=== PATIENT | female | born 1985 | race Caucasian/White ===

== ENCOUNTER → 2016-11-16 | Outpatient (REF) | payer OTHER ==
[2016-11-16 13:44] LABS: BASO % 0.3 % (0.0-1.0); EOS # 0.1 K/mm3 (0.0-0.50); EOS % 1.3 % (0.0-3.0); LARGE UNSTAINED CELL % 0.7 % (0.0-4.0); LYMPH # 1.1 K/mm3 (1.5-4.5); LYMPH % 18.6 % (24.0-44.0); MEAN CORPUSCULAR HEMOGLOBIN 29.6 pg (27.0-33.0); MEAN CORPUSCULAR HGB CONC 33.8 g/dl (32.0-36.5); MEAN CORPUSCULAR VOLUME 87.6 fl (80.0-96.0); MONO # 0.3 K/mm3 (0.0-0.8); NEUTROPHILS # 4.2 K/mm3 (1.8-7.7); NEUTROPHILS % 74.1 % (36.0-66.0); PLATELET COUNT, AUTOMATED 263 k/mm3 (150-450); WHITE BLOOD COUNT 5.6 K/mm3 (4.0-10.0)
[2016-11-16 14:08] LABS: ERYTHROCYTE SEDIMENTATION RATE 35 mm/hr (0-20)
[2016-11-16 14:21] LABS: ALBUMIN 3.5 GM/DL (3.2-5.2); ALBUMIN/GLOBULIN RATIO 1.17 (1.00-1.93); ALKALINE PHOSPHATASE 31 U/L (45-117); ALT/SGPT 22 U/L (12-78); ANION GAP 10 MEQ/L (8-16); AST/SGOT 8 U/L (15-37); BILIRUBIN,TOTAL 0.3 MG/DL (0.2-1.0); BLOOD UREA NITROGEN 6 MG/DL (7-18); CALCIUM LEVEL 9.4 MG/DL (8.5-10.1); CARBON DIOXIDE LEVEL 22 MEQ/L (21-32); CHLORIDE LEVEL 102 MEQ/L (98-107); CREATININE FOR GFR 0.41 MG/DL (0.55-1.02); GLOMERULAR FILTRATION RATE > 60.0 (>60); GLUCOSE, FASTING 75 MG/DL (70-105); POTASSIUM SERUM 3.8 MEQ/L (3.5-5.1); SODIUM LEVEL 134 MEQ/L (136-145); TOTAL PROTEIN 6.5 GM/DL (6.4-8.2)
[2016-11-16 14:27] LABS: FOLATE > 24.0 NG/ML; VITAMIN B12 LEVEL 263 PG/ML
[2016-11-20 10:40] LABS: ALBUMIN 3.87 GM/DL (3.29-5.55); ALBUMIN % 59.6 % (55.8-66.1); GAMMA GLOBULIN % 7.6 % (11.1-18.8)
[2016-11-21 08:07] LABS: Lyme Disease IgG/IgM Antibodie <0.91 ISR (0.00-0.90); Lyme Disease IgM Ab Quantitati <0.80 index (0.00-0.79); VITAMIN E LEVEL 15.8 mg/L (5.3-16.8)
== END ==
LOC: M LABNEURO 13:22
PROVIDERS: ATTEND Psychiatry & Neurology Neurology
DX: G62.9 Polyneuropathy, unspecified (principal)

== ENCOUNTER 2017-03-22 05:11 | Emergency (ER) | payer OTHER ==
[~2017-03-22] VITALS: Ht 157.5 cm; Wt 100.0 kg
[2017-03-22 05:20] VITALS: BP 148/72
[2017-03-22] MEDS ORDERED: PRENTAB55 PO (05:29)
[2017-03-22] MEDS ORDERED: VITA500046 PO (05:29)
[2017-03-22] MEDS ORDERED: BENA25CA4 PO (05:29)
[2017-03-22] MEDS ORDERED: IRON50TA PO (05:29)
[2017-03-22] MEDS ORDERED: UNIS25TA2 PO (05:29)
[2017-03-22] MEDS ORDERED: MAGN400T5 PO (05:29)
[2017-03-22] MEDS ORDERED: LOVE1INJ SC (05:29)
[2017-03-22] MEDS ORDERED: diphenhydrAMINE INJ 50MG/ML VIAL (J1200) IV STA (05:46)
[2017-03-22] MEDS ORDERED: methylPREDNISolone INJ 125 MG/2 ML VIAL (J2930) IV ONE (06:00)
[2017-03-22] MEDS ORDERED: FAMOTIDINE INJ 20MG/2ML VIAL (S0028) IVP ONE (06:00)
== END 2017-03-22 07:07 | disposition home or self-care (01) ==
LOC: M ED 05:11
DX: O9A.213 Injury, poisoning and certain other consequences of external causes complicating pregnancy, third trimester (principal); R22.0 Localized swelling, mass and lump, head; T37.8X5A Adverse effect of other specified systemic anti-infectives and antiparasitics, initial encounter; X58.XXXA Exposure to other specified factors, initial encounter; Y92.89 Other specified places as the place of occurrence of the external cause; Y93.89 Activity, other specified; Y99.8 Other external cause status; Z3A.36 36 weeks gestation of pregnancy
CPT/HCPCS: 96374; 96375; 99284; J1200; J2930

== ENCOUNTER 2017-04-08 20:02 | Outpatient (CLI) | payer OTHER ==
[~2017-04-08] VITALS: Ht 157.5 cm; Wt 102.0 kg
[~2017-04-08 20:02] MED LIST: BENA25CA4 PO; IRON50TA PO; LOVE1INJ SC; MAGN400T5 PO; PRENTAB55 PO; UNIS25TA2 PO; VITA500046 PO
[2017-04-08 20:24] VITALS: BP 131/80
[2017-04-08] MEDS ORDERED: HEPA10004 IJ (21:01)
[2017-04-08 21:35] VITALS: BP 140/91
== END 2017-04-08 21:58 | disposition home or self-care (01) ==
LOC: M LDO 20:02
PROVIDERS: ATTEND Obstetrics & Gynecology
DX: O36.8130 Decreased fetal movements, third trimester, not applicable or unspecified (principal); Z3A.39 39 weeks gestation of pregnancy; D68.51 Activated protein C resistance; Z88.8 Allergy status to other drugs, medicaments and biological substances; O99.113 Other diseases of the blood and blood-forming organs and certain disorders involving the immune mechanism complicating pregnancy, third trimester; O99.843 Bariatric surgery status complicating pregnancy, third trimester

== ENCOUNTER 2017-04-09 06:11 | Inpatient (IN) | payer OTHER ==
[~2017-04-09] VITALS: Ht 157.5 cm; Wt 102.0 kg
[2017-04-09] VITALS (50 sets, daily range): BP systolic 89–143; BP diastolic 47–78
[~2017-04-09 06:11] MED LIST changes: +HEPA10004 IJ
[2017-04-09] MEDS ORDERED: LACTATED RINGER'S 1000 ML IV STA (07:57)
[2017-04-09] MEDS ORDERED: miSOPROStol 25 MCG 1/4 TAB (S0191) PV ONE (08:00)
[2017-04-09 08:54] LABS: MEAN CORPUSCULAR HEMOGLOBIN 30.8 pg (27.0-33.0); MEAN CORPUSCULAR HGB CONC 34.3 g/dl (32.0-36.5); MEAN CORPUSCULAR VOLUME 89.9 fl (80.0-96.0); PLATELET COUNT, AUTOMATED 257 10^3/uL (150-450); RED CELL DISTRIBUTION WIDTH 14.4 % (11.5-14.5); WHITE BLOOD COUNT 8.2 10^3/uL (4.0-10.0)
[2017-04-09] MEDS: LR 1,000 ML IV SCH ×3 (10:01→23:57)
[2017-04-09] MEDS: BUTORPHANOL 2 MG/ML INJ (J0595) IV PRN ×3 (11:03→18:38)
[2017-04-09] MEDS ORDERED: OXYTOCIN 30 UNITS IN 0.9% NaCl 500ML IV BAG (J2590) As Ordered ONE (13:55)
[2017-04-09] MEDS ORDERED: OXYTOCIN DRIP 30 UNITS in APPROPRIATE DILUENT 1 EA IV SCH (14:00)
--- NOTE | 2017-04-09 18:55 | HPEPDOC ---
Obstetrical History & Physical General Date of Admission Apr 09, 2017 at 06:11 History of Present Illness Chay is a 32yo with SIUP at 39w2d who presented this morning for scheduled IOL in heparin window, being treated for Factor V Leiden heterozygosity. She feels well, good movement, only rare ctx, no LOF/VB. Problem List: 1) Factor V Leiden heterozygous -NO hx of blood clot -On Lovenox through until changed to Heparin BID at 36wk 2) Hx of gastric sleeve and continued obesity (pre- BMI 38) -normal nutrition labs -Growth scan Feb at 34 wk = 67%ile -22lb weight gain in -Normal fingersticks at 28wk 3) A negative MBT -received Rhogam on 25 January at 28wk 4) Upper extremity nerve pain -Was on gabapentin until 5 months -Following with neurology, declined physical therapy 5) NIPT showed a 2% risk for Klinefelter Syndrome -Will obtain cord blood in green heparin vacutainer tube for chromosome analysis 6) Migraines -Rx Mg Oxide 7) Seasonal allergies -Rx zyrtec -frequent sinus infections, took augmentin a few times in 8) Insomnia 9) PCOS Chief Complaint: Induction of labor Information Provided By: Patient Care Care: Good Care Dating Final EDC: Apr 14, 2017 Final EDC by: 1st trimester (US) Antepartum Course Diagnos(e)s See HPI for extensive problem list 2% risk for infant having Klinefelter Syndrome by elevated risk on NIPT Height (inches): 62 Pre- weight (lbs.): 203 Admission Weight (lbs.): 225 Change in Weight (lbs.): 22 Past Medical History Past Obstetrical History : Past Obstetrical History: Primgravida (One early sab in 2012) DRAWER IN DOBBY LOOM History: Other (PCOS) Past Medical History Medical History See HPI for extensive problem list Surgical History: Abdominoplasty, Gallbladder, Tonsilectomy, Other (gastric sleeve 2014, sinus surgery x2, carpal tunnel x2) Family History Significant Family History: Noncontributory Social History Marital Status: Family situation: Spouse/partner home Psychosocial History: Anxiety * Smoker: non-smoker Alcohol: Denies Drugs: denies Imunizations Tdap status: current Influenza Status: current Allergies Coded Allergies: Fluconazole (Verified Allergy, Mild, LIP SWELLING, 03/22/17) Levofloxacin (Verified Allergy, Mild, HIVES, 03/22/17) Medications Scheduled (Unisom) 25 Mg Tab, 50 MG PO QHS Cholecalciferol (Vitamin D) 5,000 Unit Tab, 5,000 UNIT PO DAILY Diphenhydramine HCl (Benadryl Allergy) 25 Mg Cap, 25 MG PO QHS Ferrous Sulfate (Iron (Ferrous Sulfate)) 50 Mg Tab, 325 MG PO BID Magnesium Oxide (Magnesium Oxide 400) 400 Mg Tab, 400 MG PO BID Multivitamins/ ( ) 1 Tab Tab, 1 TAB PO DAILY Miscellaneous Medications Heparin Sodium (Porcine) (Heparin Sodium) 5,000 Unit/0.5 Ml Inj, 5,000 UNIT IJ Physical Examination Physical Examination GENERAL: Alert and oriented times three. BREAST: . ABDOMEN: Gravid and non-tender to touch. Abdominoplasty scars noted. FETUS: Is vertex (VTX) by TAUS EXTREMITIES: trace edema of BLE Vital Signs/I&O Vital Signs Date Time Temp Pulse Resp B/P (MAP) Pulse Ox O2 Delivery O2 Flow Rate FiO2 04/09/17 16:28 63 18 99/52 (68) 04/09/17 13:13 97.8 I&O- Last 24 Hours up to 6 AM 04/10/17 06:00 Intake Total 1000 ml Output Total 2100 ml Balance -1100 ml Laboratory Data 24H LABS Laboratory Tests 2 04/09/17 07:10: Serology Scanned Report Hepatitis B Testing 04/09/17 08:48: Nucleated Red Blood Cells % (auto) 0.0, Urine Amphetamines Screen NEGATIVE, Urine Benzodiazepines Screen NEGATIVE, Urine Opiates Screen NEGATIVE, Urine Methadone Screen NEGATIVE, Urine Barbiturates Screen NEGATIVE, Urine Phencyclidine Screen NEGATIVE, Urine Cocaine Metabolite Screen NEGATIVE, Urine Cannabinoids Screen NEGATIVE, Syphilis Serology NONREACTIVE CBC/BMP Laboratory Tests 04/09/17 08:48 Red Blood Count 3.86 L, Mean Corpuscular Volume 89.9, Mean Corpuscular Hemoglobin 30.8, Mean Corpuscular Hemoglobin Concent 34.3, Red Cell Distribution Width 14.4 Urine Culture: No Growth Pertinent Laboratoy Data Blood Type: A- RBC Antibody Screen: Negative HIV: Negative Hepatitis B: Negative Hepatitis C: Unknown Rapid Plasma Reagin: Nonreactive Rubella: Immune Varicella: Immune Chlamydia/Gonorrhea: Negative Group B Streptococcus: Negative Quad Screen Test: Negative Cystic Fibrosis: Negative Anatomy Ultrasound Ultrasound Date: Nov 28, 2016 Placenta Location: Anterior Normal Anatomy: Yes Placenta Previa: No Other Ultrasounds 05 Mar 2017, 34wk GS, 67%ile Steroid Therapy Steroid Therapy: No Vaginal Examination Dilation: 1cm Effacement: 50% Station: -3 Cervical Consistency: Medium Cervical Position: Middle Presentation: Cephalic presentation Assessment Heart Rate (FHR): 130 Variability: Moderate Accelerations: Positive Decelerations: None Tocometer Contractions: No Assessment/Plan Assessment Chay is a 32yo with SIUP at 39w2d who is admitted for IOL in heparin window, being treated for Factor V Leiden heterozygosity. Cephalic presentation , GBS negative. SCE /-3. FHRT Cat I. Problem List: 1) Factor V Leiden heterozygous -NO hx of blood clot -On Lovenox through until changed to Heparin BID at 36wk 2) Hx of gastric sleeve and continued obesity (pre- BMI 38) -normal nutrition labs -Growth scan Feb at 34 wk = 67%ile -22lb weight gain in -Normal fingersticks at 28wk 3) A negative MBT -received Rhogam on 25 January at 28wk 4) Upper extremity nerve pain -Was on gabapentin until 5 months -Following with neurology, declined physical therapy 5) NIPT showed a 2% risk for Klinefelter Syndrome -Will obtain cord blood in green heparin vacutainer tube for chromosome analysis 6) Migraines -Rx Mg Oxide 7) Seasonal allergies -Rx zyrtec -frequent sinus infections, took augmentin a few times in 8) Insomnia 9) PCOS Plan Admit and orient. Counseled and consented for IOL Diet: regular for breakfast then clear liquids Group B Streptococcus (GBS) negative Labs and intravenous (IV) per unit protocol. Counseled on cytotec, meneses bulb, Pitocin and induction of labor (IOL). Meneses bulb placed without incident, 40ml in uterine port of cook catheter 25mcg cytotec placed vaginally Stadol 2mg IV q4hr prn pain, patient aware she is a candidate for epidural and order placed for when patient is in active labor Lactated Ringers (LR): Bolus 1000 mL, then at 125 mL/hr. Anticipate normal spontaneous delivery () C-S as appropriate. Plan to obtain cord blood for chromosomal analysis, nursing team aware and green topped tubes obtained Plan to restart Lovenox [address] Divina Iverson MD [place] Divina Bryant MD Apr 09, 2017 18:55
--- NOTE | 2017-04-09 18:59 | IPNPDOC ---
Text Note Date of Service The patient was seen on 04/09/17. NOTE Intrapartum Note Chay is doing well. Does not yet desire epidural, had one dose of IV stadol with excellent pain control. Wells bulb fell out approx 2 hours ago. Pitocin was started earlier and has been titrated up to 6mu. Vitals wnl Cat I FHRT Ctx are difficult to pick up and delivery driver on toco, but by observing pt, occurring approx q2- 4min SCE now /-3 Plan to continue to titrate pitocin per protocol Ok to repeat IV stadol 2mg x1 Will recheck SCE when patient more uncomfortable safe to proceed Dr. Divina Iverson MD [place] [facility] VS,Theodora, I+O VS, Theodora, I+O Laboratory Tests 04/09/17 08:48 Red Blood Count 3.86 L, Mean Corpuscular Volume 89.9, Mean Corpuscular Hemoglobin 30.8, Mean Corpuscular Hemoglobin Concent 34.3, Red Cell Distribution Width 14.4 Vital Signs Date Time Temp Pulse Resp B/P (MAP) Pulse Ox O2 Delivery O2 Flow Rate FiO2 04/09/17 16:28 63 18 99/52 (68) 04/09/17 13:13 97.8 I&O- Last 24 Hours up to 6 AM 04/10/17 06:00 Intake Total 1000 ml Output Total 2100 ml Balance -1100 ml Divina Iverson MD Apr 09, 2017 18:59
[2017-04-09] MEDS ORDERED: FENTANYL 2MCG/ML ROPIVACAINE 0.2% IN 0.9% NACL 200ML IVBAG As Ordered ONE (20:39)
[2017-04-09] MEDS ORDERED: ePHEDrine SULFATE 25 MG/5 ML(5MG/ML) SYRINGE As Ordered ONE (22:12)
[2017-04-09] MEDS: ePHEDrine SULFATE 25 MG/5 ML(5MG/ML) SYRINGE IV PRN ×2 (22:16→22:24)
[2017-04-09] MEDS ORDERED: FENTANYL/ROPIVACAINE/NACL BAG 200 ML EPIDURAL SCH (22:30)
[2017-04-09] MEDS ORDERED: EPIDURAL/PCA KEYS XX PRN (22:30)
[2017-04-09] MEDS ORDERED: diphenhydrAMINE INJ 50MG/ML VIAL (J1200) IV PRN (22:30)
[2017-04-09] MEDS ORDERED: REFRIGERATOR IV KEYS XX PRN (22:30)
[2017-04-09] MEDS ORDERED: NALOXONE INJ 0.4 MG/1 ML VIAL (J2310) IV PRN (22:30)
[2017-04-09] MEDS ORDERED: LACTATED RINGER'S 1000 ML IV PRN (22:30)
[2017-04-09] MEDS ORDERED: ONDANSETRON 4MG/2ML VIAL (J2405) IV PRN (22:30)
[2017-04-09] MEDS ORDERED: EPIDURAL COMMENT XX SCH (22:30)
[2017-04-09] MEDS ORDERED: ACETAMINOPHEN TAB 650MG DOSE (2X325MG) PO ONE (22:45)
[2017-04-09] MEDS ORDERED: PHENYLEPHRINE INJ 10MG/ML VIAL (J2370) IV PRN (22:45)
[2017-04-10] VITALS (33 sets, daily range): BP systolic 77–129; BP diastolic 38–72
--- NOTE | 2017-04-10 01:05 | IPNPDOC ---
Text Note Date of Service The patient was seen on 04/10/17. NOTE Intrapartum Note Called to room by RN for SROM with meconium, minimal variability in FHRT Patient had run of shallow late decelerations after epidural earlier around 2230. Mom was symptomatic with nausea/headache with only slightly lower bp's, so mom was given ephedrine, placed on her side, given O2 and pitocin was turned off. FHR decelerations resolved for a time with noted moderate variability, but then FHR pattern became slightly "sinusoidal" appearing for approx 12 minutes and resolved to a period of moderate variability followed by a 7 minute stretch of minimal variability. Sometime during that period SROM also occurred with thick meconium noted. SCE was performed by RN and reported 4/ 50/-3 with head being ballotable. Patient comfortable with epidural, only feeling slight cramping sensation. BP's 90's/50's SCE 5/75/-3, amniotic fluid slowly allowed to flow out so that head came to eventually rest on the cervix and no longer ballotable. IUPC and FSE placed. FHR tolerated well. With the head stim, FHRT showed moderate variability and accelerations. Will plan to perform 250ml NS amnioinfusion x1 If continued Cat I FHRT for 30 min, will plan to restart pitocin at 2mu and titrate up per protocol to tolerance and adequate MVUs by IUPC if possible Currently 20min of Cat I FHRT observed since placement of FSE/IUPC Safe to proceed Dr. Divina Iverson MD [place] MICHELLE GUZMAN,Theodora I+O VSTheodora I+O Laboratory Tests 04/09/17 08:48 Red Blood Count 3.86 L, Mean Corpuscular Volume 89.9, Mean Corpuscular Hemoglobin 30.8, Mean Corpuscular Hemoglobin Concent 34.3, Red Cell Distribution Width 14.4 Vital Signs Date Time Temp Pulse Resp B/P (MAP) Pulse Ox O2 Delivery O2 Flow Rate FiO2 04/09/17 19:10 16 04/09/17 18:57 72 94/51 (65) 04/09/17 18:30 97.4 Divina Iverson MD Apr 10, 2017 01:05
[2017-04-10] MEDS: ePHEDrine SULFATE 25 MG/5 ML(5MG/ML) SYRINGE IV PRN (02:31)
--- NOTE | 2017-04-10 05:29 | IPNPDOC ---
Text Note Date of Service The patient was seen on 04/10/17. NOTE Intrapartum Note I was called to room by RN for patient feeling pressure and recent stop of pitocin for FHRT with periods of minimal variability and recent late decel. Patient feeling pain with contractions, has not yet been using button for epidural boluses. Vitals wnl SCE 5/75/-2 Return of mod maxwell with SCE but also a coinciding FHRT decel from 150's to 120's that resolved over 3 min, Cat I-II FHRT. Ctx q2-4min IUPC and FSE still functioning Plan to continue to titrate pitocin up to adequate MVUs as FHRT will allow Meconium present prior to last check- NICU physician will be notified of this for delivery Will recheck in 2-4hr or earlier as indicated Dr. Divina Iverson MD [place] MARTINEZ VS,Theodora, I+O VS, Theodora, I+O Laboratory Tests 04/09/17 08:48 Red Blood Count 3.86 L, Mean Corpuscular Volume 89.9, Mean Corpuscular Hemoglobin 30.8, Mean Corpuscular Hemoglobin Concent 34.3, Red Cell Distribution Width 14.4 Vital Signs Date Time Temp Pulse Resp B/P (MAP) Pulse Ox O2 Delivery O2 Flow Rate FiO2 04/10/17 04:49 75 102/51 (68) 04/10/17 04:02 98.9 22 Divina Iverson MD Apr 10, 2017 05:29
[2017-04-10] MEDS ORDERED: ACETAMINOPHEN TAB 650MG DOSE (2X325MG) PO PRN (06:00)
[2017-04-10] MEDS ORDERED: TERBUTALINE SULFATE 1 MG/ML VIAL (J3105) As Ordered ONE (07:52)
[2017-04-10] MEDS ORDERED: TERBUTALINE SULFATE 1 MG/ML VIAL (J3105) SC ONE (08:00)
[2017-04-10] MEDS ORDERED: ceFAZolin 2 GM/D5W 50 ML IV BAG (J0690 PER 500MG) As Ordered ONE (08:14)
[2017-04-10] MEDS ORDERED: BICITRA 30ML SOLN UDC As Ordered ONE (08:15)
[2017-04-10] MEDS ORDERED: AZITHROMYCIN INJ 500MG VIAL (J0456) As Ordered ONE (08:15)
[2017-04-10] MEDS ORDERED: AZITHROMYCIN INJ 500 MG, VIAL MATE ADAPTER 1 EACH in D5W 250 ML IV ONE (08:30)
[2017-04-10] MEDS ORDERED: BICITRA 30ML SOLN UDC PO ONE (08:30)
[2017-04-10] MEDS ORDERED: BUPIVACAINE HCL 0.25% 10 ML VIAL SC ONE (08:30)
[2017-04-10] MEDS ORDERED: METOCLOPRAMIDE INJ 10MG/2ML VIAL (J2765) As Ordered ONE (09:18)
[2017-04-10] MEDS ORDERED: ONDANSETRON 4MG/2ML VIAL (J2405) As Ordered ONE (09:18)
[2017-04-10] MEDS ORDERED: LIDOCAINE 2% W/EPIN INJ 20ML **PRES FREE As Ordered ONE (09:18)
[2017-04-10] MEDS ORDERED: OXYTOCIN INJ 10 UNITS/ML VIAL (J2590) As Ordered ONE (09:18)
[2017-04-10] MEDS ORDERED: MORPHINE PRES-FREE INJ 10 MG/10 ML VIAL (J2274) As Ordered ONE (09:19)
[2017-04-10] MEDS ORDERED: ONDANSETRON 4MG/2ML VIAL (J2405) IV PRN ×2 (09:25→10:30)
[2017-04-10] MEDS ORDERED: KETOROLAC 60 MG/2 ML VIAL (J1885) As Ordered ONE (09:25)
[2017-04-10] MEDS ORDERED: NALOXONE INJ 0.4 MG/1 ML VIAL (J2310) IV PRN ×2 (09:25)
[2017-04-10 09:40] LABS: CORD GAS ABE A -3.9; CORD GAS HCO3 A 24.1 MEQ/L; CORD GAS O2 SAT A 20.3 %; CORD GAS PCO2 A 56.7 mmHg; CORD GAS PH A 7.247 UNITS; CORD GAS PO2 A 15.4 mmHg; CORD GAS SBC A 19.6 MEQ/L; CORD GAS TCO2 A 25.9 MEQ/L
[2017-04-10 09:42] LABS: CORD GAS ABE V -7.3; CORD GAS HCO3 V 18.3 MEQ/L; CORD GAS O2 SAT V 40.4 %; CORD GAS PCO2 V 37.1 mmHg; CORD GAS PH V 7.31 UNITS; CORD GAS PO2 V 20.5 mmHg; CORD GAS SBC V 17.5 MEQ/L; CORD GAS TCO2 V 19.4 MEQ/L
[2017-04-10] MEDS ORDERED: fentaNYL 100 MCG/2 ML INJECTION (J3010) IV PRN (10:30)
[2017-04-10] MEDS ORDERED: METOCLOPRAMIDE INJ 10MG/2ML VIAL (J2765) IV PRN (10:30)
[2017-04-10] MEDS ORDERED: MEPERIDINE INJ 25 MG/ML VIAL (J2175) IV PRN (10:30)
[2017-04-10] MEDS ORDERED: LR 1,000 ML IV SCH (10:30)
[2017-04-10] MEDS ORDERED: NALBUPHINE HCL 10 MG/ML AMP (J2300) IV PRN (10:30)
[2017-04-10] MEDS ORDERED: PERCOCET 5MG/325MG TAB PO PRN (10:30)
[2017-04-10] MEDS ORDERED: RHOGAM 300 MCG (1500 IU) INJ (J2790) IM SCH (11:00)
[2017-04-10] MEDS ORDERED: MEASLES,MUMPS,RUBELLA VACCINE INJ (MMR-II) (90707) SC SCH (11:00)
[2017-04-10] MEDS ORDERED: ANUSOL HC CREAM 30GM TOP PRN (11:00)
[2017-04-10] MEDS ORDERED: METHYLERGONOVINE MALEATE 0.2 MG TAB PO PRN (11:00)
[2017-04-10] MEDS ORDERED: MEPERIDINE INJ 25 MG/ML VIAL (J2175) As Ordered ONE (11:27)
[2017-04-10] MEDS: LR 1,000 ML IV SCH ×3 (12:00→21:14)
[2017-04-10] MEDS: PRENATAL VITAMINS CHEWABLE TABLET PO SCH (12:31)
[2017-04-10] MEDS: METOCLOPRAMIDE INJ 10MG/2ML VIAL (J2765) IV PRN ×2 (15:22→21:39)
[2017-04-10] MEDS: NALBUPHINE HCL 10 MG/ML AMP (J2300) IV PRN ×3 (16:27→21:39)
[2017-04-10] MEDS: SLF 3 ML SYR IV SCH (21:08)
[2017-04-10] MEDS: DOCUSATE SODIUM 100 MG CAP PO PRN (21:08)
[2017-04-10] MEDS: PERCOCET 5MG/325MG TAB PO PRN (21:10)
[2017-04-11] MEDS: SLF 3 ML SYR IV PRN ×2 (00:54→03:31)
[2017-04-11] MEDS: PERCOCET 5MG/325MG TAB PO PRN ×4 (01:26→20:13)
[2017-04-11 02:00] VITALS: BP 106/59
[2017-04-11] MEDS: NALBUPHINE HCL 10 MG/ML AMP (J2300) IV PRN (03:30)
[2017-04-11] MEDS: SLF 3 ML SYR IV SCH ×3 (06:00→22:14)
[2017-04-11 06:02] VITALS: BP 116/68
[2017-04-11 07:00] LABS: MEAN CORPUSCULAR HEMOGLOBIN 30.6 pg (27.0-33.0); MEAN CORPUSCULAR HGB CONC 34.4 g/dl (32.0-36.5); MEAN CORPUSCULAR VOLUME 88.8 fl (80.0-96.0); PLATELET COUNT, AUTOMATED 191 10^3/uL (150-450); RED CELL DISTRIBUTION WIDTH 14.4 % (11.5-14.5); WHITE BLOOD COUNT 11.1 10^3/uL (4.0-10.0)
[2017-04-11] MEDS: PRENATAL VITAMINS CHEWABLE TABLET PO SCH (08:04)
[2017-04-11] MEDS: ENOXAPARIN 40 MG/0.4 ML SYRINGE (J1650) SC SCH (08:05)
[2017-04-11 10:00] VITALS: BP 105/58
[2017-04-11] MEDS: LR 1,000 ML IV SCH ×2 (10:44→15:57)
[2017-04-11 14:00] VITALS: BP 107/58
[2017-04-11] MEDS: MOM 30ML SUSPENSION UDC PO PRN (14:42)
--- NOTE | 2017-04-11 17:20 | IPN ---
DATE: 04/10/2017 This patient's requested circumcision of their male infant. After discussing risks and benefits of circumcision, the medical and nonmedical indications of penile block and aftercare, expressed understanding of penile block, aftercare, and complications. Signed a witnessed consent form. We await the clearance by the rotary helper.
[2017-04-11 18:00] VITALS: BP 105/58
[2017-04-11] MEDS: DOCUSATE SODIUM 100 MG CAP PO PRN (20:13)
[2017-04-11 22:22] VITALS: BP 109/55
[2017-04-11] MEDS ORDERED: diphenhydrAMINE INJ 50MG/ML VIAL (J1200) IV ONE (22:30)
[2017-04-12] MEDS: PERCOCET 5MG/325MG TAB PO PRN ×5 (00:53→23:12)
[2017-04-12 05:47] VITALS: BP 104/62
[2017-04-12] MEDS: SLF 3 ML SYR IV SCH ×3 (06:00→22:00)
[2017-04-12] MEDS: LR 1,000 ML IV SCH ×2 (07:11→16:21)
[2017-04-12] MEDS: ENOXAPARIN 40 MG/0.4 ML SYRINGE (J1650) SC SCH (07:49)
[2017-04-12] MEDS: PRENATAL VITAMINS CHEWABLE TABLET PO SCH (07:50)
[2017-04-12] MEDS ORDERED: SIMETHICONE 80 MG CHEW TAB PO PRN (12:00)
--- NOTE | 2017-04-12 15:29 | IPN ---
DATE: 04/11/2017 This lady had a section for multiple reasons basically, nonreassuring heart tones, she is known to be Leiden Factor V, PCOS, BMI of greater than 38, previous surgical intervention with a gastric sleeve and liposuction. On her first day, her vital signs are blood pressure was 116/68, respirations are 20, pulse is 98, temperature 98.1. Her hemoglobin 9.3, hematocrit 27.0, platelets were 191. We discussed phlebitis, cystitis, mastitis, endometritis and cellulitis, diet, exercise pain management, perineal, breast and wound care. She is planning on showering today, mobilizing. We will start Lovenox at 0900 hours and she will may be maintained on that for the next 6 weeks. She does only have heparin at home. However, we will encourage her not to use that, but would use the Lovenox as prescribed and a prescription will be sent to [facility]. The patient is , doing well, is over the nausea and extreme pain. Incision is clean and dry and patient is looking forward to discharge tomorrow morning. The rest of the examination is unremarkable. No evidence of DVT, PE or superficial phlebitis. Chest is clear bilaterally to bases. No wheezes or rhonchi. No CVA tenderness. Four quadrant bowel sounds are noted. She has some pedal edema secondary to weight and varicosities, otherwise essentially negative.
[2017-04-12] MEDS: MOM 30ML SUSPENSION UDC PO PRN (17:16)
--- NOTE | 2017-04-12 17:34 | RO ---
DATE OF PROCEDURE: 04/10/2017 HISTORY: This lady is a 32-year-old 2, para 0 who was admitted for induction of labor. She had previously been seen the day before for decreased movement. Finding that it was safe to proceed, she was booked for induction of labor. She had a Wells bulb inserted and one dose of Cytotec. She very slowly dilated up to about 4 cm after which Pitocin was started and a ARM was done draining meconium stained liquor. She had intermittent category II, category I strips. She had the occasional late deceleration. An amnio infusion was performed. The patient was given Stadol and Phenergan then followed up by an epidural. She eventually got to 5 cm dilatation with the presenting part was not in the pelvis and she had some persistent late decelerations. At that time because of nonreassuring heart tones and failure to progress, failure to dilate, meconium stained liquor it was elected to go ahead and do an emergency section. After discussing the risks and benefits of the section including hemorrhage, infection, perforation, , reoperation, high-risk of infection because this lady has had a previous liposuction and gastric sleeve bypass; she also suffers from migraines, insomnia, polycystic ovary syndrome (PCOS), body mass index (BMI) greater than 38, Rh negative and nerve pain on gabapentin and she is Leiden factor V heterozygous she had her expressed understanding of the risks and benefits, signed and witnessed the consent form and we are preparing for section under prophylactic antibiotics. PREOPERATIVE DIAGNOSES: Decreased movement, nonreassuring heart tones, meconium stained liquor, failure to progress, failure to descend. POSTOPERATIVE DIAGNOSES: Decreased movement, nonreassuring heart tones, meconium stained liquor, failure to progress, failure to descend. OPERATIVE PROCEDURE: SURGEON: Austyn Owusu MD MEDICAL MANAGER: Dr. Iverson. ANESTHESIA: Spinal. ESTIMATED BLOOD LOSS: 450 mL DESCRIPTION OF PROCEDURE: After adequate time-out and Wells catheter, bladder draining clear urine, sequential on board, antibiotics prophylactically preop Ancef, plus azithromycin, a Pfannenstiel incision was made through the low transverse incision, through very poor vascular and circulatory skin from previous surgery, passing through abdominal layers securing hemostasis as we went. Opening into the peritoneal cavity we reflected the bladder well down anteriorly. Low transverse incision was made into the uterus, meconium stained liquid persistent, occiput posterior, delivered a live male infant weighing 7 pounds 11 ounces, 3411 grams, of 8 and 9 at one and five minutes respectively. Arterial and venous pH were performed. We also took separate blood samples for genetic and karyotyping as this lady had a 2% risk of Klinefelter syndrome. With that done, the placenta was manually removed. Three-vessel in the cord, membranes and tissues intact. It was sent off to pathology under separate cover. The uterus contracted well down on Pitocin. The lower segment was oversewn in usual fashion in two layers embrocating the second layer. Reperitonealized was performed. Instrument pad count correct. Both ovaries and tubes appeared to be normal. The abdomen was then closed, running stitch for the peritoneum, same for the fascia, interrupted for subcu. Marcaine 0.25% 10 mL to the skin, spray and Telfa and the patient was sent back to recovery in good condition. She will be restarted on her Lovenox at 24 hours after surgery as we had a window of heparin opportunity.
[2017-04-12 18:01] VITALS: BP 131/64
[2017-04-12] MEDS: DOCUSATE SODIUM 100 MG CAP PO PRN (21:12)
[2017-04-12] MEDS: diphenhydrAMINE 25 MG CAP PO SCH (23:10)
[2017-04-13] MEDS: diphenhydrAMINE 25 MG CAP PO SCH (05:24)
[2017-04-13] MEDS: PERCOCET 5MG/325MG TAB PO PRN (05:26)
--- NOTE | 2017-04-13 06:39 | IPNPDOC ---
Progress Note Date of Service Apr 13, 2017 Progress Note POD 3 Chay is a 32yo [id number] s/p uncomplicated PLTCS at 39+wk for inability to augment with NRFHT. She has had a benign post-op course, doing well on POD 3. Tolerating regular diet, ambulating and voiding spontaneously without issue. Breast and bottle feeding. Denies f/c/n/v/CP/SOB. Pain well controlled. Lochia minimal. She stayed an extra day for baby needing bili light 2/2 jaundice. Problem List: 1) Factor V Leiden heterozygous -NO hx of blood clot -On Lovenox through until changed to Heparin BID at 36wk 2) Hx of gastric sleeve and continued obesity (pre- BMI 38) -normal nutrition labs -Growth scan Feb at 34 wk = 67%ile -22lb weight gain in -Normal fingersticks at 28wk 3) A negative MBT -received Rhogam on 25 January at 28wk 4) Upper extremity nerve pain -Was on gabapentin until 5 months -Following with neurology, declined physical therapy 5) NIPT showed a 2% risk for Klinefelter Syndrome - cord blood obtained from placenta at delivery for chromosome analysis 6) Migraines -Rx Mg Oxide 7) Seasonal allergies -Rx zyrtec -frequent sinus infections, took augmentin a few times in 8) Insomnia 9) PCOS Vitals wnl, afebrile General: WDWN, resting comfortably in bed Abdomen: soft, ND, appropriately tender to palpation, fundus firm at u-2cm, pfannensteil incision is intact with no erythema/drainage/induration Extremities: trace edema of BLE, no tenderness with palpation of calves Labs: pre-op CBC 8.2/11.9/34.7/257 post-op CBC 11.1/9.3/27/191 Assessment: Chay is a 32yo [id number] s/p uncomplicated PLTCS at 39+wk for inability to augment with NRFHT. She has had a benign post-op course, doing well on POD 3. Vitals wnl, appropriate drop in H/H post-op. Hemodynamically stable with no evidence of infection. Desires discharge today. Plan: -plan for discharge home today -has home meds: percocet, tylenol (for after finishes percocet), colace, lanolin , dibucaine -paper script for lovenox 40mg SQ QD ([facility] closed today for weather) -breast and bottle feeding, has breast pump at home -discussed return precautions: fevers/chills, increasing abdominal pain, foul smelling discharge, signs of wound infection such as redness/drainage, breast pain/redness -discussed wound care- keep incision clean and dry -vaginal rest for 6 weeks, no heavy lifting greater than weight of baby -unsure of contraception, will discuss at PP visits -will be seen in clinic in [address] Divina Iverson MD [place] [facility] VS, I&O, 24H, Fishbone Vital Signs/I&O Vital Signs Date Time Temp Pulse Resp B/P (MAP) Pulse Ox O2 Delivery O2 Flow Rate FiO2 04/13/17 05:26 18 04/12/17 18:31 105 04/12/17 18:01 98.9 131/64 (86) 98 04/11/17 06:02 Room Air Divina Iverson MD Apr 13, 2017 06:39
--- NOTE | 2017-04-13 06:44 | DS.PDOC ---
Discharge Summary General Date of Admission Apr 09, 2017 at 06:11 Date of Discharge Apr 13, 2017 Attending Physician: Austyn Owusu MD Discharge Summary PROCEDURES PERFORMED DURING STAY: Primary low transverse section ADMITTING DIAGNOSES: 1) Factor V Leiden heterozygous -NO hx of blood clot -On Lovenox through until changed to Heparin BID at 36wk 2) Hx of gastric sleeve and continued obesity (pre- BMI 38) -normal nutrition labs -Growth scan 13 Feb at 34 wk = 67%ile -22lb weight gain in -Normal fingersticks at 28wk 3) A negative MBT -received Rhogam on 25 January at 28wk 4) Upper extremity nerve pain -Was on gabapentin until 5 months -Following with neurology, declined physical therapy 5) NIPT showed a 2% risk for Klinefelter Syndrome - cord blood obtained from placenta at delivery for chromosome analysis 6) Migraines -Rx Mg Oxide 7) Seasonal allergies -Rx zyrtec -frequent sinus infections, took augmentin a few times in 8) Insomnia 9) PCOS DISCHARGE DIAGNOSES: 1) Factor V Leiden heterozygous -NO hx of blood clot -On Lovenox through until changed to Heparin BID at 36wk 2) Hx of gastric sleeve and continued obesity (pre- BMI 38) -normal nutrition labs -Growth scan 13 Feb at 34 wk = 67%ile -22lb weight gain in -Normal fingersticks at 28wk 3) A negative MBT -received Rhogam on 25 January at 28wk 4) Upper extremity nerve pain -Was on gabapentin until 5 months -Following with neurology, declined physical therapy 5) NIPT showed a 2% risk for Klinefelter Syndrome - cord blood obtained from placenta at delivery for chromosome analysis 6) Migraines -Rx Mg Oxide 7) Seasonal allergies -Rx zyrtec -frequent sinus infections, took augmentin a few times in 8) Insomnia 9) PCOS 10) Status post primary low transverse section at 39+wk for inability to augment with NRFHT after beginning induction of labor in heparin window COMPLICATIONS/CHIEF COMPLAINT: Induction of labor in heparin window HISTORY OF PRESENT ILLNESS/HOSPITAL COURSE: Chay is a 32yo [id number] s/p uncomplicated PLTCS at 39+wk for inability to augment with NRFHT. She has had a benign post-op course. On POD 3 at time of discharge she had vitals wnl, appropriate drop in H/H post-op. She was hemodynamically stable with no evidence of infection and desired discharge. DISCHARGE MEDICATIONS: Please see below. ALLERGIES: Please see below. PHYSICAL EXAMINATION ON DISCHARGE: Vitals wnl, afebrile General: WDWN, resting comfortably in bed Abdomen: soft, ND, appropriately tender to palpation, fundus firm at u-2cm, pfannensteil incision is intact with no erythema/drainage/induration Extremities: trace edema of BLE, no tenderness with palpation of calves LABORATORY DATA: pre-op CBC 8.2/11.9/34.7/257 post-op CBC 11.1/9.3/27/191 ACTIVITY: vaginal rest for 6 weeks, no heavy lifting greater than weight of baby DIET: regular DISCHARGE PLAN/Instructions: -plan for discharge home today -has home meds: percocet, tylenol (for after finishes percocet), colace, lanolin , dibucaine -paper script for lovenox 40mg SQ QD ([facility] closed today for weather) -breast and bottle feeding, has breast pump at home -discussed return precautions: fevers/chills, increasing abdominal pain, foul smelling discharge, signs of wound infection such as redness/drainage, breast pain/redness -discussed wound care- keep incision clean and dry -vaginal rest for 6 weeks, no heavy lifting greater than weight of baby -unsure of contraception, will discuss at PP visits -will be seen in clinic in 2 weeks for incision check DISPOSITION: Home DISCHARGE CONDITION: Stable TIME SPENT ON DISCHARGE: Greater than 30 minutes. MD Cb Gill Vital Signs/I&Os Vital Signs Date Time Temp Pulse Resp B/P (MAP) Pulse Ox O2 Delivery O2 Flow Rate FiO2 04/13/17 05:26 18 04/12/17 18:31 105 04/12/17 18:01 98.9 131/64 (86) 98 04/11/17 06:02 Room Air Discharge Medications Scheduled (Unisom) 25 Mg Tab, 50 MG PO QHS, (Reported) Cholecalciferol (Vitamin D) 5,000 Unit Tab, 5,000 UNIT PO DAILY, (Reported) Diphenhydramine HCl (Benadryl Allergy) 25 Mg Cap, 25 MG PO QHS, (Reported) Ferrous Sulfate (Iron (Ferrous Sulfate)) 50 Mg Tab, 325 MG PO BID, (Reported) Magnesium Oxide (Magnesium Oxide 400) 400 Mg Tab, 400 MG PO BID, (Reported) Multivitamins/ ( 19) 1 Tab Tab, 1 TAB PO DAILY, (Reported) Miscellaneous Medications Heparin Sodium (Porcine) (Heparin Sodium) 5,000 Unit/0.5 Ml Inj, 5,000 UNIT IJ, (Reported) Allergies Coded Allergies: Fluconazole (Verified Allergy, Mild, LIP SWELLING, 03/22/17) Levofloxacin (Verified Allergy, Mild, HIVES, 03/22/17) Divina Iverson MD Apr 13, 2017 06:44
[2017-04-13 07:30] LABS: MEAN CORPUSCULAR HEMOGLOBIN 30.2 pg (27.0-33.0); MEAN CORPUSCULAR HGB CONC 33.7 g/dl (32.0-36.5); MEAN CORPUSCULAR VOLUME 89.7 fl (80.0-96.0); PLATELET COUNT, AUTOMATED 234 10^3/uL (150-450); RED CELL DISTRIBUTION WIDTH 13.8 % (11.5-14.5); WHITE BLOOD COUNT 7.8 10^3/uL (4.0-10.0)
[2017-04-13] MEDS ORDERED: TYLE325T5 PO (07:30)
[2017-04-13] MEDS ORDERED: PERC5TAB12 PO (07:30)
[2017-04-13] MEDS ORDERED: LOVE1INJ SC (07:30)
[2017-04-13] MEDS ORDERED: COLA100C5 PO (07:30)
[2017-04-13] MEDS: PRENATAL VITAMINS CHEWABLE TABLET PO SCH (09:07)
[2017-04-13] MEDS: ENOXAPARIN 40 MG/0.4 ML SYRINGE (J1650) SC SCH (09:08)
--- NOTE | 2017-04-14 07:40 | IPN ---
DATE: 04/12/2107 day 1. This lady had a section for nonreassuring heart tones, Factor V Leiden, BMI 38, heparin window, Rh negative, nerve pain, migraines and failure to descend or dilate. She was supposed to go home today, however, the baby is under the lights. She is also having some pain issues regarding her lower incisional site. Her admitting hemoglobin 11.9, hematocrit 34.7, platelets 257. day #1 hemoglobin 9.3, hematocrit 27.0, platelets 191. She was started on Lovenox as prophylaxis because of Leiden V heterozygous. Her vital signs today her blood pressure is 104/62, respirations 16, pulse is 95 and temperature is 97.6. We discussed phlebitis, cystitis, mastitis, endometritis and cellulitis, diet, exercise pain management, perineal, breast and wound care. We also have her Lovenox ordered out at [facility] for her to pickup and continue for 6 weeks . She is to have a two week incision check and six week check. We will discuss control at that time in the form of an IUCD. The patient is anxious for discharge, awaiting the baby to be taken off to light. She herself is now under control with pain medications. She has been given her medications to take home and plan discharge tomorrow morning.
[2017-04-15] MEDS ORDERED: PERC5TAB12 PO (13:32)
[2017-04-15] MEDS ORDERED: KEFL500C17 PO (13:45)
[2017-04-18] MEDS ORDERED: BENA25CA4 PO (07:19)
[2017-04-18] MEDS ORDERED: ZYRT10CA PO (07:19)
[2017-04-18] MEDS ORDERED: ZANT1TAB PO (07:19)
[2017-04-18] MEDS ORDERED: CLIN150C14 PO (15:17)
== END 2017-04-13 11:15 | disposition home or self-care (01) | DRG 765 ==
LOC: M LDI 06:11 → M OBS 04-10 11:53
PROVIDERS: ADMIT Obstetrics & Gynecology; ATTEND Obstetrics & Gynecology
PROC: 3E0P7GC Introduction of Other Therapeutic Substance into Female Reproductive, Via Natural or Artificial Opening (ICD-10-PCS; 2017-04-09)
PROC: 10D00Z1 Extraction of Products of Conception, Low, Open Approach (ICD-10-PCS; principal; 2017-04-10 12:40)
DX: O99.12 Other diseases of the blood and blood-forming organs and certain disorders involving the immune mechanism complicating childbirth (principal); D68.2 Hereditary deficiency of other clotting factors; O99.214 Obesity complicating childbirth; E66.9 Obesity, unspecified; Z68.38 Body mass index [BMI] 38.0-38.9, adult; Z3A.39 39 weeks gestation of pregnancy; O99.844 Bariatric surgery status complicating childbirth; J30.2 Other seasonal allergic rhinitis; O99.52 Diseases of the respiratory system complicating childbirth; O76 Abnormality in fetal heart rate and rhythm complicating labor and delivery; O77.0 Labor and delivery complicated by meconium in amniotic fluid; O62.0 Primary inadequate contractions; Z37.0 Single live birth

== ENCOUNTER 2017-04-15 10:43 | Emergency (ER) | payer OTHER ==
[2017-04-15] MEDS: diphenhydrAMINE INJ 50MG/ML VIAL (J1200) IV (12:37)
[2017-04-15] MEDS: NS 1,000 ML IV (12:37)
[2017-04-15] MEDS: METOCLOPRAMIDE INJ 10MG/2ML VIAL (J2765) IV (12:37)
[2017-04-15] MEDS: MORPHINE 2 MG/ML 1ML SYRINGE IV (12:38)
[2017-04-15 12:42] LABS: BASO % 0.2 % (0.0-1.0); EOS # 0.2 10^3/uL (0.0-0.50); EOS % 2.6 % (0.0-3.0); IMMATURE GRANULOCYTE # 0.1 10^3/uL (0-0); IMMATURE GRANULOCYTE % 0.8 % (0-0); LYMPH % 14.9 % (24.0-44.0); MEAN CORPUSCULAR HEMOGLOBIN 30.5 pg (27.0-33.0); MEAN CORPUSCULAR HGB CONC 33.6 g/dl (32.0-36.5); MONO # 0.5 10^3/uL (0.0-0.8); MONO % 8.3 % (0.0-5.0); NEUTROPHILS # 4.8 10^3/uL (1.8-7.7); NEUTROPHILS % 73.2 % (36.0-66.0); PLATELET COUNT, AUTOMATED 375 10^3/uL (150-450); RED CELL DISTRIBUTION WIDTH 13.8 % (11.5-14.5); WHITE BLOOD COUNT 6.5 10^3/uL (4.0-10.0)
[2017-04-15 13:01] LABS: ANION GAP 9 MEQ/L (8-16); BLOOD UREA NITROGEN 9 MG/DL (7-18); CALCIUM LEVEL 8.4 MG/DL (8.5-10.1); CARBON DIOXIDE LEVEL 26 MEQ/L (21-32); CHLORIDE LEVEL 107 MEQ/L (98-107); CREATININE FOR GFR 0.52 MG/DL (0.55-1.02); GLOMERULAR FILTRATION RATE > 60.0 (>60); GLUCOSE, FASTING 74 MG/DL (70-105); POTASSIUM SERUM 3.7 MEQ/L (3.5-5.1); SODIUM LEVEL 142 MEQ/L (136-145)
== END 2017-04-15 14:03 | disposition home or self-care (01) ==
LOC: M ED 10:43
DX: G89.18 Other acute postprocedural pain (principal); N39.0 Urinary tract infection, site not specified; Z98.84 Bariatric surgery status
CPT/HCPCS: J1200

== ENCOUNTER 2017-04-18 07:07 | Emergency (ER) | payer OTHER ==
[2017-04-18 08:27] LABS: BASO % 0.2 % (0.0-1.0); EOS # 0.1 10^3/uL (0.0-0.50); EOS % 1.1 % (0.0-3.0); IMMATURE GRANULOCYTE # 0.1 10^3/uL (0-0); IMMATURE GRANULOCYTE % 0.8 % (0-0); LYMPH # 1.4 10^3/uL (1.5-4.5); LYMPH % 11.6 % (24.0-44.0); MEAN CORPUSCULAR HEMOGLOBIN 30.1 pg (27.0-33.0); MEAN CORPUSCULAR HGB CONC 33.3 g/dl (32.0-36.5); MEAN CORPUSCULAR VOLUME 90.4 fl (80.0-96.0); MONO # 0.8 10^3/uL (0.0-0.8); MONO % 6.1 % (0.0-5.0); NEUTROPHILS # 9.8 10^3/uL (1.8-7.7); NEUTROPHILS % 80.2 % (36.0-66.0); PLATELET COUNT, AUTOMATED 563 10^3/uL (150-450); RED CELL DISTRIBUTION WIDTH 13.7 % (11.5-14.5); WHITE BLOOD COUNT 12.3 10^3/uL (4.0-10.0)
[2017-04-18] MEDS: diphenhydrAMINE 25 MG CAP PO (09:53)
[2017-04-18] MEDS: PERCOCET 5MG/325MG TAB PO (09:54)
[2017-04-18 10:27] LABS: ANION GAP 8 MEQ/L (8-16); BLOOD UREA NITROGEN 9 MG/DL (7-18); CALCIUM LEVEL 8.4 MG/DL (8.5-10.1); CARBON DIOXIDE LEVEL 25 MEQ/L (21-32); CHLORIDE LEVEL 107 MEQ/L (98-107); CREATININE FOR GFR 0.55 MG/DL (0.55-1.02); GLOMERULAR FILTRATION RATE > 60.0 (>60); GLUCOSE, FASTING 80 MG/DL (70-105); POTASSIUM SERUM 4.4 MEQ/L (3.5-5.1); SODIUM LEVEL 140 MEQ/L (136-145)
[2017-04-18] MEDS: GASTROGRAFIN SOLUTION 30ML PO (11:31)
[2017-04-18] MEDS: GASTROGRAFIN SOLUTION 30ML (Q9963) PO (11:31)
[2017-04-18] MEDS ORDERED: ISOVUE-370 76% 100ML VIAL (Q9967) As Ordered (12:38)
== END 2017-04-18 15:35 | disposition home or self-care (01) ==
LOC: M ED 07:07
DX: O90.0 Disruption of cesarean delivery wound (principal); O99.53 Diseases of the respiratory system complicating the puerperium; J45.909 Unspecified asthma, uncomplicated; O99.13 Other diseases of the blood and blood-forming organs and certain disorders involving the immune mechanism complicating the puerperium; D68.59 Other primary thrombophilia; Z79.899 Other long term (current) drug therapy; Z88.1 Allergy status to other antibiotic agents; Z88.8 Allergy status to other drugs, medicaments and biological substances
CPT/HCPCS: Q9963

== ENCOUNTER 2017-04-19 15:41 | Observation (INO) | payer OTHER ==
[2017-04-19] MEDS ORDERED: LANOLIN HYDROUS OINT 30GM TUBE TOP (15:45)
[2017-04-19] MEDS ORDERED: PERCOCET 5MG/325MG TAB PO ×2 (15:45)
[2017-04-19] MEDS ORDERED: NORCO, ANEXSIA 5/325MG TABLET (HYDROcodone/ACETAMINOPHEN) PO (18:30)
[2017-04-19] MEDS: AMPICILLIN SOD 2 GM in APPROPRIATE DILUENT 20 ML IV ×2 (19:02→22:37)
[2017-04-19] MEDS: GENTAMICIN 80 MG in APPROPRIATE DILUENT 1 EA IV (19:38)
[2017-04-19] MEDS: NORCO, ANEXSIA 5/325MG TABLET (HYDROcodone/ACETAMINOPHEN) PO (19:38)
[2017-04-19] MEDS: CLINDAMYCIN 900 MG in APPROPRIATE DILUENT 1 EA IV (21:25)
[2017-04-19] MEDS: DOCUSATE SODIUM 100 MG CAP PO (21:25)
[2017-04-20] MEDS: GENTAMICIN 80 MG in APPROPRIATE DILUENT 1 EA IV ×3 (01:34→17:01)
[2017-04-20] MEDS: NORCO, ANEXSIA 5/325MG TABLET (HYDROcodone/ACETAMINOPHEN) PO ×4 (01:36→20:39)
[2017-04-20] MEDS: AMPICILLIN SOD 2 GM in APPROPRIATE DILUENT 20 ML IV ×4 (05:01→23:06)
[2017-04-20] MEDS: diphenhydrAMINE 25 MG CAP PO ×2 (05:06→20:39)
[2017-04-20] MEDS: CLINDAMYCIN 900 MG in APPROPRIATE DILUENT 1 EA IV ×3 (05:43→21:36)
[2017-04-20] MEDS: PRENATAL VITAMINS CHEWABLE TABLET PO (08:44)
[2017-04-20] MEDS: DOCUSATE SODIUM 100 MG CAP PO ×2 (08:44→20:39)
[2017-04-20] MEDS: ENOXAPARIN 40 MG/0.4 ML SYRINGE (J1650) SC (08:45)
[2017-04-20 09:40] LABS: BASO % 0.3 % (0.0-1.0); EOS # 0.1 10^3/uL (0.0-0.50); EOS % 2.2 % (0.0-3.0); IMMATURE GRANULOCYTE % 0.5 % (0-0); LYMPH # 1.7 10^3/uL (1.5-4.5); LYMPH % 25.4 % (24.0-44.0); MEAN CORPUSCULAR HEMOGLOBIN 29.5 pg (27.0-33.0); MEAN CORPUSCULAR VOLUME 92.2 fl (80.0-96.0); MONO # 0.4 10^3/uL (0.0-0.8); MONO % 5.5 % (0.0-5.0); NEUTROPHILS # 4.3 10^3/uL (1.8-7.7); NEUTROPHILS % 66.1 % (36.0-66.0); PLATELET COUNT, AUTOMATED 652 10^3/uL (150-450); RED CELL DISTRIBUTION WIDTH 13.7 % (11.5-14.5); WHITE BLOOD COUNT 6.5 10^3/uL (4.0-10.0)
[2017-04-21] MEDS: GENTAMICIN 80 MG in APPROPRIATE DILUENT 1 EA IV ×2 (01:15→09:44)
[2017-04-21] MEDS: AMPICILLIN SOD 2 GM in APPROPRIATE DILUENT 20 ML IV (04:37)
[2017-04-21] MEDS: CLINDAMYCIN 900 MG in APPROPRIATE DILUENT 1 EA IV (05:22)
[2017-04-21] MEDS: NORCO, ANEXSIA 5/325MG TABLET (HYDROcodone/ACETAMINOPHEN) PO ×2 (05:22→09:52)
[2017-04-21] MEDS: DOCUSATE SODIUM 100 MG CAP PO (09:48)
[2017-04-21] MEDS: PRENATAL VITAMINS CHEWABLE TABLET PO (09:48)
[2017-04-21] MEDS: ENOXAPARIN 40 MG/0.4 ML SYRINGE (J1650) SC (09:48)
== END 2017-04-21 11:20 | disposition home or self-care (01) ==
LOC: M PED 15:41
DX: O86.0 Infection of obstetric surgical wound (principal); O90.2 Hematoma of obstetric wound; O99.13 Other diseases of the blood and blood-forming organs and certain disorders involving the immune mechanism complicating the puerperium; D68.51 Activated protein C resistance; O99.215 Obesity complicating the puerperium; O99.845 Bariatric surgery status complicating the puerperium; Z79.899 Other long term (current) drug therapy
CPT/HCPCS: 96365

== ENCOUNTER → 2017-05-14 | Outpatient (REF) | payer OTHER ==
[2017-05-14 15:20] LABS: MISCELLANEOUS TEST LAB See Separate Report
== END ==
LOC: M LABNEURO 12:31
DX: D61.818 Other pancytopenia (principal)

== ENCOUNTER → 2017-11-01 | Outpatient (CLI) | payer OTHER | LOC: M RAD 16:28 | DX: J32.9 Chronic sinusitis, unspecified (principal) | CPT/HCPCS: 70486 ==

== ENCOUNTER → 2018-01-09 | Outpatient (CLI) | payer OTHER | LOC: M RAD 08:07 | DX: R10.11 Right upper quadrant pain (principal); Z90.49 Acquired absence of other specified parts of digestive tract | CPT/HCPCS: 76705 ==

== ENCOUNTER 2018-01-18 21:59 | Emergency (ER) | payer OTHER ==
[2018-01-19] MEDS: NS 1,000 ML IV (00:48)
[2018-01-19] MEDS: ONDANSETRON 4MG/2ML VIAL (J2405) IV (00:49)
[2018-01-19 01:15] LABS: BASO % 0.4 % (0.0-1.0); EOS # 0.1 10^3/uL (0.0-0.50); EOS % 0.9 % (0.0-3.0); HEMATOCRIT 39.5 % (36.0-47.0); HEMOGLOBIN 13.2 g/dl (12.0-15.5); IMMATURE GRANULOCYTE % 0.1 % (0-3.0); LYMPH # 2.8 10^3/uL (1.5-4.5); LYMPH % 36.6 % (24.0-44.0); MEAN CORPUSCULAR HEMOGLOBIN 29.3 pg (27.0-33.0); MEAN CORPUSCULAR HGB CONC 33.4 g/dl (32.0-36.5); MEAN CORPUSCULAR VOLUME 87.8 fl (80.0-96.0); MONO # 0.5 10^3/uL (0.0-0.8); MONO % 5.8 % (0.0-5.0); NEUTROPHILS # 4.3 10^3/uL (1.8-7.7); NEUTROPHILS % 56.2 % (36.0-66.0); PLATELET COUNT, AUTOMATED 325 10^3/uL (150-450); RED CELL DISTRIBUTION WIDTH 13.5 % (11.5-14.5); WHITE BLOOD COUNT 7.7 10^3/uL (4.0-10.0)
[2018-01-19 01:24] LABS: KETONE, URINE AUTO RFX 1+ mg/dL (NEGATIVE); LEUKOCYTE ESTERASE UR AUTO RFX NEGATIVE (NEGATIVE); MUCUS, URINE RFX SMALL (NEGATIVE); NITRITE, URINE AUTO RFX NEGATIVE (NEGATIVE); RBC, URINE AUTO RFX 12 /HPF (0-3); SPECIFIC GRAVITY UR AUTO RFX 1.024 (1.002-1.035); SQUAM EPITHELIAL CELL UR AURFX 1 /HPF (0-6); WBC, URINE AUTO RFX 0 /HPF (0-3)
[2018-01-19 01:49] LABS: ALBUMIN 4.2 GM/DL (3.2-5.2); ALBUMIN/GLOBULIN RATIO 1.31 (1.00-1.93); ALKALINE PHOSPHATASE 39 U/L (45-117); ALT/SGPT 43 U/L (12-78); ANION GAP 11 MEQ/L (8-16); AST/SGOT 15 U/L (7-37); BILIRUBIN,DIRECT 0.1 MG/DL (0.0-0.2); BILIRUBIN,TOTAL 0.4 MG/DL (0.2-1.0); BLOOD UREA NITROGEN 9 MG/DL (7-18); CALCIUM LEVEL 8.8 MG/DL (8.5-10.1); CARBON DIOXIDE LEVEL 23 MEQ/L (21-32); CHLORIDE LEVEL 108 MEQ/L (98-107); CREATININE FOR GFR 0.76 MG/DL (0.55-1.30); GLOMERULAR FILTRATION RATE > 60.0 (>60); GLUCOSE, FASTING 83 MG/DL (70-100); HCG, SERUM QUANTITATIVE 2320 MIU/ML; LIPASE 197 U/L (73-393); POTASSIUM SERUM 3.9 MEQ/L (3.5-5.1); SODIUM LEVEL 142 MEQ/L (136-145); TOTAL PROTEIN 7.4 GM/DL (6.4-8.2)
== END 2018-01-19 02:20 | disposition home or self-care (01) ==
LOC: M ED 01-19 02:20
DX: O21.9 Vomiting of pregnancy, unspecified (principal); O99.281 Endocrine, nutritional and metabolic diseases complicating pregnancy, first trimester; E86.0 Dehydration; Z3A.01 Less than 8 weeks gestation of pregnancy; O34.81 Maternal care for other abnormalities of pelvic organs, first trimester; N83.201 Unspecified ovarian cyst, right side; N83.02 Follicular cyst of left ovary; O99.511 Diseases of the respiratory system complicating pregnancy, first trimester; J45.909 Unspecified asthma, uncomplicated; O99.111 Other diseases of the blood and blood-forming organs and certain disorders involving the immune mechanism complicating pregnancy, first trimester; D68.51 Activated protein C resistance; O99.841 Bariatric surgery status complicating pregnancy, first trimester; Z98.890 Other specified postprocedural states; Z88.8 Allergy status to other drugs, medicaments and biological substances; Z88.1 Allergy status to other antibiotic agents
CPT/HCPCS: J2405

== ENCOUNTER 2018-07-08 16:26 | Outpatient (CLI) | payer OTHER ==
[~2018-07-08] VITALS: Ht 157.5 cm; Wt 103.4 kg
[~2018-07-08 16:26] MED LIST changes: +CLIN150C14 PO; +COLA100C5 PO; +KEFL500C17 PO; +LANO30GM TOP; +PERC5TAB12 PO; +TYLE325T5 PO; -UNIS25TA2 PO; +UNIS25TA3 PO; +ZANT150T15 PO; +ZYRT10CA PO
[2018-07-08 16:47] VITALS: BP 139/78
[2018-07-08] MEDS ORDERED: MAG-400T7 PO (17:00)
[2018-07-08] MEDS ORDERED: ALIG4CAP PO (17:00)
[2018-07-08] MEDS ORDERED: LOVE1INJ SC (17:02)
--- NOTE | 2018-07-08 17:48 | IPNPDOC ---
Text Note Date of Service The patient was seen on 07/08/18. NOTE 33 y/o at 30+2 for a fall down half her stairs. Hurt the side of her left foot only. Does not feel like she broke anything. Did not hit her head or her abdomen. No VB or ctx's. No LOF or abnl d/c. Pos FM. Preg c/b: Obesity Prior CD with wound infection FVL Heterozygous and father with VTE, on lovenox daily Rh Neg-no rhogam yet AMA VSSAF NAD A&O WNWD NST reassuring for EGA thus far, no ctx's Foot with no pt tenderness, nl range of motion-no need for XR a/p: Fall, very low suspicion for significant injury. Needs Rhogam, not received yet in this preg. Will get a CBC, PT, PTT, Fibr, T&S, and eventual rhogam before leaving tonight. Cont monitoring until 2100 minimum, 6 hrs from fall. Also formal US from [facility]. KRUEGER to Dr Iverson at [address] [facility]. Sessions SESSIONS,JUSTO Knight MD Jul 08, 2018 17:48
[2018-07-08 17:49] LABS: HEMATOCRIT 36.5 % (36.0-47.0); HEMOGLOBIN 12.2 g/dl (12.0-15.5); MEAN CORPUSCULAR HGB CONC 33.4 g/dl (32.0-36.5); MEAN CORPUSCULAR VOLUME 89.7 fl (80.0-96.0); PLATELET COUNT, AUTOMATED 246 10^3/uL (150-450); RED BLOOD COUNT 4.07 10^6/uL (4.00-5.40); WHITE BLOOD COUNT 8.6 10^3/uL (4.0-10.0)
[2018-07-08 18:02] LABS: INR 0.99; PROTHROMBIN TIME 13.2 SECONDS (12.1-14.4)
[2018-07-08 18:03] LABS: PARTIAL THROMBOPLASTIN TIME 28.3 SECONDS (25.4-37.6)
[2018-07-08 18:15] VITALS: BP 118/66
--- NOTE | 2018-07-08 19:40 | REP ---
Obstetric sonography: Limited exam. History: Injury in a fall. Findings: Limited obstetric sonography confirms presence of a living single intrauterine gestation in a head to the maternal right transverse lie. heart rate is recorded at 147 beats per minute. A fundal placenta is seen without evidence of previa. Amniotic fluid is subjectively normal. RAY is normal at 18.1 cm. SD ratio in the umbilical cord artery by Doppler is normal at 2.86. Biophysical profile score is eight out of a possible eight. Closed cervical length measured transabdominally is 4.4 cm. Electronically Signed by Patrick Longoria MD 07/08/2018 09:00 P
--- NOTE | 2018-07-08 23:04 | IPNPDOC ---
Text Note Date of Service The patient was seen on 07/08/18. NOTE Triage Note (Mobile of care) Chay is a 33yo at 30w2d who presented for a fall down half her stairs earlier today- she did not hit her head or abdomen and has had no vaginal bleeding or LOF or ctx. She has felt good movement. Dr. Rosario evaluated her in triage earlier in the day with recommendation for 6 hours of monitoring given the nature of her fall. Preg c/b: Obesity Prior CD with wound infection FVL Heterozygous and father with VTE, on lovenox daily Rh Neg-received rhogam 1 week ago AMA Vitals wnl, afebrile General: NAD, A&Ox3, resting comfortably in bed Abdomen: gravid, soft, no tenderness to palpation, no rebound/guarding, old bruises noted from lovenox administration Extremities: SCDs on and functioning Cat I FHRT, no ctx's Labs: WBC 8.6, H/H 12.2/36.5, plt 246 INR 13.2, PT 13.2, PTT 28.3, fibrinogen 562 KB 0.000 Radiology: 07/08/18 Findings: Limited obstetric sonography confirms presence of a living single intrauterine gestation in a head to the maternal right transverse lie. heart rate is recorded at 147 beats per minute. A fundal placenta is seen without evidence of previa. Amniotic fluid is subjectively normal. RAY is normal at 18.1 cm. SD ratio in the umbilical cord artery by Doppler is normal at 2.86. Biophysical profile score is eight out of a possible eight. Closed cervical length measured transabdominally is 4.4 cm. Assessment: Chay is a 33yo at 30w2d who presented for a fall down half her stairs earlier today with no evidence of placental abruption. She had a formal TAUS which had no abnormalities. Abruption labs were drawn which showed normal fibrinogen/coags/negative KB. heart rate monitoring has been Cat I and she has had no regular ctx on toco. She is Rh negative and received Rhogam about 1 week ago. Plan: -safe for discharge -keep next routine OB appt -return precautions discussed MD MEGAN Graham Fishbone, I+O Theodora GUZMAN I+O Laboratory Tests 07/08/18 17:41 Red Blood Count 4.07, Mean Corpuscular Volume 89.7, Mean Corpuscular Hemoglobin 30.0, Mean Corpuscular Hemoglobin Concent 33.4, Red Cell Distribution Width 14.4 Vital Signs Date Time Temp Pulse Resp B/P (MAP) Pulse Ox O2 Delivery O2 Flow Rate FiO2 07/08/18 18:15 83 18 118/66 (83) 07/08/18 16:47 98.8 Divina Iverson MD Jul 08, 2018 23:04
== END 2018-07-08 22:11 | disposition home or self-care (01) ==
LOC: M LDO 16:26
PROVIDERS: ATTEND Obstetrics & Gynecology
DX: Z04.3 Encounter for examination and observation following other accident (principal); W10.8XXA Fall (on) (from) other stairs and steps, initial encounter; Y92.89 Other specified places as the place of occurrence of the external cause; Y93.89 Activity, other specified; Y99.8 Other external cause status; Z3A.30 30 weeks gestation of pregnancy
CPT/HCPCS: 36415; 59025; 76815; 76820; 85027; 85384; 85460; 85610; 85730; 86850; 86870; 86900; 86901; G0378; G0463

== ENCOUNTER 2018-08-23 16:38 | Outpatient (CLI) | payer OTHER ==
[~2018-08-23] VITALS: Ht 157.5 cm; Wt 105.6 kg
[~2018-08-23 16:38] MED LIST changes: +ALIG4CAP PO; +MAG-400T7 PO
[2018-08-23 17:03] VITALS: BP 114/72
[2018-08-23 18:19] VITALS: BP 129/65
[2018-08-24] MEDS ORDERED: SENO8.6T5 PO (10:03)
[2018-08-24] MEDS ORDERED: HEPA1INJ IV (10:03)
== END 2018-08-23 18:51 | disposition home or self-care (01) ==
LOC: M LDO 16:38
PROVIDERS: ATTEND Obstetrics & Gynecology
DX: O26.893 Other specified pregnancy related conditions, third trimester (principal); Z3A.37 37 weeks gestation of pregnancy
CPT/HCPCS: 59025; G0378; G0463

== ENCOUNTER 2018-08-24 09:27 | Outpatient (CLI) | payer OTHER ==
[~2018-08-24] VITALS: Ht 157.5 cm; Wt 104.2 kg
[2018-08-24 09:49] VITALS: BP 114/64
[2018-08-24] MEDS ORDERED: SENO8.6T5 PO (10:03)
[2018-08-24] MEDS ORDERED: HEPA1INJ IV (10:03)
--- NOTE | 2018-08-24 10:40 | IPNPDOC ---
Text Note Date of Service The patient was seen on 08/24/18. NOTE 33 yo at 37+0 weeks gestation presented to L&D with the complaint of back pain, intermittent painful contractions, and n/v. She denies any leakage of fluid or vaginal bleeding. She reports these symptoms have been worsening over the last couple days. She was seen yesterday for contractions and was not dilated on exam. She has been taking Tylenol with minimal relief. Nausea has been a chronic issue during this and she gets relief from rectal phenergan. She is scheduled for a repeat c section on 09Sep2018. Chaperoned by L&D RN Vitals - VSS, afebrile, normotensive, non tachycardic General - AAOX3, laying in bed, NAD Abdomen - Gravid uterus, no fundal tenderness Cervix - cl/thick/high, posterior Extremities - No edema FHR - Reactive NST with moderate variability, +accels, no decels. No ctx on toco. Cervix remains closed. No ctx on toco and status remains reassuring. 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 Continue rectal phenergan PRN for nausea. She has follow up this ( monitoring). Return to care sooner for worsening pain, bleeding, leakage of fluid, decreased movement, or any other urgent concerns. Rajiv Pearson DO A-FIB/CHADSVASC A-FIB History Current/History of A-Fib/PAF?: No VS,Fishbone, I+O VS, Fishbone, I+O Vital Signs Date Time Temp Pulse Resp B/P (MAP) Pulse Ox O2 Delivery O2 Flow Rate FiO2 08/24/18 09:49 98.0 80 18 114/64 (81) RAJIV PEARSON DO August 24, 2018 10:40
== END 2018-08-24 10:25 | disposition home or self-care (01) ==
LOC: M LDO 09:27
PROVIDERS: ATTEND Obstetrics & Gynecology
DX: O26.893 Other specified pregnancy related conditions, third trimester (principal); Z3A.37 37 weeks gestation of pregnancy
CPT/HCPCS: 59025; G0378; G0463

== ENCOUNTER 2018-09-06 05:11 | Inpatient (IN) | payer OTHER ==
[~2018-09-06] VITALS: Ht 157.5 cm; Wt 103.6 kg
[2018-09-06] VITALS (8 sets, daily range): BP systolic 95–126; BP diastolic 51–78
[~2018-09-06 05:11] MED LIST changes: +CETI-36 PO; +CYCL10TA PO; +D-50TAB PO; +HEPA1INJ IV; +HEPA1INJ SC; +PROM25TA12 PR; +SENO8.6T5 PO
[2018-09-06] MEDS ORDERED: CYCL10TA PO (05:56)
[2018-09-06 06:00] LABS: HEMATOCRIT 36.2 % (36.0-47.0); HEMOGLOBIN 12.4 g/dl (12.0-15.5); MEAN CORPUSCULAR HGB CONC 34.3 g/dl (32.0-36.5); MEAN CORPUSCULAR VOLUME 87.7 fl (80.0-96.0); PLATELET COUNT, AUTOMATED 270 10^3/uL (150-450); RED BLOOD COUNT 4.13 10^6/uL (4.00-5.40); WHITE BLOOD COUNT 7.4 10^3/uL (4.0-10.0)
[2018-09-06] MEDS ORDERED: BICITRA 30ML SOLN UDC PO ONE (06:00)
[2018-09-06] MEDS ORDERED: LR 1,000 ML IV ONE (06:00)
[2018-09-06] MEDS ORDERED: ceFAZolin SOD 1 GM in D5W MINI-BAG PLUS 50 ML IV ONE (06:00)
[2018-09-06] MEDS ORDERED: LR 1,000 ML IV SCH (06:30)
[2018-09-06] MEDS ORDERED: OXYTOCIN INJ 10 UNITS/ML VIAL (J2590) As Ordered ONE ×2 (07:20→07:22)
[2018-09-06] MEDS ORDERED: MORPHINE PRES-FREE INJ 10 MG/10 ML VIAL (J2274) As Ordered ONE (07:20)
[2018-09-06] MEDS ORDERED: BUPIVACAINE/DEXTROSE 0.75% 2 ML AMP As Ordered ONE (07:37)
[2018-09-06] MEDS ORDERED: NALBUPHINE HCL 10 MG/ML AMP (J2300) IV PRN ×2 (07:41→09:45)
[2018-09-06] MEDS ORDERED: diphenhydrAMINE INJ 50MG/ML VIAL (J1200) IV PRN (07:41)
[2018-09-06] MEDS ORDERED: ONDANSETRON 4MG/2ML VIAL (J2405) IV PRN ×2 (07:41→09:45)
[2018-09-06] MEDS ORDERED: METOCLOPRAMIDE INJ 10MG/2ML VIAL (J2765) IV PRN ×2 (07:41→09:45)
[2018-09-06] MEDS ORDERED: NALOXONE INJ 0.4 MG/1 ML VIAL (J2310) IV PRN ×2 (07:41)
[2018-09-06] MEDS ORDERED: ePHEDrine SULFATE 25 MG/5 ML(5MG/ML) SYRINGE As Ordered ONE ×2 (07:47→09:24)
[2018-09-06] MEDS ORDERED: PHENYLephrine HCL 500 MCG/5 ML (100MCG/ML) SYRINGE (J2370) As Ordered ONE (07:47)
[2018-09-06] MEDS ORDERED: ONDANSETRON 4MG/2ML VIAL (J2405) As Ordered ONE ×2 (08:06→10:56)
[2018-09-06] MEDS: PRENATAL VITAMINS CHEWABLE TABLET PO SCH (09:00)
[2018-09-06] MEDS: DOCUSATE SODIUM 100 MG CAP PO SCH ×2 (09:00→20:23)
[2018-09-06] MEDS ORDERED: OXYTOCIN 30 UNITS IN 0.9% NaCl 500ML IV BAG (J2590) As Ordered ONE (09:33)
[2018-09-06] MEDS ORDERED: KETOROLAC 30 MG/ML VIAL (J1885) IV PRN (09:45)
[2018-09-06] MEDS ORDERED: RHOGAM 300 MCG (1500 IU) INJ (J2790) IM SCH (09:45)
[2018-09-06] MEDS ORDERED: fentaNYL 100 MCG/2 ML INJECTION (J3010) IV PRN (09:45)
[2018-09-06] MEDS ORDERED: PERCOCET 5MG/325MG TAB PO PRN (09:45)
[2018-09-06] MEDS ORDERED: MEPERIDINE INJ 25 MG/ML VIAL (J2175) IV PRN (09:45)
[2018-09-06] MEDS ORDERED: MEASLES,MUMPS,RUBELLA VACCINE INJ (MMR-II) (90707) SC SCH (09:45)
[2018-09-06] MEDS ORDERED: NORCO, ANEXSIA 5/325MG TABLET (HYDROcodone/ACETAMINOPHEN) PO PRN (09:45)
[2018-09-06] MEDS ORDERED: OXYTOCIN DRIP 30 UNITS in APPROPRIATE DILUENT 1 EA IV SCH (10:00)
[2018-09-06] MEDS: PERCOCET 5MG/325MG TAB PO PRN (11:37)
[2018-09-06] MEDS: KETOROLAC 30 MG/ML VIAL (J1885) IV SCH ×2 (12:44→18:06)
--- NOTE | 2018-09-06 13:17 | RO ---
DATE OF PROCEDURE: 09/06/2018 PREOPERATIVE DIAGNOSIS: Prior delivery and new diagnosis of cholestasis. POSTOPERATIVE DIAGNOSIS: Prior delivery and new diagnosis of cholestasis. OPERATIVE PROCEDURE: Elective repeat section. SURGEON: Dr. Grant Rosario QUILLER MACHINE FIXER: Dr. Austyn Owusu ANESTHESIA: Spinal. ESTIMATED BLOOD LOSS: 500 mL. DRAINS: 100 mL in the Wells catheter. FLUIDS REPLACED: 1600 mL of lactated Ringer's in the operating room. PREOPERATIVE ANTIBIOTICS: Ancef 3 grams IV. SPECIMENS: None. FINDINGS: Pfannenstiel skin incision and low transverse uterine incision, clear fluid, male in good shape, score 9/9, a single loose nuchal cord, weight 3210 grams or 7 pounds 1 ounce, uncomplicated. INDICATION: Patient was brought in early at 38 weeks and 6 days due to cholestasis been diagnosed. Her original elective repeat section was scheduled for next week. DESCRIPTION OF OPERATION: The patient was taken to the operating room with an IV in place where a spinal anesthetic was easily obtained. She was then laid down in the dorsal supine position with a leftward tilt and a Wells catheter was placed. Post spinal heart tones were normal of the fetus, and she was prepped and draped in normal sterile fashion. After confirming that spinal was indeed adequate, the 's presence was requested and a Pfannenstiel skin incision down to the layer of fascia was performed, fascia nicked in the midline and extended bilaterally to extend to the skin incision. Of note, her fascia was exceedingly thick, 2-3 times the normal thickness. We tented up the superior and inferior edges of the fascial incision and dissected off the rectus muscles underneath sharply. We then rectus muscles in the midline and breeched the peritoneum with my digit without difficulty, and after noting no scar tissue we created a peritoneal window with a gentle stretch. Bladder blade was placed. Bladder flap was easily created in low transverse. Uterine incision was carried down to the amnion, extended bilaterally the extent needed and amniotomy, clear fluid was noted. The was delivered atraumatically through the uterine incision with fundal pressure and elevating the head without difficulty. Infant was noted to be in good condition with a spontaneous cry and good tone. Cord was clamped times two and cut, and the infant was handed off to waiting pediatric team. Cord blood was obtained. The placenta was delivered under traction and with fundal massage, and the uterus was delivered through the abdomen and wrapped in warm sponge. Bladder blade was placed and I cleared out the uterine cavity times two with dry sponges. There were no trailing membranes present. I then closed the uterus from left to right with a running locked suture of #0 Vicryl. A #0 Monocryl stitch was then used to imbricate from left to right. Irrigation was performed behind the uterus. The uterus was returned to its anatomical position. The colic gutters were cleared bilaterally and one final inspection showed hemostasis from the uterine incision. There was also good tone noted of the uterus. The peritoneum was closed from superior to inferior with #3-0 Vicryl and the rectus muscles were reapproximated times three with interrupted stitches. The fascia was closed from left to right with running suture of #0 Vicryl without difficulty and the subcutaneous tissue was copiously irrigated due to her history of a prior wound infection. I then closed the subcutaneous fat in two layers both the deep and superficial. The skin was then closed with #4-0 Monocryl in a subcuticular fashion and a Prevena vacuum wound dressing was placed over the incision without difficulty. Overall section was uncomplicated, straightforward and all counts were correct including sponge, needle and instruments. The patient will receive Lovenox in 8 hours due to her known factor V Leiden status and the fact that she received Lovenox throughout her and heparin after 36 weeks. Edited: 09/06/2018 1317 reina CHAVEZ
[2018-09-06] MEDS: LR 1,000 ML IV SCH ×2 (15:00→23:00)
[2018-09-06] MEDS: ENOXAPARIN 40 MG/0.4 ML SYRINGE (J1650) SC SCH (17:11)
[2018-09-07] MEDS: KETOROLAC 30 MG/ML VIAL (J1885) IV SCH ×2 (00:16→06:05)
[2018-09-07 02:00] VITALS: BP 101/55
[2018-09-07 06:00] VITALS: BP 106/59
[2018-09-07 06:31] LABS: HEMATOCRIT 34.1 % (36.0-47.0); HEMOGLOBIN 11.2 g/dl (12.0-15.5); MEAN CORPUSCULAR HEMOGLOBIN 29.6 pg (27.0-33.0); MEAN CORPUSCULAR HGB CONC 32.8 g/dl (32.0-36.5); MEAN CORPUSCULAR VOLUME 90.2 fl (80.0-96.0); PLATELET COUNT, AUTOMATED 251 10^3/uL (150-450); RED BLOOD COUNT 3.78 10^6/uL (4.00-5.40); WHITE BLOOD COUNT 8.6 10^3/uL (4.0-10.0)
[2018-09-07] MEDS: PRENATAL VITAMINS CHEWABLE TABLET PO SCH (08:00)
[2018-09-07] MEDS: DOCUSATE SODIUM 100 MG CAP PO SCH ×2 (08:00→21:01)
--- NOTE | 2018-09-07 09:10 | IPNPDOC ---
Text Note Date of Service The patient was seen on 09/07/18. NOTE POD1 ERCS States feeling well, pain controlled with prescribed meds. Baby bonding and feeding well. No heavy VB. Lochia slowing. Ambulatory. Tolerating PO without issues since last night, had significant nausea yest. Wells out, voiding well, UO adequate. VSSAF NAD A&O RRR CTAB LE no C/C/E Ut at U-2, firm Inc with no induration or fluctuance, no collection of fluid underneath, wound vac in place and no leaks in the seal CBC this AM expected a/p: Doing well. Cont routine postop care. D/C tomorrow likely. Has meds. Sessions A-FIB/CYNDI A-FIB History Current/History of A-Fib/PAF?: No VS,Fishbone, I+O VS, Fishbone, I+O Laboratory Tests 09/07/18 06:03 Red Blood Count 3.78 L, Mean Corpuscular Volume 90.2, Mean Corpuscular Hemoglobin 29.6, Mean Corpuscular Hemoglobin Concent 32.8, Red Cell Distribution Width 14.8 H Vital Signs Date Time Temp Pulse Resp B/P (MAP) Pulse Ox O2 Delivery O2 Flow Rate FiO2 09/07/18 06:00 98.1 81 18 106/59 (75) 98 I&O- Last 24 Hours up to 6 AM 09/07/18 06:00 Intake Total 2551 ml Output Total 2125 ml Balance 426 ml SESSIONS,JUSTO Knight MD September 07, 2018 09:10
[2018-09-07 10:00] VITALS: BP 92/56
[2018-09-07] MEDS: IBUPROFEN 800 MG TAB PO SCH ×2 (14:00→21:02)
[2018-09-07] MEDS: PERCOCET 5MG/325MG TAB PO PRN ×2 (14:05→21:01)
[2018-09-07 14:11] VITALS: BP 123/74
[2018-09-07] MEDS: ENOXAPARIN 40 MG/0.4 ML SYRINGE (J1650) SC SCH (17:03)
[2018-09-07 18:06] VITALS: BP 127/61
[2018-09-07 22:00] VITALS: BP 112/59
[2018-09-08] MEDS: PERCOCET 5MG/325MG TAB PO PRN ×2 (01:03→05:45)
[2018-09-08 02:00] VITALS: BP 98/55
[2018-09-08] MEDS: IBUPROFEN 800 MG TAB PO SCH (05:44)
[2018-09-08 05:49] VITALS: BP 98/58
[2018-09-08] MEDS: PRENATAL VITAMINS CHEWABLE TABLET PO SCH (07:47)
[2018-09-08] MEDS: DOCUSATE SODIUM 100 MG CAP PO SCH (07:47)
[2018-09-08] MEDS ORDERED: COLA100C5 PO (10:36)
[2018-09-08] MEDS ORDERED: IBUP80TA PO (10:36)
[2018-09-08] MEDS ORDERED: PERCOCET PO (10:36)
[2018-09-08] MEDS ORDERED: LOVE1INJ SC (10:36)
--- NOTE | 2018-09-08 10:53 | IPNPDOC ---
Progress Note Date of Service: September 08, 2018 Day#: 2 Progress Note POD 2 SUBJECT: Chay is a 33yo [id number] s/p uncomplicated scheduled RLTCS on 09/06 for hx of prior , doing well post-op/ day # 2. She has been ambulating, voiding spontaneously without issue and tolerating regular diet. Breast feeding without issue. Reports lochia is minimal. Pain is well controlled with medications. No fevers/chills/nausea/vomiting/CP/SOB. OBJECTIVE: VITAL SIGNS: Within normal limits, afebrile. Alert and oriented times three. Abdomen: Fundus firm at U-2. Soft, appropriately tender to palpation. Pfannensteil incision is covered by Provena wound vac, good seal all around and no strikethrough noted, wound vac functioning Extremities: no edema of BLE, no pain with palpation of calves Labs: pre-op H/H: 12.4/36.2 post-op H/H: 11.2/34.1 ASSESSMENT: Chay is a 33yo [id number] s/p uncomplicated scheduled RLTCS on 09/06 for hx of prior , doing well post-op/ day # 2. Vitals within normal limits, afebrile, hemodynamically stable with no evidence of infection. PLAN: 1. Discharge to home today. 2. Has home meds: lovenox, percocet, motrin, colace. Will continue lovenox for 6 weeks. 3. follow-up visit scheduled in [address] Rosario in clinic 4. Discussed return precautions at length: fevers/chills, increasing abdominal pain, evidence of wound infection, foul smelling vaginal discharge, very heavy vaginal bleeding, breast redness/pain, persistent low mood or anything else that is concerning 5. vaginal rest for 6 weeks and no heavy lifting 6. Ok to shower, don't let shower water directly hit wound vac, if edges start to peel up place new tegaderm to maintain seal, remove in 1 week as previously discussed with Dr. Marlene Iverson MD VS, I&O, 24H, Fishbone Vital Signs/I&O Vital Signs Date Time Temp Pulse Resp B/P (MAP) Pulse Ox O2 Delivery O2 Flow Rate FiO2 09/08/18 06:15 16 09/08/18 05:49 96.9 84 98/58 (25) 97 I&O- Last 24 Hours up to 6 AM 09/08/18 06:00 Output Total 650 ml Balance -650 ml Divina Iverson MD September 08, 2018 10:53
--- NOTE | 2018-09-08 10:57 | DS.PDOC ---
Discharge Summary General Date of Admission September 06, 2018 at 05:11 Date of Discharge September 08, 2018 Attending Physician: Divina Iverson MD Discharge Summary PROCEDURES PERFORMED DURING STAY: repeat low transverse section ADMITTING DIAGNOSES: History of prior section, term SIUP, intra-hepatic cholestasis of , factor V Leiden heterozygous, obesity DISCHARGE DIAGNOSES: History of prior section, term SIUP, intra-hepatic cholestasis of , factor V Leiden heterozygous, obesity COMPLICATIONS/CHIEF COMPLAINT: History Of Prior Section, IHCP HISTORY OF PRESENT ILLNESS/HOSPITAL COURSE: Chay is a 33yo [id number] s/p uncomplicated scheduled RLTCS on 09/06 for hx of prior and IHCP, doing well post-op/ day # 2. She had a benign post-op/ course. At time of discharge, vitals were within normal limits, afebrile, hemodynamically stable with no evidence of infection. DISCHARGE MEDICATIONS: Please see below. ALLERGIES: Please see below. PHYSICAL EXAMINATION ON DISCHARGE: VITAL SIGNS: Within normal limits, afebrile. Alert and oriented times three. Abdomen: Fundus firm at U-2. Soft, appropriately tender to palpation. Pfannensteil incision is covered by Provena wound vac, good seal all around and no strikethrough noted, wound vac functioning Extremities: no edema of BLE, no pain with palpation of calves LABORATORY DATA: pre-op H/H: 12.4/36.2 post-op H/H: 11.2/34.1 DIET: regular DISPOSITION: home DISCHARGE PLAN/INSTRUCTIONS: 1. Discharge to home today. 2. Has home meds: lovenox, percocet, motrin, colace. Will continue lovenox for 6 weeks. 3. follow-up visit scheduled in [address] Rosario in clinic 4. Discussed return precautions at length: fevers/chills, increasing abdominal pain, evidence of wound infection, foul smelling vaginal discharge, very heavy vaginal bleeding, breast redness/pain, persistent low mood or anything else that is concerning 5. vaginal rest for 6 weeks and no heavy lifting 6. Ok to shower, don't let shower water directly hit wound vac, if edges start to peel up place new tegaderm to maintain seal, remove in 1 week as previously discussed with Dr. Rosario DISCHARGE CONDITION: Stable TIME SPENT ON DISCHARGE: Greater than [address] Divina Iverson MD Vital Signs/I&Os Vital Signs Date Time Temp Pulse Resp B/P (MAP) Pulse Ox O2 Delivery O2 Flow Rate FiO2 09/08/18 06:15 16 09/08/18 05:49 96.9 84 98/58 (71) 97 I&O- Last 24 Hours up to 6 AM 09/08/18 06:00 Output Total 650 ml Balance -650 ml Discharge Medications Scheduled Cyclobenzaprine HCl (Cyclobenzaprine HCl) 10 Mg Tablet, 10 MG PO QPM for muscle spasms, (Reported) Docusate Sodium (Colace) 100 Mg Cap, 100 MG PO DAILY, (Reported) Docusate Sodium (Colace) 100 Mg Capsule, 100 MG PO BID Enoxaparin Sodium (Lovenox) 40 Mg/0.4 Ml Syringe, 40 MG SC DAILY@1700 Ibuprofen (Ibuprofen) 800 Mg Tablet, 800 MG PO Q8H Magnesium Oxide (Magnesium Oxide) 241.3 Mg Tab, 1 TAB PO BID for constipation, (Reported) Emr738/Iron Fum/Folic/Docusate ( 19 Tablet) 1 Tab Tab, 1 TAB PO DAILY, (Reported) Sennosides (Senokot) 8.6 Mg Tablet, 1 TAB PO QHS, (Reported) Scheduled PRN Oxycodone/Acetaminophen (Oxycodone-Acetaminophen 5-325) 1 Each Tablet, 1 TAB PO Q4HP PRN for MILD PAIN (PS 1-4) Allergies Coded Allergies: fluconazole (Verified Allergy, Intermediate, LIP SWELLING, 08/23/18) levofloxacin (Verified Allergy, Intermediate, HIVES, 08/23/18) Divina Iverson MD September 08, 2018 10:57
== END 2018-09-08 12:10 | disposition home or self-care (01) | DRG 771 ==
LOC: M LDI 05:11 → M OBS 11:05
PROVIDERS: ADMIT Obstetrics & Gynecology; ATTEND Obstetrics & Gynecology
PROC: 10D00Z1 Extraction of Products of Conception, Low, Open Approach (ICD-10-PCS; principal; 2018-09-06 07:30)
DX: O34.211 Maternal care for low transverse scar from previous cesarean delivery (principal); K83.1 Obstruction of bile duct; O26.62 Liver and biliary tract disorders in childbirth; D68.2 Hereditary deficiency of other clotting factors; O99.12 Other diseases of the blood and blood-forming organs and certain disorders involving the immune mechanism complicating childbirth; Z37.0 Single live birth; Z3A.39 39 weeks gestation of pregnancy; E66.9 Obesity, unspecified; O99.214 Obesity complicating childbirth; O09.523 Supervision of elderly multigravida, third trimester; Z79.899 Other long term (current) drug therapy; Z88.8 Allergy status to other drugs, medicaments and biological substances

== ENCOUNTER 2018-09-18 10:16 | Emergency (ER) | payer OTHER ==
[~2018-09-18] VITALS: Ht 157.5 cm; Wt 95.0 kg
[~2018-09-18 10:16] MED LIST changes: +IBUP80TA PO; +PERCOCET PO
[2018-09-18 11:43] LABS: HEMATOCRIT 38.4 % (36.0-47.0); HEMOGLOBIN 12.7 g/dl (12.0-15.5); MEAN CORPUSCULAR HEMOGLOBIN 28.8 pg (27.0-33.0); MEAN CORPUSCULAR HGB CONC 33.1 g/dl (32.0-36.5); MEAN CORPUSCULAR VOLUME 87.1 fl (80.0-96.0); PLATELET COUNT, AUTOMATED 339 10^3/uL (150-450); RED BLOOD COUNT 4.41 10^6/uL (4.00-5.40)
[2018-09-18] MEDS ORDERED: ACETAMINOPHEN TAB 650MG DOSE (2X325MG) PO ONE (12:15)
--- NOTE | 2018-09-18 12:25 | REP ---
PELVIC SONOGRAPHY: HISTORY: Vaginal bleeding since . September 06, 2018. FINDINGS: Transabdominal and transvaginal scanning are performed. Uterine dimensions are 12.0 x 7.9 x 9.4 cm. Endometrial echo is 4.6 cm in thickness. There is hypoechoic fluid consistent with blood in the endometrium. There are echogenic foci consistent with post suturing in the anterior myometrium of the lower uterine segment. On transabdominal imaging, there is a trace of subcutaneous fluid, again consistent with postoperative changes. The right ovary could not be seen either transabdominally or transvaginally. There is no evidence of right adnexal mass or cyst. The left ovary is normal measuring 2.6 x 1.9 x 2.2 cm. IMPRESSION: Enlarged uterus. Hypoechoic fluid consistent with blood distending the endometrium. No sonographic evidence to suggest retained products of conception. Post changes. Electronically Signed by Patrick Longoria MD 09/18/2018 12:41 P
[2018-09-18 13:34] VITALS: BP 107/64
--- NOTE | 2018-09-18 16:59 | ED PDOC ---
Post-Departure Follow-Up ft darnell bey faxed formal report of pelvic us for fu Brionna Warren MD September 18, 2018 16:59
== END 2018-09-18 13:51 | disposition home or self-care (01) ==
LOC: M ED 10:16
DX: N93.9 Abnormal uterine and vaginal bleeding, unspecified (principal); R10.30 Lower abdominal pain, unspecified; D68.59 Other primary thrombophilia; E28.2 Polycystic ovarian syndrome; K80.20 Calculus of gallbladder without cholecystitis without obstruction; Z87.440 Personal history of urinary (tract) infections; Z98.84 Bariatric surgery status; Z79.899 Other long term (current) drug therapy; Z88.8 Allergy status to other drugs, medicaments and biological substances

== ENCOUNTER 2018-09-30 16:05 | Inpatient (IN) | payer OTHER ==
[~2018-09-30] VITALS: Ht 157.5 cm; Wt 94.5 kg
[2018-09-30] MEDS ORDERED: NS 1,000 ML IV ONE (17:45)
[2018-09-30 19:33] LABS: BASO % 0.7 % (0.0-1.0); EOS # 0.1 10^3/uL (0.0-0.50); HEMATOCRIT 43.6 % (36.0-47.0); HEMOGLOBIN 14.5 g/dl (12.0-15.5); LYMPH # 1.1 10^3/uL (1.5-4.5); LYMPH % 20.9 % (24.0-44.0); MEAN CORPUSCULAR HEMOGLOBIN 29.9 pg (27.0-33.0); MEAN CORPUSCULAR HGB CONC 33.3 g/dl (32.0-36.5); MEAN CORPUSCULAR VOLUME 89.9 fl (80.0-96.0); MONO # 0.3 10^3/uL (0.0-0.8); MONO % 5.3 % (0.0-5.0); NEUTROPHILS # 3.9 10^3/uL (1.8-7.7); NEUTROPHILS % 70.9 % (36.0-66.0); PLATELET COUNT, AUTOMATED 277 10^3/uL (150-450); RED BLOOD COUNT 4.85 10^6/uL (4.00-5.40); WHITE BLOOD COUNT 5.5 10^3/uL (4.0-10.0)
[2018-09-30 19:47] LABS: ALBUMIN 4.4 GM/DL (3.2-5.2); ALT/SGPT 792 U/L (12-78); BILIRUBIN,DIRECT 5.4 MG/DL (0.0-0.2); BILIRUBIN,TOTAL 5.8 MG/DL (0.2-1.0); BLOOD UREA NITROGEN 8 MG/DL (7-18); CALCIUM LEVEL 9.5 MG/DL (8.5-10.1); CARBON DIOXIDE LEVEL 23 MEQ/L (21-32); CHLORIDE LEVEL 108 MEQ/L (98-107); CREATININE FOR GFR 0.71 MG/DL (0.55-1.30); GLOMERULAR FILTRATION RATE > 60.0 (>60); GLUCOSE, FASTING 67 MG/DL (70-100); LIPASE 141 U/L (73-393); POTASSIUM SERUM 3.8 MEQ/L (3.5-5.1); SODIUM LEVEL 142 MEQ/L (136-145); TOTAL PROTEIN 7.6 GM/DL (6.4-8.2)
[2018-09-30 19:56] LABS: INR 0.96; PROTHROMBIN TIME 12.9 SECONDS (12.1-14.4)
[2018-09-30 19:57] LABS: PARTIAL THROMBOPLASTIN TIME 29.7 SECONDS (25.4-37.6)
[2018-09-30 19:59] LABS: D-DIMER QUANT 1151.99 ng/ml (<500)
[2018-09-30] MEDS ORDERED: ONDANSETRON 4MG/2ML VIAL (J2405) IV ONE (20:30)
[2018-09-30] MEDS ORDERED: ISOVUE-370 76% 100ML VIAL (Q9967) As Ordered ONE (20:36)
[2018-09-30] MEDS ORDERED: MORPHINE 4 MG/ML 1ML VIAL/SYRINGE (J2270) IV ONE ×2 (21:00→23:15)
--- NOTE | 2018-09-30 22:06 | REPVR ---
EXAM: CT Angiography Chest With Contrast EXAM DATE/TIME: 09/30/2018 8:50 PM CLINICAL HISTORY: 33 years old, female; Chest pain; Additional info: Factor 5 leiden d/o, elevated dimer, pleuritic cp TECHNIQUE: Imaging protocol: Axial computed tomographic angiography images of the chest with intravenous contrast using CT angiography protocol. Coronal and sagittal reformatted images were created and reviewed. 3D rendering: MIP reconstructed images were created and reviewed. Radiation optimization: All CT scans at this facility use at least one of these dose optimization techniques: automated exposure control; mA and/or kV adjustment per patient size (includes targeted exams where dose is matched to clinical indication); or iterative reconstruction. Contrast material: ISOVUE 370; Contrast volume: 100 ml; Contrast route: IV; COMPARISON: No relevant prior studies available. FINDINGS: Pulmonary arteries: There are no pulmonary emboli. Aorta: There is no aortic dissection or aneurysm. Lungs: Unremarkable. No consolidation. No masses. Pleural space: Unremarkable. No pneumothorax. No pleural effusion. Heart: Unremarkable. No cardiomegaly. No pericardial effusion. Gallbladder and bile ducts: Cholecystectomy. Lymph nodes: Unremarkable. No enlarged lymph nodes. Bones/joints: Unremarkable. No acute fracture. Soft tissues: Unremarkable. IMPRESSION: 1. There are no pulmonary emboli. 2. There is no aortic dissection or aneurysm. Electronically signed by: Norman Sweet On 09/30/2018 22:06:40 PM
--- NOTE | 2018-09-30 22:14 | REPVR ---
EXAM: CT Abdomen and Pelvis With Contrast EXAM DATE/TIME: 09/30/2018 8:50 PM CLINICAL HISTORY: 33 years old, female; Abdominal pain; Generalized; Prior surgery; Surgery date: <1 month; Surgery type: Csec; Additional info: Diffuse abd pain, elevated lfts TECHNIQUE: Imaging protocol: Axial computed tomography images of the abdomen and pelvis with intravenous contrast. Coronal and sagittal reformatted images were created and reviewed. Radiation optimization: All CT scans at this facility use at least one of these dose optimization techniques: automated exposure control; mA and/or kV adjustment per patient size (includes targeted exams where dose is matched to clinical indication); or iterative reconstruction. Contrast material: ISOVUE 370; Contrast volume: 100 ml; Contrast route: IV; COMPARISON: CT ABD/PEL W/IV ORAL CONTRAS 04/18/2017 1:10 PM FINDINGS: ABDOMEN: Liver: There is a diffuse decrease in hepatic parenchymal density, consistent with fatty infiltration. Gallbladder and bile ducts: There has been a cholecystectomy. Pancreas: Normal. No ductal dilation. Spleen: Normal. No splenomegaly. Adrenals: There is a focal hypodense mass in the left adrenal gland measures 1.2 x 1.1 cm, consistent in appearance and density with a benign adrenal adenoma. Kidneys and ureters: There is an 8 mm. obstructive ureteral calculus located in the proximal left ureter resulting in mild to moderate proximal hydroureteronephrosis. There is no periureteral and perinephric stranding. No urinoma demonstrated. Stomach and bowel: This patient is status post gastric bypass surgery. There is increased feces throughout the colon consistent with constipation. Appendix: No evidence of appendicitis. PELVIS: Bladder: Unremarkable as visualized. Reproductive: Deformity anterior inferior aspect of the uterus consistent with prior section. ABDOMEN and PELVIS: Intraperitoneal space: Normal. No free air. No significant fluid collection. Bones/joints: Disc osteophyte complexes resulting in a severe central spinal stenosis at L4-5 and a mild central spinal stenosis at L5-S1. Soft tissues: Disc-shaped anterior abdominal wall hematoma/seroma measures 7.4 x 1.1 x 5.4 cm consistent with recent surgery. Vasculature: Normal. No abdominal aortic aneurysm. Lymph nodes: Normal. No enlarged lymph nodes. IMPRESSION: 1. Disc-shaped anterior abdominal wall hematoma/seroma measures 7.4 x 1.1 x 5.4 cm consistent with recent surgery. 2. There is a diffuse decrease in hepatic parenchymal density, consistent with fatty infiltration. 3. There has been a cholecystectomy. 4. This patient is status post gastric bypass surgery and section. 5. There is an 8 mm. obstructive ureteral calculus located in the proximal left ureter resulting in mild to moderate proximal hydroureteronephrosis. There is no periureteral and perinephric stranding. No urinoma demonstrated. 6. There is increased feces throughout the colon consistent with constipation. Electronically signed by: Norman Sweet On 09/30/2018 22:14:24 PM
[2018-10-01] VITALS (11 sets, daily range): BP systolic 109–159; BP diastolic 64–87
[2018-10-01] MEDS ORDERED: CYCL10TA PO (00:25)
[2018-10-01] MEDS ORDERED: FLUTISP (00:25)
[2018-10-01] MEDS ORDERED: VITA-144 PO (00:25)
[2018-10-01] MEDS ORDERED: MAGN1TAB26 PO (00:25)
[2018-10-01] MEDS ORDERED: CETI10TA8 PO (00:25)
[2018-10-01] MEDS ORDERED: IBUP1TAB7 PO (00:25)
[2018-10-01] MEDS ORDERED: ENOX40IN3 SC (00:25)
[2018-10-01] MEDS ORDERED: ALIG4CAP PO (00:25)
[2018-10-01] MEDS ORDERED: NS 1,000 ML IV SCH ×2 (01:15→08:06)
[2018-10-01] MEDS ORDERED: MORPHINE 4 MG/ML 1ML VIAL/SYRINGE (J2270) IV PRN (01:15)
[2018-10-01] MEDS ORDERED: ONDANSETRON 4MG/2ML VIAL (J2405) IV PRN ×2 (01:15→08:15)
[2018-10-01] MEDS ORDERED: diphenhydrAMINE INJ 50MG/ML VIAL (J1200) IV ONE (01:15)
[2018-10-01] MEDS ORDERED: ENOXAPARIN 40 MG/0.4 ML SYRINGE (J1650) SC ONE (01:30)
--- NOTE | 2018-10-01 03:00 | HPEPDOC ---
[facility] Medical History & Physical Date of Admission Oct 01, 2018 Date of Service: Oct 01, 2018 History and Physical CHIEF COMPLAINT: Abdominal pain HISTORY OF PRESENT ILLNESS: Patient is 33-year-old female with past medical history of factor V Leyden deficiency on Lovenox and PCO S presented to ER with complaints of abdominal pain and L. flank pain for the past [address] scan in ER found an 8mm obstructive L. ureteral calculus with mild to moderate hydroureteronephrosis. Patient also reports nausea and chills but otherwise denies any other complaints. PAST MEDICAL HISTORY: Refer to [facility] PAST SURGICAL HISTORY: Gastric sleeve Cholecystectomy Tonsillectomy Carpal tunnel surgery SOCIAL HISTORY: Denies tobacco, alcohol or illicit drug use. FAMILY HISTORY: Hypertension, hyperlipidemia, and diabetes mellitus in parents ALLERGIES: Please see below. REVIEW OF SYSTEMS: 10 point review of system negative except as stated in [facility] HOME MEDICATIONS: Please see below. PHYSICAL EXAMINATION: General: No acute distress, Alert Eyes: Normal sclera, EOMI, JENNIFER HENT: Atraumatic, neck supple, moist mucous membranes Cardiovascular: Normal rate, normal rhythm. No murmurs appreciated. Pulmonary: Clear to auscultation b/l, no wheezing GI: Soft, mild tenderness epigastric and R. back tenderness, nondistended Skin: Warm and dry Neuro: CN grossly intact. No focal deficits. Strengths equal b/l. Psych: oriented x 3 LABORATORY DATA: See below. IMAGING: CT Chest Angio- IMPRESSION: 1. There are no pulmonary emboli. 2. There is no aortic dissection or aneurysm. CT abdomen/pelvis w/contrast- IMPRESSION: 1. Disc-shaped anterior abdominal wall hematoma/seroma measures 7.4 x 1.1 x 5.4 cm consistent with recent surgery. 2. There is a diffuse decrease in hepatic parenchymal density, consistent with fatty infiltration. 3. There has been a cholecystectomy. 4. This patient is status post gastric bypass surgery and section. 5. There is an 8 mm. obstructive ureteral calculus located in the proximal left ureter resulting in mild to moderate proximal hydroureteronephrosis. There is no periureteral and perinephric stranding. No urinoma demonstrated. 6. There is increased feces throughout the colon consistent with constipation. MICROBIOLOGY: Please see below. ASSESSMENT AND PLAN: 1. L. nephrolithiasis - IVF support and pain control. - Urology consult. - Keep NPO for now incase patient needs urological surgical intervention. - Zofran for nausea 2. Factor V leiden deficiency - c/w Lovenox tomorrow night, home medication daily. - follows as outpatient. DVT ppx: lovenox and SCD Code status: Full code Vital Signs Vital Signs Date Time Temp Pulse Resp B/P (MAP) Pulse Ox O2 Delivery O2 Flow Rate FiO2 10/01/18 02:30 97.6 76 18 125/74 (91) 99 10/01/18 02:04 Room Air Laboratory Data Labs 24H Laboratory Tests 2 09/30/18 19:02: Urine Color BRIAN, Urine Appearance CLEAR, Urine pH 5.0, Urine Specific [place] 1.009, Urine Protein NEGATIVE, Urine Glucose (UA) NEGATIVE, Urine Ketones 1+H, Urine Blood 2+H, Urine Nitrite NEGATIVE, Urine Bilirubin 1+H, Urine Urobilinogen 2.0H, Urine Leukocyte Esterase NEGATIVE, Urine WBC (Auto) 6H, Urine RBC (Auto) 54H, Urine Hyaline Casts (Auto) 0, Urine Bacteria (Auto) NEGATIVE, Urine Squamous Epithelial Cells 0, Urine Mucus (Auto) SMALL, Urine Sperm (Auto) 09/30/18 19:16: Immature Granulocyte % (Auto) 0.2, White Blood Count 5.5, Red Blood Count 4.85, Hemoglobin 14.5, Hematocrit 43.6, Mean Corpuscular Volume 89.9, Mean Corpuscular Hemoglobin 29.9, Mean Corpuscular Hemoglobin Concent 33.3, Red Cell Distribution Width 13.6, Platelet Count 277, Neutrophils (%) (Auto) 70.9H, Lymphocytes (%) (Auto) 20.9L, Monocytes (%) (Auto) 5.3H, Eosinophils (%) (Auto) 2.0, Basophils (%) (Auto) 0.7, Neutrophils # (Auto) 3.9, Lymphocytes # (Auto) 1.1L, Monocytes # (Auto) 0.3, Eosinophils # (Auto) 0.1, Basophils # (Auto) 0.0, Nucleated Red Blood Cells % (auto) 0.0, Prothrombin Time 12.9, Prothromb Time International Ratio 0.96, Activated Partial Thromboplast Time 29.7, D-Dimer, Quantitative 1151.99H 09/30/18 19:17: Anion Gap 11, Glomerular Filtration Rate > 60.0, Calcium Level 9.5, Aspartate Amino Transf (AST/SGOT) 337H, Alanine Aminotransferase (ALT/SGPT) 792H, Alkaline Phosphatase 339H, Total Bilirubin 5.8H, Direct Bilirubin 5.4H, Total Protein 7.6, Albumin 4.4, Albumin/Globulin Ratio 1.38, Lipase 141 CBC/BMP Laboratory Tests 09/30/18 19:16 Red Blood Count 4.85, Mean Corpuscular Volume 89.9, Mean Corpuscular Hemoglobin 29.9, Mean Corpuscular Hemoglobin Concent 33.3, Red Cell Distribution Width 13.6, Neutrophils (%) (Auto) 70.9 H, Lymphocytes (%) (Auto) 20.9 L, Monocytes (%) (Auto) 5.3 H, Eosinophils (%) (Auto) 2.0, Basophils (%) (Auto) 0.7, Neutrophils # (Auto) 3.9, Lymphocytes # (Auto) 1.1 L, Monocytes # (Auto) 0.3, Eosinophils # (Auto) 0.1, Basophils # (Auto) 0.0 09/30/18 19:17 Home Medications Scheduled Bifidobacterium Infantis (Align) 4 Mg Capsule, 4 MG PO DAILY Cetirizine HCl (Cetirizine HCl) 10 Mg Tablet, 10 MG PO DAILY Cholecalciferol (Vitamin D3) (Vitamin D3) 1,000 Unit Tablet, 1,000 UNIT PO DAILY Docusate Sodium (Colace) 100 Mg Cap, 100 MG PO BID Enoxaparin Sodium (Enoxaparin Sodium) 40 Mg/0.4 Ml Syringe, 40 MG SC QHS Magnesium Oxide (Magnesium Oxide) 400 Mg Tablet, 400 MG PO BID [id number]/Iron Fum/Folic/Docusate ( 19 Tablet) 1 Tab Tab, 1 TAB PO QHS Scheduled PRN Cyclobenzaprine HCl (Cyclobenzaprine HCl) 10 Mg Tablet, 10 MG PO TID PRN for MUSCLE SPASMS Fluticasone Propionate (Fluticasone Propionate) 16 Gm [place].susp, 1 SPRAY NA BID PRN for NASAL CONGESTION Ibuprofen (Ibuprofen) 800 Mg Tablet, 800 MG PO TID PRN for PAIN Allergies Coded Allergies: fluconazole (Verified Allergy, Intermediate, LIP SWELLING, 08/23/18) levofloxacin (Verified Allergy, Intermediate, HIVES, 08/23/18) A-FIB/CHADSVASC A-FIB History Current/History of A-Fib/PAF?: No EMERALD WILSON MD Oct 01, 2018 03:00
[2018-10-01 07:01] LABS: BLOOD UREA NITROGEN 6 MG/DL (7-18); CALCIUM LEVEL 8.1 MG/DL (8.5-10.1); CARBON DIOXIDE LEVEL 17 MEQ/L (21-32); CHLORIDE LEVEL 113 MEQ/L (98-107); CREATININE FOR GFR 0.61 MG/DL (0.55-1.30); GLOMERULAR FILTRATION RATE > 60.0 (>60); GLUCOSE, FASTING 52 MG/DL (70-100); POTASSIUM SERUM 3.8 MEQ/L (3.5-5.1); SODIUM LEVEL 142 MEQ/L (136-145)
[2018-10-01] MEDS ORDERED: PERCOCET 5MG/325MG TAB PO PRN (08:00)
[2018-10-01] MEDS ORDERED: MOM 30ML SUSPENSION UDC PO PRN (08:00)
[2018-10-01] MEDS ORDERED: diphenhydrAMINE 25 MG CAP PO ONE (08:00)
[2018-10-01] MEDS ORDERED: SENOKOT S TAB PO PRN (08:00)
--- NOTE | 2018-10-01 08:10 | IPNPDOC ---
Date Seen The patient was seen on 10/01/18. Progress Note SUBJECTIVE: c/o some nausea without vomiting. c/o dark colored urine with no dysuria urgency, but c/o 7/10 flank pain on the right worse w movement better with resting and not moving. no fever or chills. c/o pruritus without sob, angioedema or rash when using morphine. per urology, no ice chips. npo with ivfluids. plans for cystoscopy and stone extraction. OBJECTIVE: PHYSICAL EXAMINATION: VITALS: PLS SEE BELOW General: No acute distress, Alert Eyes: Normal sclera, EOMI, JENNIFER HENT: Atraumatic, neck supple, moist mucous membranes Cardiovascular: Normal rate, normal rhythm. No murmurs appreciated. Pulmonary: Clear to auscultation b/l, no wheezing GI: Soft, mild tenderness epigastric and R. back tenderness, nondistended Skin: Warm and dry Neuro: CN grossly intact. No focal deficits. Strengths equal b/l. Psych: oriented x 3 lABORATORY DATA, IMAGING STUDIES, MICROBIOLOGY: Please see below. IMAGING: CT Chest Angio- IMPRESSION: 1. There are no pulmonary emboli. 2. There is no aortic dissection or aneurysm. CT abdomen/pelvis w/contrast- IMPRESSION: 1. Disc-shaped anterior abdominal wall hematoma/seroma measures 7.4 x 1.1 x 5.4 cm consistent with recent surgery. 2. There is a diffuse decrease in hepatic parenchymal density, consistent with fatty infiltration. 3. There has been a cholecystectomy. 4. This patient is status post gastric bypass surgery and section. 5. There is an 8 mm. obstructive ureteral calculus located in the proximal left ureter resulting in mild to moderate proximal hydroureteronephrosis. There is no periureteral and perinephric stranding. No urinoma demonstrated. 6. There is increased feces throughout the colon consistent with constipation. ASSESSMENT AND PLAN: Patient is 33-year-old female with past medical history of factor V Leyden deficiency on Lovenox and PCO S presented to ER with complaints of abdominal pain and L. flank pain for the past [address] scan in ER found an 8mm obstructive L. ureteral calculus with mild to moderate hydroureteronephrosis. Patient also reports nausea and chills but otherwise denies any other complaints. 1. L. nephrolithiasis - IVF support and pain control. - Urology consulted. no ice chipos - Keep NPO for now incase patient needs urological surgical intervention. 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 no empiric abx. 2. Factor V leiden deficiency - c/w Lovenox tomorrow night, home medication daily. - follows as outpatient. 3. Obesity BMI 38.1 LAKISHA protocol 4. Fatty liver with abnormal LFTs hepatitis serology pending check lipid profile if c/o ruq pain, consider liver us 5. adrenal adenoma outpt fu. DVT ppx: lovenox and SCD Code status: Full code VS, I&O, 24H, Fishbone Vital Signs/I&O Vital Signs Date Time Temp Pulse Resp B/P (MAP) Pulse Ox O2 Delivery O2 Flow Rate FiO2 10/01/18 03:22 16 10/01/18 02:30 97.6 76 125/74 (91) 99 10/01/18 02:04 Room Air I&O- Last 24 Hours up to 6 AM 10/01/18 06:00 Intake Total 50 ml Balance 50 ml Laboratory Data 24H LABS Laboratory Tests 2 09/30/18 19:02: Urine Color BRIAN, Urine Appearance CLEAR, Urine pH 5.0, Urine Specific [place] 1.009, Urine Protein NEGATIVE, Urine Glucose (UA) NEGATIVE, Urine Ketones 1+H, Urine Blood 2+H, Urine Nitrite NEGATIVE, Urine Bilirubin 1+H, Urine Urobilinogen 2.0H, Urine Leukocyte Esterase NEGATIVE, Urine WBC (Auto) 6H, Urine RBC (Auto) 54H, Urine Hyaline Casts (Auto) 0, Urine Bacteria (Auto) NEGATIVE, Urine Squamous Epithelial Cells 0, Urine Mucus (Auto) SMALL, Urine Sperm (Auto) 09/30/18 19:16: Immature Granulocyte % (Auto) 0.2, White Blood Count 5.5, Red Blood Count 4.85, Hemoglobin 14.5, Hematocrit 43.6, Mean Corpuscular Volume 89.9, Mean Corpuscular Hemoglobin 29.9, Mean Corpuscular Hemoglobin Concent 33.3, Red Cell Distribution Width 13.6, Platelet Count 277, Neutrophils (%) (Auto) 70.9H, Lymphocytes (%) (Auto) 20.9L, Monocytes (%) (Auto) 5.3H, Eosinophils (%) (Auto) 2.0, Basophils (%) (Auto) 0.7, Neutrophils # (Auto) 3.9, Lymphocytes # (Auto) 1.1L, Monocytes # (Auto) 0.3, Eosinophils # (Auto) 0.1, Basophils # (Auto) 0.0, Nucleated Red Blood Cells % (auto) 0.0, Prothrombin Time 12.9, Prothromb Time International Ratio 0.96, Activated Partial Thromboplast Time 29.7, D-Dimer, Quantitative 1151.99H 09/30/18 19:17: Anion Gap 11, Glomerular Filtration Rate > 60.0, Calcium Level 9.5, Aspartate Amino Transf (AST/SGOT) 337H, Alanine Aminotransferase (ALT/SGPT) 792H, Alkaline Phosphatase 339H, Total Bilirubin 5.8H, Direct Bilirubin 5.4H, Total Protein 7.6, Albumin 4.4, Albumin/Globulin Ratio 1.38, Lipase 141 10/01/18 06:08: Anion Gap 12, Glomerular Filtration Rate > 60.0, Calcium Level 8.1L, Blood Urea Nitrogen 6L, Creatinine 0.61, Sodium Level 142, Potassium Level 3.8, Chloride Level 113H, Carbon Dioxide Level 17L CBC/BMP Laboratory Tests 09/30/18 19:16 Red Blood Count 4.85, Mean Corpuscular Volume 89.9, Mean Corpuscular Hemoglobin 29.9, Mean Corpuscular Hemoglobin Concent 33.3, Red Cell Distribution Width 13.6, Neutrophils (%) (Auto) 70.9 H, Lymphocytes (%) (Auto) 20.9 L, Monocytes (% ) (Auto) 5.3 H, Eosinophils (%) (Auto) 2.0, Basophils (%) (Auto) 0.7, Neutrophils # (Auto) 3.9, Lymphocytes # (Auto) 1.1 L, Monocytes # (Auto) 0.3, Eosinophils # (Auto) 0.1, Basophils # (Auto) 0.0 09/30/18 19:17 10/01/18 06:08 Calcium Level 8.1 L MARY RAMIREZ MD Oct 01, 2018 07:35
--- NOTE | 2018-10-01 08:12 | ECGEPIP ---
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
[2018-10-01] MEDS ORDERED: NALBUPHINE HCL 10 MG/ML AMP (J2300) IV PRN (08:15)
[2018-10-01] MEDS ORDERED: EPIDURAL/PCA KEYS XX PRN (08:15)
[2018-10-01] MEDS ORDERED: NS 1,000 ML IV ONE (08:15)
[2018-10-01] MEDS ORDERED: MORPHINE 1MG/ML IN 0.9% NACL 100ML IV BAG IV PRN (08:15)
[2018-10-01] MEDS ORDERED: NALOXONE INJ 0.4 MG/1 ML VIAL (J2310) IV PRN ×2 (08:15→09:00)
[2018-10-01] MEDS ORDERED: diphenhydrAMINE INJ 50MG/ML VIAL (J1200) IV PRN (08:15)
[2018-10-01 08:20] LABS: CHOLESTEROL LEVEL 229 MG/DL (<200); HDL CHOLESTEROL 20 MG/DL (>40); LDL CHOLESTEROL 151 MG/DL (<100); NON-HDL-C 209 MG/DL; TRIGLYCERIDES LEVEL 291 MG/DL (<150)
--- NOTE | 2018-10-01 08:39 | CR.PDOC ---
General Date of Consultation: Oct 01, 2018 Consultation REASON FOR CONSULTATION/CHIEF COMPLAINT: left proximal ureteral calculus, 8 mm HISTORY OF PRESENT ILLNESS: 33 year old female with left flank pain for 4 days, CT revealed 8 mm left proximal ureteral calculus. She is 3 weeks post . She is on lovenox for Factor 5 Leiden deficiency. She has undergone prior gastric sleeve surgery. She has a history of reflux and UTIs as a child. She has undergone no prior urologic surgery. She has had no fever. The patient is made aware of options available for management and requests that the calculus be removed. I explained carrying out left ureteroscopy with laser fragmentation and extraction of left ureteral calculus with placement of left internal ureteral calculus. ALLERGIES: Please see below. HOME MEDICATIONS: Please see below. PAST MEDICAL HISTORY: 1. Gastric by pass 2. Factor 5 Leiden deficiency on Lovenoz 3. three weeks post PAST SURGICAL HISTORY: 1. Gastric sleeve FAMILY HISTORY: none SOCIAL HISTORY: Marital status and/or living arrangements: with children Tobacco use:no ETOH: no Illicit drug use:no IV drug use: no REVIEW OF SYSTEMS: negative except as noted above PHYSICAL EXAMINATION: VITAL SIGNS: Please see below. GENERAL APPEARANCE: well developed female in bed in no distress HEENT: normal RESPIRATORY: unlabored breathing CARDIOVASCULAR: RRR ABDOMEN: left CVA tendernes EXTREMITIES: normal NEUROLOGICAL: normal PSYCHIATRIC: intact LABORATORY DATA: Please see below. ASSESSMENT/PLAN: 1. 8 mm left proximal ureteral calculus, will arrange surgery to remove via ureteroscopy 2. Factor 5 Leiden deficiency 3 three weeks post Goldie Watkins MD Vital Signs/I&O Vital Signs Date Time Temp Pulse Resp B/P (MAP) Pulse Ox O2 Delivery O2 Flow Rate FiO2 10/01/18 03:22 16 10/01/18 02:30 97.6 76 125/74 (91) 99 10/01/18 02:04 Room Air I&O- Last 24 Hours up to 6 AM 10/01/18 05:59 Intake Total 50 ml Balance 50 ml Laboratory Data Labs 24H Laboratory Tests 2 09/30/18 19:02: Urine Color BRIAN, Urine Appearance CLEAR, Urine pH 5.0, Urine Specific [place] 1.009, Urine Protein NEGATIVE, Urine Glucose (UA) NEGATIVE, Urine Ketones 1+H, Urine Blood 2+H, Urine Nitrite NEGATIVE, Urine Bilirubin 1+H, Urine Urobilinogen 2.0H, Urine Leukocyte Esterase NEGATIVE, Urine WBC (Auto) 6H, Urine RBC (Auto) 54H, Urine Hyaline Casts (Auto) 0, Urine Bacteria (Auto) NEGATIVE, Urine Squamous Epithelial Cells 0, Urine Mucus (Auto) SMALL, Urine Sperm (Auto) 09/30/18 19:16: Immature Granulocyte % (Auto) 0.2, White Blood Count 5.5, Red Blood Count 4.85, Hemoglobin 14.5, Hematocrit 43.6, Mean Corpuscular Volume 89.9, Mean Corpuscular Hemoglobin 29.9, Mean Corpuscular Hemoglobin Concent 33.3, Red Cell Distribution Width 13.6, Platelet Count 277, Neutrophils (%) (Auto) 70.9H, Lymphocytes (%) (Auto) 20.9L, Monocytes (%) (Auto) 5.3H, Eosinophils (%) (Auto) 2.0, Basophils (%) (Auto) 0.7, Neutrophils # (Auto) 3.9, Lymphocytes # (Auto) 1.1L, Monocytes # (Auto) 0.3, Eosinophils # (Auto) 0.1, Basophils # (Auto) 0.0, Nucleated Red Blood Cells % (auto) 0.0, Prothrombin Time 12.9, Prothromb Time International Ratio 0.96, Activated Partial Thromboplast Time 29.7, D-Dimer, Quantitative 1151.99H 09/30/18 19:17: Anion Gap 11, Glomerular Filtration Rate > 60.0, Calcium Level 9.5, Aspartate Amino Transf (AST/SGOT) 337H, Alanine Aminotransferase (ALT/SGPT) 792H, Alkaline Phosphatase 339H, Total Bilirubin 5.8H, Direct Bilirubin 5.4H, Total Protein 7.6, Albumin 4.4, Albumin/Globulin Ratio 1.38, Lipase 141 10/01/18 06:08: Anion Gap 12, Glomerular Filtration Rate > 60.0, Calcium Level 8.1L, Triglycerides Level 291H, LDL Cholesterol 151H, Total Cholesterol 229H, Non-HDL Cholesterol (LDL + VLDL) 209, Total HDL Cholesterol 20L, Cholesterol/HDL Ratio 11.450H CBC/BMP Laboratory Tests 09/30/18 19:16 Red Blood Count 4.85, Mean Corpuscular Volume 89.9, Mean Corpuscular Hemoglobin 29.9, Mean Corpuscular Hemoglobin Concent 33.3, Red Cell Distribution Width 1 3.6, Neutrophils (%) (Auto) 70.9 H, Lymphocytes (%) (Auto) 20.9 L, Monocytes (%) (Auto) 5.3 H, Eosinophils (%) (Auto) 2.0, Basophils (%) (Auto) 0.7, Neutrophils # (Auto) 3.9, Lymphocytes # (Auto) 1.1 L, Monocytes # (Auto) 0.3, Eosinophils # (Auto) 0.1, Basophils # (Auto) 0.0 09/30/18 19:17 10/01/18 06:08 Allergies Coded Allergies: fluconazole (Verified Allergy, Intermediate, LIP SWELLING, 08/23/18) levofloxacin (Verified Allergy, Intermediate, HIVES, 08/23/18) Home Medications Scheduled Bifidobacterium Infantis (Align) 4 Mg Capsule, 4 MG PO DAILY, (Reported) Cetirizine HCl (Cetirizine HCl) 10 Mg Tablet, 10 MG PO DAILY, (Reported) Cholecalciferol (Vitamin D3) (Vitamin D3) 1,000 Unit Tablet, 1,000 UNIT PO DAILY, (Reported) Docusate Sodium (Colace) 100 Mg Cap, 100 MG PO BID, (Reported) Enoxaparin Sodium (Enoxaparin Sodium) 40 Mg/0.4 Ml Syringe, 40 MG SC QHS, (Reported) Magnesium Oxide (Magnesium Oxide) 400 Mg Tablet, 400 MG PO BID, (Reported) Clx424/Iron Fum/Folic/Docusate ( 19 Tablet) 1 Tab Tab, 1 TAB PO QHS, (Reported) Scheduled PRN Cyclobenzaprine HCl (Cyclobenzaprine HCl) 10 Mg Tablet, 10 MG PO TID PRN for MUSCLE SPASMS, (Reported) Fluticasone Propionate (Fluticasone Propionate) 16 Gm [place].susp, 1 SPRAY NA BID PRN for NASAL CONGESTION, (Reported) Ibuprofen (Ibuprofen) 800 Mg Tablet, 800 MG PO TID PRN for PAIN, (Reported) KRYSTIAN WATKINS MD Oct 01, 2018 08:39
[2018-10-01] MEDS ORDERED: diphenhydrAMINE 25 MG CAP As Ordered ONE (09:11)
[2018-10-01] MEDS ORDERED: PERCOCET 5MG/325MG TAB As Ordered ONE (09:11)
[2018-10-01 09:12] LABS: HEMATOCRIT 37.2 % (36.0-47.0); MEAN CORPUSCULAR HGB CONC 31.7 g/dl (32.0-36.5); MEAN CORPUSCULAR VOLUME 91.4 fl (80.0-96.0); PLATELET COUNT, AUTOMATED 214 10^3/uL (150-450); RED BLOOD COUNT 4.07 10^6/uL (4.00-5.40); WHITE BLOOD COUNT 4.2 10^3/uL (4.0-10.0)
[2018-10-01 09:19] LABS: HEMOGLOBIN 11.8 g/dl (12.0-15.5)
[2018-10-01] MEDS: PERCOCET 5MG/325MG TAB PO PRN (09:31)
[2018-10-01] MEDS ORDERED: ONDANSETRON 4MG/2ML VIAL (J2405) As Ordered ONE ×2 (10:13→16:30)
[2018-10-01] MEDS: ONDANSETRON 4MG/2ML VIAL (J2405) IV PRN (10:19)
[2018-10-01] MEDS: MORPHINE 4 MG/ML 1ML VIAL/SYRINGE (J2270) IV PRN ×4 (10:19→23:42)
[2018-10-01] MEDS ORDERED: diphenhydrAMINE 25 MG CAP PO PRN (12:00)
[2018-10-01] MEDS ORDERED: KCL 10MEQ IN D5/0.45NS 1000ML 1,000 ML IV SCH (13:00)
[2018-10-01 13:35] LABS: PROTHROMBIN TIME 13.3 SECONDS (12.1-14.4)
[2018-10-01 13:36] LABS: PARTIAL THROMBOPLASTIN TIME 31.2 SECONDS (25.4-37.6)
[2018-10-01 14:20] LABS: ALBUMIN 3.5 GM/DL (3.2-5.2); ALT/SGPT 496 U/L (12-78); BLOOD UREA NITROGEN 9 MG/DL (7-18); CALCIUM LEVEL 8.8 MG/DL (8.5-10.1); CARBON DIOXIDE LEVEL 14 MEQ/L (21-32); CHLORIDE LEVEL 114 MEQ/L (98-107); CREATININE FOR GFR 0.72 MG/DL (0.55-1.30); GLOMERULAR FILTRATION RATE > 60.0 (>60); GLUCOSE, FASTING 52 MG/DL (70-100); POTASSIUM SERUM 4.5 MEQ/L (3.5-5.1); SODIUM LEVEL 142 MEQ/L (136-145); TOTAL PROTEIN 6.1 GM/DL (6.4-8.2)
[2018-10-01] MEDS ORDERED: LIDOCAINE 2% INJ 100 MG/5 ML SDV (FOR ANES.) As Ordered ONE (15:55)
[2018-10-01] MEDS ORDERED: MIDAZOLAM INJ 2 MG/2 ML VIAL (J2250) As Ordered ONE (15:55)
[2018-10-01] MEDS ORDERED: PROPOFOL 200 MG/20 ML VIAL As Ordered ONE (15:55)
[2018-10-01] MEDS ORDERED: fentaNYL 100 MCG/2 ML INJECTION (J3010) As Ordered ONE (15:55)
[2018-10-01] MEDS ORDERED: CONRAY-60 60% 50ML VIAL (Q9961) As Ordered ONE (15:56)
[2018-10-01] MEDS ORDERED: SCOPOLAMINE 1MG TRANSDERMAL PATCH As Ordered ONE (15:57)
[2018-10-01] MEDS ORDERED: dexameTHASONE 4 MG/ML 1ML VIAL (J1100) As Ordered ONE ×2 (15:58→16:30)
[2018-10-01] MEDS ORDERED: ceFAZolin 1GM INJ (J0690 PER 500MG) As Ordered ONE (16:16)
[2018-10-01] MEDS ORDERED: METOCLOPRAMIDE INJ 10MG/2ML VIAL (J2765) As Ordered ONE (16:30)
[2018-10-01] MEDS ORDERED: ePHEDrine SULFATE 25 MG/5 ML(5MG/ML) SYRINGE As Ordered ONE (16:30)
[2018-10-01] MEDS ORDERED: HYDROmorphone HCL 2 MG/ML 1ML VIAL (J1170) As Ordered ONE (16:44)
--- NOTE | 2018-10-01 17:12 | IPNPDOC ---
Subjective Date Seen The patient was seen on 10/01/18. Subjective Chief Complaint/HPI left ureteral calculus Hematologic: Reports: Enlarged Lymph Nodes Assessment /Plan Assessment Operative note Preop Dx;Left proximal ureteral calculus Postop Dx: same Procedure: cystourethroscopy, left retrograde pyelography, left flexible ureteroscopy, laser fragmentation and extraction of left ureteral calculus, placement of left internal ureteral catheter Surgeon: [place] Anesthesia: general LMA complications: none drains: variable length by 6 burmese left internal ureteral catheter specimen: fragments of calculus left ureter submitted for stone analysis EBL:none Blood replaced: none The patient was transported to the recovery room in stable condition Goldie Watkins MD Plan/VTE VTE Prophylaxis Ordered?: Yes VS, I&O, 24H, Fishbone Vital Signs/I&O Vital Signs Date Time Temp Pulse Resp B/P (MAP) Pulse Ox O2 Delivery O2 Flow Rate FiO2 10/01/18 13:18 16 10/01/18 12:00 98.0 72 115/64 (81) 97 10/01/18 02:04 Room Air I&O- Last 24 Hours up to 6 AM 10/01/18 06:00 Intake Total 50 ml Balance 50 ml Laboratory Data 24H LABS Laboratory Tests 2 09/30/18 19:02: Urine Color BRIAN, Urine Appearance CLEAR, Urine pH 5.0, Urine Specific [place] 1.009, Urine Protein NEGATIVE, Urine Glucose (UA) NEGATIVE, Urine Ketones 1+H, Urine Blood 2+H, Urine Nitrite NEGATIVE, Urine Bilirubin 1+H, Urine Urobilinogen 2.0H, Urine Leukocyte Esterase NEGATIVE, Urine WBC (Auto) 6H, Urine RBC (Auto) 54H, Urine Hyaline Casts (Auto) 0, Urine Bacteria (Auto) NEGATIVE, Urine Squamous Epithelial Cells 0, Urine Mucus (Auto) SMALL, Urine Sperm (Auto) 09/30/18 19:16: Immature Granulocyte % (Auto) 0.2, White Blood Count 5.5, Red Blood Count 4.85, Hemoglobin 14.5, Hematocrit 43.6, Mean Corpuscular Volume 89.9, Mean Corpuscular Hemoglobin 29.9, Mean Corpuscular Hemoglobin Concent 33.3, Red Cell Distribution Width 13.6, Platelet Count 277, Neutrophils (%) (Auto) 70.9H, Lymphocytes (%) (Auto) 20.9L, Monocytes (%) (Auto) 5.3H, Eosinophils (%) (Auto) 2.0, Basophils (%) (Auto) 0.7, Neutrophils # (Auto) 3.9, Lymphocytes # (Auto) 1.1L, Monocytes # (Auto) 0.3, Eosinophils # (Auto) 0.1, Basophils # (Auto) 0.0, Nucleated Red Blood Cells % (auto) 0.0, Prothrombin Time 12.9, Prothromb Time International Ratio 0.96, Activated Partial Thromboplast Time 29.7, D-Dimer, Quantitative 1151.99H 09/30/18 19:17: Anion Gap 11, Glomerular Filtration Rate > 60.0, Calcium Level 9.5, Aspartate Amino Transf (AST/SGOT) 337H, Alanine Aminotransferase (ALT/SGPT) 792H, Alkaline Phosphatase 339H, Total Bilirubin 5.8H, Direct Bilirubin 5.4H, Total Protein 7.6, Albumin 4.4, Albumin/Globulin Ratio 1.38, Lipase 141 10/01/18 06:08: Nucleated Red Blood Cells % (auto) 0.0, Anion Gap 12, Glomerular Filtration Rate > 60.0, Calcium Level 8.1L, Triglycerides Level 291H, LDL Cholesterol 151H, Total Cholesterol 229H, Non-HDL Cholesterol (LDL + VLDL) 209, Total HDL Cholesterol 20L, Cholesterol/HDL Ratio 11.450H 10/01/18 13:06: Prothrombin Time 13.3, Prothromb Time International Ratio 1.00, Activated Partial Thromboplast Time 31.2, Anion Gap 14, Glomerular Filtration Rate > 60.0, Blood Urea Nitrogen 9, Creatinine 0.72, Sodium Level 142, Potassium Level 4.5, Chloride Level 114H, Carbon Dioxide Level 14L, Calcium Level 8.8, Aspartate Amino Transf (AST/SGOT) 149H, Alanine Aminotransferase (ALT/SGPT) 496H, Alkaline Phosphatase 295H, Total Bilirubin 6.0H, Total Protein 6.1L, Albumin 3.5#, Albumin/Globulin Ratio 1.35 CBC/BMP Laboratory Tests 09/30/18 19:16 Red Blood Count 4.85, Mean Corpuscular Volume 89.9, Mean Corpuscular Hemoglobin 29.9, Mean Corpuscular Hemoglobin Concent 33.3, Red Cell Distribution Width 13.6, Neutrophils (%) (Auto) 70.9 H, Lymphocytes (%) (Auto) 20.9 L, Monocytes (%) (Auto) 5.3 H, Eosinophils (%) (Auto) 2.0, Basophils (%) (Auto) 0.7, Neutrophils # (Auto) 3.9, Lymphocytes # (Auto) 1.1 L, Monocytes # (Auto) 0.3, Eosinophils # (Auto) 0.1, Basophils # (Auto) 0.0 09/30/18 19:17 10/01/18 06:08 Red Blood Count 4.07, Mean Corpuscular Volume 91.4, Mean Corpuscular Hemoglobin 29.0, Mean Corpuscular Hemoglobin Concent 31.7 L, Red Cell Distribution Width 14.0 10/01/18 13:06 Calcium Level 8.8, Aspartate Amino Transf (AST/SGOT) 149 H, Alanine Aminotransferase (ALT/SGPT) 496 H, Alkaline Phosphatase 295 H, Total Bilirubin 6.0 H, Total Protein 6.1 L, Albumin 3.5 # KRYSTIAN WATKINS MD Oct 01, 2018 17:12
[2018-10-01] MEDS ORDERED: LR 1,000 ML IV SCH (17:30)
[2018-10-01] MEDS ORDERED: fentaNYL 100 MCG/2 ML INJECTION (J3010) IV PRN (17:30)
--- NOTE | 2018-10-01 18:00 | REP ---
C-ARM VIEW ABDOMEN: A C-ARM view of the abdomen is performed. There is a left ureteral stent seen. The proximal pig-tail is coiled in the left renal pelvis. The distal end is not visualized. 20 seconds of fluoroscopy time was utilized. Electronically Signed by Grant Thakkar MD 10/01/2018 08:17 P
[2018-10-01] MEDS ORDERED: FLUTICASONE PROP 0.05% NASAL SPRAY 16 GM (FLONASE) PRN (18:15)
[2018-10-01] MEDS ORDERED: CYCLOBENZAPRINE 10 MG TAB PO PRN (18:15)
[2018-10-01] MEDS ORDERED: IBUPROFEN 800 MG TAB PO PRN (18:15)
[2018-10-01] MEDS ORDERED: SODIUM BICARBONATE 325 MG TAB PO ONE (19:00)
--- NOTE | 2018-10-01 19:26 | RO ---
DATE OF PROCEDURE: 10/01/2018 PREOPERATIVE DIAGNOSIS: Left proximal ureteral calculus. POSTOPERATIVE DIAGNOSIS: Left proximal ureteral calculus. PROCEDURE: Cystourethroscopy, left retrograde pyelography, left flexible ureteroscopy with laser fragmentation and extraction of left ureteral calculus, placement of left internal ureteral catheter. SURGEON: Dr. Varner ANESTHESIA: General, laryngeal mask anesthesia. COMPLICATIONS: None. DRAINS: Variable length 6-Romanian left internal ureteral catheter. SPECIMENS: Fragments of calculus from the left ureter submitted for analysis. ESTIMATED BLOOD LOSS: None. BLOOD REPLACED: None. HISTORY: The patient is a 33-year-old female who presents three weeks post- with an 8 mm calculus in the left proximal ureter. The options available for management were discussed with the patient and the decision was made to proceed with ureteroscopy laser fragmentation and extraction of the left ureteral calculus. Procedure was carefully explained to the patient, all of the benefits, risks, and alternatives. Informed consent was obtained. PROCEDURE: After successful anesthetization and satisfactory general anesthesia by LMA the patient was placed in the dorsal lithotomy position on the cystoscopy table using Lv stirrups. Patient was given intravenous Ancef. The patients genitalia were prepped and draped in a sterile manner. A #22-Romanian Olympus cystoscope sheath was placed with obturator in the bladder. Using the 30 degree lens the left ureteral orifice was identified and a left retrograde pyelogram was performed using an 8-Romanian coned tip catheter to inject contrast via the left ureter outline the calculus in the left proximal ureter easily. A 5-Romanian opened end ureteral catheter was then used to advance a guidewire proximal to the calculus. An additional guidewire was passed along side this. The calculus was not dislodged. At this point one of the guidewires was used to introduce a 13-Romanian ureteral assess sheath to just below the level of the calculus in the left ureter. The guidewire and the inner cannula were removed and the Olympus digital ureteroscope was inserted through the access sheath into the ureter where the calculus was easily visualized. The Holmium laser 280 micron fiber was then used to thoroughly fragment the calculus. A small Nitinol basket was used to retrieve the largest fragments. Careful inspection of the ureter demonstrated no points of perforation and only very small fragments in the collecting system of the kidney and ureter. At this point the accessory guidewire was left in place and the sheath was removed. Over the guidewire the cystoscope was then reinserted and a variable length about 6-Romanian left internal ureteral calculus was placed with the proximal end coiled in the renal pelvis. The distal end coiled in the bladder. The bladder was evaluated, the cystoscope was withdrawn. The patient was awakened and transported to the recovery room in satisfactory condition and tolerated the procedure well.
[2018-10-01 19:56] LABS: ALBUMIN 3.3 GM/DL (3.2-5.2); ALT/SGPT 480 U/L (12-78); BILIRUBIN,TOTAL 6.3 MG/DL (0.2-1.0); BLOOD UREA NITROGEN 8 MG/DL (7-18); CALCIUM LEVEL 8.3 MG/DL (8.5-10.1); CARBON DIOXIDE LEVEL 15 MEQ/L (21-32); CHLORIDE LEVEL 112 MEQ/L (98-107); GLOMERULAR FILTRATION RATE > 60.0 (>60); GLUCOSE, FASTING 118 MG/DL (70-100); POTASSIUM SERUM 4.3 MEQ/L (3.5-5.1); SODIUM LEVEL 139 MEQ/L (136-145); TOTAL PROTEIN 6.8 GM/DL (6.4-8.2)
[2018-10-01] MEDS: PRENATAL VITAMINS CHEWABLE TABLET PO SCH (20:13)
[2018-10-01] MEDS: DOCUSATE SODIUM 100 MG CAP PO SCH (20:13)
[2018-10-01] MEDS: ENOXAPARIN 40 MG/0.4 ML SYRINGE (J1650) SC SCH (20:14)
[2018-10-01] MEDS ORDERED: ENOXAPARIN 40 MG/0.4 ML SYRINGE (J1650) SC SCH (21:00)
[2018-10-02] VITALS (7 sets, daily range): BP systolic 113–137; BP diastolic 64–75
[2018-10-02] MEDS: PERCOCET 5MG/325MG TAB PO PRN ×2 (05:50→21:28)
--- NOTE | 2018-10-02 07:54 | IPNPDOC ---
Subjective Review oF Systems Chief Complaint The patient is a 33-year-old female admitted with a reason for visit of Kidney Stone. Events since Last Encounter POD # 1, left ureteroscopy, laser fragmentation and extraction of left ureteral calculus, placement of left internal ureteral catheter Afebrile post op Exam: alert female in bed in no distress Impression: The patient has experienced dysuria, frequency, spasms in her b ladder and left flank pain with voiding post procedure. I explained to the patient and her that this is not unusual post ureteroscopy and is aggravated by the presence of the left internal ureteral catheter. Plan: Discharge home when OK with hospitalist Follow up in office in one week to carry out cystoscopy and removal of left internal ureteral catheter. Vee Watkins MD Objective Vital Signs/I&O Vital Signs Date Time Temp Pulse Resp B/P (MAP) Pulse Ox O2 Delivery O2 Flow Rate FiO2 10/02/18 06:20 16 10/02/18 05:22 97.7 10/02/18 04:00 59 134/72 (92) 98 10/01/18 02:04 Room Air I&O- Last 24 Hours up to 6 AM 10/02/18 06:00 Intake Total 2390 ml Output Total 2175 ml Balance 215 ml Laboratory Data Labs 24H Laboratory Tests 2 10/01/18 13:06: Prothrombin Time 13.3, Prothromb Time International Ratio 1.00, Activated Partial Thromboplast Time 31.2, Anion Gap 14, Glomerular Filtration Rate > 60.0, Blood Urea Nitrogen 9, Creatinine 0.72, Sodium Level 142, Potassium Level 4.5, Chloride Level 114H, Carbon Dioxide Level 14L, Calcium Level 8.8, Aspartate Amino Transf (AST/SGOT) 149H, Alanine Aminotransferase (ALT/SGPT) 496H, Alkaline Phosphatase 295H, Total Bilirubin 6.0H, Total Protein 6.1L, Albumin 3.5#, Albumin/Globulin Ratio 1.35 10/01/18 17:01: 10/01/18 19:05: Anion Gap 12, Glomerular Filtration Rate > 60.0, Blood Urea Nitrogen 8, Creatinine 0.90, Sodium Level 139, Potassium Level 4.3, Chloride Level 112H, Carbon Dioxide Level 15L, Calcium Level 8.3L, Aspartate Amino Transf (AST/SGOT) 118H, Alanine Aminotransferase (ALT/SGPT) 480H, Alkaline Phosphatase 313H, Total Bilirubin 6.3H, Total Protein 6.8, Albumin 3.3, Albumin/Globulin Ratio 0.94L 10/02/18 07:22: CBC/BMP Laboratory Tests 10/01/18 13:06 Calcium Level 8.8, Aspartate Amino Transf (AST/SGOT) 149 H, Alanine Aminotransferase (ALT/SGPT) 496 H, Alkaline Phosphatase 295 H, Total Bilirubin 6.0 H, Total Protein 6.1 L, Albumin 3.5 # 10/01/18 19:05 Calcium Level 8.3 L, Aspartate Amino Transf (AST/SGOT) 118 H, Alanine Aminotransferase (ALT/SGPT) 480 H, Alkaline Phosphatase 313 H, Total Bilirubin 6.3 H, Total Protein 6.8, Albumin 3.3 Assessment/Plan Date Seen The patient was seen on 10/02/18. Plan/VTE VTE Prophylaxis Ordered?: Yes KRYSTIAN WATKINS MD Oct 02, 2018 07:54
[2018-10-02] MEDS ORDERED: NS 1,000 ML IV ONE (08:00)
[2018-10-02 08:05] LABS: ALBUMIN 3.2 GM/DL (3.2-5.2); ALT/SGPT 403 U/L (12-78); BILIRUBIN,TOTAL 6.1 MG/DL (0.2-1.0); BLOOD UREA NITROGEN 6 MG/DL (7-18); CALCIUM LEVEL 9.1 MG/DL (8.5-10.1); CARBON DIOXIDE LEVEL 19 MEQ/L (21-32); CHLORIDE LEVEL 110 MEQ/L (98-107); CREATININE FOR GFR 0.87 MG/DL (0.55-1.30); GLOMERULAR FILTRATION RATE > 60.0 (>60); GLUCOSE, FASTING 72 MG/DL (70-100); SODIUM LEVEL 140 MEQ/L (136-145); TOTAL PROTEIN 6.6 GM/DL (6.4-8.2)
[2018-10-02] MEDS ORDERED: diazePAM 2 MG TAB PO ONE (08:30)
[2018-10-02] MEDS ORDERED: VITAMIN D 1,000 INTERNATIONAL UNITS TABLET PO SCH (09:00)
[2018-10-02] MEDS ORDERED: CETIRIZINE (ZyrTEC) 10 MG TAB PO SCH (09:00)
[2018-10-02] MEDS: DOCUSATE SODIUM 100 MG CAP PO SCH ×2 (09:06→21:27)
[2018-10-02] MEDS: SODIUM BICARBONATE 325 MG TAB PO SCH ×4 (09:06→21:27)
[2018-10-02 10:36] LABS: HEPATITIS B SURFACE ANTIGEN NEGATIVE (NEGATIVE)
[2018-10-02 11:04] LABS: HEPATITIS B CORE ANTIBODY IGM NEGATIVE (NEGATIVE); HEPATITIS C VIRUS ABY INDEX < 0.0 INDEX (<0.8)
[2018-10-02 11:06] LABS: HEPATITIS A ANTIBODY IGM NEGATIVE (NEGATIVE)
[2018-10-02] MEDS ORDERED: D5W/0.45% SODIUM CHLORIDE 1,000 ML IV SCH (11:15)
[2018-10-02] MEDS ORDERED: KETOROLAC 30 MG/ML VIAL (J1885) IV ONE (12:00)
--- NOTE | 2018-10-02 12:19 | IPNPDOC ---
Date Seen The patient was seen on 10/02/18. Progress Note Date Seen The patient was seen on 10/02/18. Progress Note SUBJECTIVE: Pt appears to be increasingly jaundiced with slight scleral icterus w c/o ruq and epigastric pain at times radiating to the back. no fever or chills. rating pain as 5/10 sharp at times, better with pain meds Bilirubin continues to increase with normal hepatitis serology. Pt says she gets claustrophobic with MRI and requests her head not be put into the machine, and to have valium prior to the test. GI to evaluate with ERCP if needed. Dr. Thomas consulted. Per patient, her brother has a history of hepatitis C s/p yoana, but has progressed on to having liver cancer, and she remain worried that she may have hepatitis. She has been reassured that her serology is negative. OBJECTIVE: PHYSICAL EXAMINATION: VITALS: PLS SEE BELOW General: No acute distress, Alert Eyes: Normal sclera, EOMI, JENNIFER HENT: Atraumatic, neck supple, moist mucous membranes Cardiovascular: Normal rate, normal rhythm. No murmurs appreciated. Pulmonary: Clear to auscultation b/l, no wheezing GI: Soft, mild tenderness epigastric and R. back tenderness, nondistended Skin: Warm and dry Neuro: CN grossly intact. No focal deficits. Strengths equal b/l. Psych: oriented x 3 LABORATORY DATA, IMAGING STUDIES, MICROBIOLOGY: Please see below. IMAGING: CT Chest Angio- IMPRESSION: 1. There are no pulmonary emboli. 2. There is no aortic dissection or aneurysm. CT abdomen/pelvis w/contrast- IMPRESSION: 1. Disc-shaped anterior abdominal wall hematoma/seroma measures 7.4 x 1.1 x 5.4 cm consistent with recent surgery. 2. There is a diffuse decrease in hepatic parenchymal density, consistent with fatty infiltration. 3. There has been a cholecystectomy. 4. This patient is status post gastric bypass surgery and section. 5. There is an 8 mm. obstructive ureteral calculus located in the proximal left ureter resulting in mild to moderate proximal hydroureteronephrosis. There is no periureteral and perinephric stranding. No urinoma demonstrated. 6. There is increased feces throughout the colon consistent with constipation. ASSESSMENT AND PLAN: Patient is 33-year-old female with past medical history of factor V Leyden deficiency on Lovenox and PCO S presented to ER with complaints of abdominal pain and L. flank pain for the past [address] scan in ER found an 8mm obstructive L. ureteral calculus with mild to moderate hydroureteronephrosis. Patient also reports nausea and chills but otherwise denies any other complaints. L. nephrolithiasis -s/p IVF support and pain control. - Urology consulted. no ice chipos - Zofran for nausea -negative ua. -10/01/18 s/p Cystourethroscopy, left retrograde pyelography, left flexible ureteroscopy with laser fragmentation and extraction of left ureteral calculus, placement of left internal ureteral catheter. Hyperbilirubinemia with transaminitis and s/p cholecystectomy with overt jaundice, icterus, and c/o ruq and epigastric pain GI, Dr. Thomas, has been following the patient in the office, and has been consulted. MRCP today, and kept NPO for ERCP Factor V leiden mutation hold lovenox due to plans for ERCP Obesity s/p gastric sleeve BMI 38.1 LAKISHA protocol Fatty liver with abnormal LFTs hepatitis serology negative reviewed lipid profile adrenal adenoma outpt fu. pt adviced NOT to breast feed. Claustrophobia pt requests valium prior to MRCP. disposition: dc 24hrs after ERCP if stable. NPO for now. DVT ppx: lovenox and SCD Code status: Full code VS, I&O, 24H, Fishbone Vital Signs/I&O Vital Signs Date Time Temp Pulse Resp B/P (MAP) Pulse Ox O2 Delivery O2 Flow Rate FiO2 10/02/18 08:00 98.3 57 16 114/64 (81) 96 10/01/18 02:04 Room Air I&O- Last 24 Hours up to 6 AM 10/02/18 06:00 Intake Total 2390 ml Output Total 2175 ml Balance 215 ml Laboratory Data 24H LABS Laboratory Tests 2 10/01/18 13:06: Prothrombin Time 13.3, Prothromb Time International Ratio 1.00, Activated Partial Thromboplast Time 31.2, Anion Gap 14, Glomerular Filtration Rate > 60.0, Blood Urea Nitrogen 9, Creatinine 0.72, Sodium Level 142, Potassium Level 4.5, Chloride Level 114H, Carbon Dioxide Level 14L, Calcium Level 8.8, Aspartate Amino Transf (AST/SGOT) 149H, Alanine Aminotransferase (ALT/SGPT) 496H, Alkaline Phosphatase 295H, Total Bilirubin 6.0H, Total Protein 6.1L, Albumin 3.5#, Albumin/Globulin Ratio 1.35 10/01/18 17:01: 10/01/18 19:05: Anion Gap 12, Glomerular Filtration Rate > 60.0, Blood Urea Nitrogen 8, Creatinine 0.90, Sodium Level 139, Potassium Level 4.3, Chloride Level 112H, Carbon Dioxide Level 15L, Calcium Level 8.3L, Aspartate Amino Transf (AST/SGOT) 118H, Alanine Aminotransferase (ALT/SGPT) 480H, Alkaline Phosphatase 313H, Total Bilirubin 6.3H, Total Protein 6.8, Albumin 3.3, Albumin/Globulin Ratio 0.94L 10/02/18 07:22: Anion Gap 11, Glomerular Filtration Rate > 60.0, Blood Urea Nitrogen 6L, Creatinine 0.87, Sodium Level 140, Potassium Level 4.0, Chloride Level 110H, Carbon Dioxide Level 19L, Calcium Level 9.1, Aspartate Amino Transf (AST/SGOT) 145H, Alanine Aminotransferase (ALT/SGPT) 403H, Alkaline Phosphatase 300H, Total Bilirubin 6.1H, Total Protein 6.6, Albumin 3.2, Albumin/Globulin Ratio 0.94L CBC/BMP Laboratory Tests 10/01/18 13:06 Calcium Level 8.8, Aspartate Amino Transf (AST/SGOT) 149 H, Alanine Aminotransferase (ALT/SGPT) 496 H, Alkaline Phosphatase 295 H, Total Bilirubin 6.0 H, Total Protein 6.1 L, Albumin 3.5 # 10/01/18 19:05 Calcium Level 8.3 L, Aspartate Amino Transf (AST/SGOT) 118 H, Alanine Aminotransferase (ALT/SGPT) 480 H, Alkaline Phosphatase 313 H, Total Bilirubin 6.3 H, Total Protein 6.8, Albumin 3.3 10/02/18 07:22 Calcium Level 9.1, Aspartate Amino Transf (AST/SGOT) 145 H, Alanine Aminotransferase (ALT/SGPT) 403 H, Alkaline Phosphatase 300 H, Total Bilirubin 6.1 H, Total Protein 6.6, Albumin 3.2 MARY RAMIREZ MD Oct 02, 2018 12:19
--- NOTE | 2018-10-02 19:25 | CR.PDOC ---
General Date of Consultation: Oct 02, 2018 Referring Provider: MARY RAMIREZ MD Attending Physician: ELIZABETH VIEYRA MD Consultation Primary physician/ hospitalist: Dr. Kramer Reason for consult: Abnormal liver tests HPI: 33-year-old female patient with vitamin D deficiency, depression, factor V Leiden ( carrier on Lovenox, as per primary team), was admitted to hospital for abdominal pain and left flank pain, noted with ureteral calculus, treated by urology, and also noted with worsening Bilirubin and liver panel. GI consulted for the same. patient reported having some pruritus during 37- 28 weeks gestion ( in August 2018) when she was told of possible cholestasis during ( unclear if she had confirmed diagnosis but says she had her C- section pre-poned for that reason by few days, Patient also reported having hyper emesis during her . Since sunday this week she started noticing jaundice. Patient also reports that she was getting adequate pain relief medications and so denies any overt abdominal pain now. But while examination reported epigastric and right upper quadrant abdominal pain and also nausea associated with food intake.. Patient also reports chronic constipation ( for which she used to take senna and colace but stopped recently. Patient denies any OTC or herbal supplements. Patient also denies fever, chills, altered mentation, sick contacts. Pertinent negative GI symptoms: Patient denies vomiting, diarrhea, loss of appetite, early satiety or unintentional weight loss. No history of hematemesis, melena or hematochezia. Patient reports regular bowel movements. Review of Systems: GI: as stated above CVS: No chest pain, No palpitations, No leg swelling. 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 Skin: No rash : No hematuria, No burning sensation of the urine ENT: No ear discharge/ pain, No dysphagia. Eyes: No photophobia. Home medications: reviewed. Antithrombotic agents -Lovenox Medical h/o: As above. Surgical h/o: Cholecystectomy, gastric sleeve surgery, abdominoplasty, x 2 (recent in August 2018). Social h/o: Alcohol-denies, tobacco-denies, IVDA/ drugs-denies. Family h/o of GI cancers -hepatitis and liver cancer in brother Prior Endoscopies: -none in [facility] --- EGD -- patient reports having EGD at around 2-4 years ago outside [facility]. --- Colonoscopy -none Prior GI evaluation: Previously was seen in GI clinic in [facility] by me for right upper quadrant abdominal pain, scheduled for EGD but did not follow-up due to her . Exam: Vitals: reviewed General: Alert and oriented x 3, not in distress HEENT: NO pallor, no icterus. Normal oropharynx, NO cervical lymph nodes. Chest: symmetric with bilateral clear air entry, CVS: S1, S2 heard, normal, no murmurs . Abdomen: non-distended, no surgical scars, soft, non-tender, no palpable masses, normal bowel sounds heard. Rectal exam: Patient refused / Deferred at this time in view of scheduled colonoscopy. Extremities: no pedal edema, pulses palpable. 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 Moves all extremities Skin: no rash. Labs: reviewed. -- Acute viral hepatitis panel is reported negative Imaging tests: reviewed CT abdomen reviewed with radiologist -- suggest prominent CBD of 1 cm diameter, increased when compared to her previous ultrasound abdomen in 2018. Impression: -- Recurrent episodes of right upper quadrant abdominal pain with worsening liver panel, prior cholecystectomy and abdominal imaging showing prominent CBD -- DDx-- CBD stones vs SOD vs very unlikely Intrahepatic cholestsis of ( due to symptoms post delivery) and r/o other autoimmune and metabolic liver disease. Recommendations: - Patient educated about the test results, possible differential diagnoses and All questions answered. - NPO for now. - Will obtain MRCP for further evaluation of the biliary tree. - Complete liver workup including autoimmune and metabolic liver disease panel -- ( KRISTI, ASMA, AMA, LKMA, Ceruloplasmin, Iron studies.). and also obtain GGT, Bile acid levels. - to obtain recent labs ( if any liver panel done at [facility] or outside [facility] labs to compare prior liver panel). - Based on above results will plan for ERCP with or without CBD stenting. - The procedure, indications, risks (acute pancreatitis, bleeding, perforation, infection, hypotension, respiratory depression, allergy, need for endotracheal intubation, surgery, colostomy, cardiac arrest, even ), benefits, limitations (e.g., missing a lesion), and all other alternatives (including no intervention) were explained to the patient who understood and agreed for the procedure. 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 So discussed the increased risk of bleeding from ERCP. - if patient develops further acute worsening of liver panel and develops AMS, to transfer urgently to liver center. Plan of care discussed with patient and primary team. Patient verbalized understanding and agreed with the plan. Allergies Coded Allergies: fluconazole (Verified Allergy, Intermediate, LIP SWELLING, 08/23/18) levofloxacin (Verified Allergy, Intermediate, HIVES, 08/23/18) Home Medications Scheduled Bifidobacterium Infantis (Align) 4 Mg Capsule, 4 MG PO DAILY, (Reported) Cetirizine HCl (Cetirizine HCl) 10 Mg Tablet, 10 MG PO DAILY, (Reported) Cholecalciferol (Vitamin D3) (Vitamin D3) 1,000 Unit Tablet, 1,000 UNIT PO DAILY, (Reported) Docusate Sodium (Colace) 100 Mg Cap, 100 MG PO BID, (Reported) Enoxaparin Sodium (Enoxaparin Sodium) 40 Mg/0.4 Ml Syringe, 40 MG SC QHS, (Reported) Magnesium Oxide (Magnesium Oxide) 400 Mg Tablet, 400 MG PO BID, (Reported) Oml109/Iron Fum/Folic/Docusate ( 19 Tablet) 1 Tab Tab, 1 TAB PO QHS, (Reported) Scheduled PRN Cyclobenzaprine HCl (Cyclobenzaprine HCl) 10 Mg Tablet, 10 MG PO TID PRN for MUSCLE SPASMS, (Reported) Fluticasone Propionate (Fluticasone Propionate) 16 Gm [place].susp, 1 SPRAY NA BID PRN for NASAL CONGESTION, (Reported) Ibuprofen (Ibuprofen) 800 Mg Tablet, 800 MG PO TID PRN for PAIN, (Reported) ELIZABETH VIEYRA MD Oct 02, 2018 19:25
[2018-10-02] MEDS: ONDANSETRON 4MG/2ML VIAL (J2405) IV PRN (21:06)
--- NOTE | 2018-10-02 21:21 | REPVR ---
EXAM: MR Abdomen Without Contrast EXAM DATE/TIME: 10/02/2018 8:45 PM CLINICAL HISTORY: 33 years old, female; Abdominal pain; Localized; Right upper quadrant (ruq); Prior surgery; Surgery date: Post-operative (0-2 days); Surgery type: Kidney stone removed 2 days prior; Patient HX: PT states HX of kidney stones, severe abd pain yellowing of eyes. Increased labs, nki, 3 weeks post , CT on pacs; Additional info: Increasing bili S/P cholecystectomy R/O retained stone/sludg TECHNIQUE: Imaging protocol: MRCP of the abdomen without contrast. 3D rendering: MIP reconstructed images were created and reviewed. COMPARISON: RF Retrograde Pyelogram 10/01/2018 4:26 PM FINDINGS: Liver: No mass. Gallbladder and bile ducts: There has been a cholecystectomy. Common bile but measures 9 mm. Filling defect in the distal common bile duct measures 6-7 mm. Findings consistent with choledocholithiasis should be correlated with biliary chemistries. Minimal intrahepatic biliary dilatation. Pancreas: Unremarkable. No ductal dilation. Spleen: Unremarkable. No splenomegaly. Adrenals: Unremarkable. No mass. Kidneys and ureters: Unremarkable. No solid mass. No hydronephrosis. Stomach and bowel: Unremarkable. Intraperitoneal space: No fluid collection. Arteries: No abdominal aortic aneurysm. Soft tissues: Unremarkable. IMPRESSION: 1. There has been a cholecystectomy. 2. Common bile but measures 9 mm. Filling defect in the distal common bile duct measures 6-7 mm. Findings consistent with choledocholithiasis should be correlated with biliary chemistries. Minimal intrahepatic biliary dilatation. Electronically signed by: Norman Sweet On 10/02/2018 21:21:19 PM
[2018-10-02] MEDS: PRENATAL VITAMINS CHEWABLE TABLET PO SCH (21:27)
[2018-10-02] MEDS: ENOXAPARIN 40 MG/0.4 ML SYRINGE (J1650) SC SCH (21:29)
[2018-10-03] VITALS (11 sets, daily range): BP systolic 100–158; BP diastolic 56–86
[2018-10-03] MEDS: diphenhydrAMINE INJ 50MG/ML VIAL (J1200) IV PRN ×4 (00:14→23:41)
[2018-10-03] MEDS: PERCOCET 5MG/325MG TAB PO PRN ×3 (05:57→22:13)
--- NOTE | 2018-10-03 07:40 | IPNPDOC ---
Subjective Review oF Systems Chief Complaint The patient is a 33-year-old female admitted with a reason for visit of Kidney Stone. Events since Last Encounter The patient still has abdominal pain, can be due to the presence of left internal ureteral catheter that will need to stay in place for one week post removal of left ureteral calculus. Evaluation of elevated bilirubin is in progress, MRI done last night. vital signs reveal patient to be afebrile. Exam: alert female sitting up in bed in no distress. Plan: Follow up in office in one week for cystoscopy and removal of left internal ureteral catheter. Discussed with patient and , Vee Watkins MD Objective Vital Signs/I&O Vital Signs Date Time Temp Pulse Resp B/P (MAP) Pulse Ox O2 Delivery O2 Flow Rate FiO2 10/03/18 06:27 18 10/03/18 05:57 55 97 10/03/18 04:00 97.7 100/58 (72) 10/01/18 02:04 Room Air I&O- Last 24 Hours up to 6 AM 10/03/18 06:00 Intake Total 2470 ml Output Total 2125 ml Balance 345 ml Assessment/Plan Date Seen The patient was seen on 10/03/18. Plan/VTE VTE Prophylaxis Ordered?: Yes KRYSTIAN WATKINS MD Oct 03, 2018 07:40
--- NOTE | 2018-10-03 10:35 | IPNPDOC ---
Date Seen The patient was seen on 10/03/18. Progress Note Progress Note: Date of service: 10/03/18 SUBJECTIVE: Overnight, pt was unhappy about being NPO. T bili still at 6-6.3 Pt appears to be increasingly jaundiced with slight scleral icterus w c/o ruq and epigastric pain at times radiating to the back. no fever or chills. rating pain as 5/10 sharp at times, better with pain meds Bilirubin continues to increase with normal hepatitis serology. Pt says she gets claustrophobic with MRI and requests her head not be put into the machine, and to have valium prior to the test. GI consulted for ERCP . mrcp 10/02/18: Common bile but measures 9 mm. Filling defect in the distal common bile duct measures 6-7 mm. Findings consistent with choledocholithiasis should be correlated with biliary chemistries. Minimal intrahepatic biliary dilatation OBJECTIVE: PHYSICAL EXAMINATION: VITALS: PLS SEE BELOW General: No acute distress, Alert Eyes: Normal sclera, EOMI, JENNIFER HENT: Atraumatic, neck supple, moist mucous membranes Cardiovascular: Normal rate, normal rhythm. No murmurs appreciated. Pulmonary: Clear to auscultation b/l, no wheezing GI: Soft, mild tenderness epigastric and R. back tenderness, nondistended Skin: Warm and dry Neuro: CN grossly intact. No focal deficits. Strengths equal b/l. Psych: oriented x 3 LABORATORY DATA, IMAGING STUDIES, MICROBIOLOGY: Please see below. IMAGING: CT Chest Angio- IMPRESSION: 1. There are no pulmonary emboli. 2. There is no aortic dissection or aneurysm. CT abdomen/pelvis w/contrast- IMPRESSION: 1. Disc-shaped anterior abdominal wall hematoma/seroma measures 7.4 x 1.1 x 5.4 cm consistent with recent surgery. 2. There is a diffuse decrease in hepatic parenchymal density, consistent with fatty infiltration. 3. There has been a cholecystectomy. 4. This patient is status post gastric bypass surgery and section. 5. There is an 8 mm. obstructive ureteral calculus located in the proximal left ureter resulting in mild to moderate proximal hydroureteronephrosis. There is no periureteral and perinephric stranding. No urinoma demonstrated. 6. There is increased feces throughout the colon consistent with constipation. mrcp 10/02/18: Common bile but measures 9 mm. Filling defect in the distal common bile duct measures 6-7 mm. Findings consistent with choledocholithiasis should be correlated with biliary chemistries. Minimal intrahepatic biliary dilatation ASSESSMENT AND PLAN: Patient is 33-year-old female with past medical history of factor V Leyden deficiency on Lovenox and PCO S presented to ER with complaints of abdominal pain and L. flank pain for the past [address] scan in ER found an 8mm obstructive L. ureteral calculus with mild to moderate hydroureteronephrosis. Patient also reports nausea and chills but otherwise denies any other complaints. L. nephrolithiasis -s/p IVF support and pain control. - Urology consulted. no ice chipos - Zofran for nausea -negative ua. -10/01/18 s/p Cystourethroscopy, left retrograde pyelography, left flexible ureteroscopy with laser fragmentation and extraction of left ureteral calculus, placement of left internal ureteral catheter. Choledocholithiasis with persistent hyperbilirubinemia/jaundice and pruritus and s/p cholecystectomy with overt jaundice, icterus, and c/o ruq and epigastric pain GI, Dr. Thomas, has been following the patient in the office, and has been consulted. kept NPO for ERCP 10/03/18 mrcp 10/02/18: Common bile but measures 9 mm. Filling defect in the distal common bile duct measures 6-7 mm. Findings consistent with choledocholithiasis should be correlated with biliary chemistries. Minimal intrahepatic biliary dilatation Factor V leiden mutation hold lovenox due to plans for ERCP Obesity s/p gastric sleeve BMI 38.1 LAKISHA protocol Fatty liver with abnormal LFTs hepatitis serology negative reviewed lipid profile adrenal adenoma outpt fu. pt adviced NOT to breast feed. Claustrophobia pt requests valium prior to MRCP. disposition: dc 24hrs after ERCP if stable. NPO for now. DVT ppx: lovenox and SCD Code status: Full code VS, I&O, 24H, Fishbone Vital Signs/I&O Vital Signs Date Time Temp Pulse Resp B/P (MAP) Pulse Ox O2 Delivery O2 Flow Rate FiO2 10/03/18 08:40 16 10/03/18 08:00 97.1 48 112/61 (78) 97 10/01/18 02:04 Room Air I&O- Last 24 Hours up to 6 AM 10/03/18 06:00 Intake Total 2470 ml Output Total 2125 ml Balance 345 ml MARY RAMIREZ MD Oct 03, 2018 10:35
[2018-10-03] MEDS ORDERED: ISOVUE-300 61% 50ML VIAL (Q9967) As Ordered ONE ×2 (15:54→15:55)
[2018-10-03] MEDS ORDERED: SUGAMMADEX SODIUM 500 MG/5 ML VIAL (BRIDION) As Ordered ONE (15:55)
[2018-10-03] MEDS ORDERED: dexameTHASONE 4 MG/ML 1ML VIAL (J1100) As Ordered ONE (15:55)
[2018-10-03] MEDS ORDERED: MIDAZOLAM INJ 2 MG/2 ML VIAL (J2250) As Ordered ONE (15:55)
[2018-10-03] MEDS ORDERED: ROCURONIUM BROMIDE 50 MG/5 ML VIAL As Ordered ONE (15:55)
[2018-10-03] MEDS ORDERED: ONDANSETRON 4MG/2ML VIAL (J2405) As Ordered ONE ×2 (15:55→18:04)
[2018-10-03] MEDS ORDERED: PROPOFOL 200 MG/20 ML VIAL As Ordered ONE ×2 (15:55→16:41)
[2018-10-03] MEDS ORDERED: LIDOCAINE 2% INJ 100 MG/5 ML SDV (FOR ANES.) As Ordered ONE (15:55)
[2018-10-03] MEDS ORDERED: fentaNYL 100 MCG/2 ML INJECTION (J3010) As Ordered ONE (15:55)
[2018-10-03] MEDS ORDERED: SCOPOLAMINE 1MG TRANSDERMAL PATCH As Ordered ONE (16:13)
[2018-10-03] MEDS ORDERED: METOCLOPRAMIDE INJ 10MG/2ML VIAL (J2765) As Ordered ONE (16:41)
--- NOTE | 2018-10-03 18:14 | ROOR ---
Patient Name: Chay Lawton Procedure Date: 10/03/2018 4:27 PM Date of : 1985 Age: 33 Room: Main OR Gender: Female Note Status: Finalized Procedure: ERCP Indications: Bile duct stone(s), Jaundice, Elevated liver enzymes Providers: Romel Thomas MD Referring MD: KALEY ROCHE MD Requesting Provider: Medicines: Monitored Anesthesia Care Complications: No immediate complications. Procedure: Pre-Anesthesia Assessment: - Prior to the procedure, a History and Physical was performed, and patient medications and allergies were reviewed. The patient is competent. The risks and benefits of the procedure and the sedation options and risks were discussed with the patient. All questions were answered and informed consent was obtained. Patient identification and proposed procedure were verified by the physician, the nurse and the anesthesiologist in the procedure room. Mental Status Examination: alert and oriented. Airway Examination: normal oropharyngeal airway and neck mobility. Respiratory Examination: clear to auscultation. CV Examination: normal. Prophylactic Antibiotics: The patient does not require prophylactic antibiotics. Prior Anticoagulants: The patient has taken no previous anticoagulant or antiplatelet agents. ASA Grade Assessment: II - A patient with mild systemic disease. After reviewing the risks and benefits, the patient was deemed in satisfactory condition to undergo the procedure. The anesthesia plan was to use monitored anesthesia care (MAC). Immediately prior to administration of medications, the patient was re-assessed for adequacy to receive sedatives. The heart rate, respiratory rate, oxygen saturations, blood pressure, adequacy of pulmonary ventilation, and response to care were monitored throughout the procedure. The physical status of the patient was re-assessed after the procedure. The Duodenoscope was introduced through the mouth, and advanced to the duodenum and used to inject contrast into the bile duct. The ERCP was accomplished without difficulty. The patient tolerated the procedure well. Findings: The well cleaner film was normal. The esophagus was successfully intubated under direct vision. Examination of the pharynx, larynx and associated structures was normal. A standard esophagogastroduodenoscopy scope was used for the examination of the upper gastrointestinal tract. The scope was passed under direct vision through the upper GI tract. The examined esophagus was normal. Evidence of a sleeve gastrectomy was found in the gastric fundus, in the gastric body and in the gastric antrum. This was characterized by healthy appearing mucosa. The ampulla, duodenal bulb and second portion of the duodenum were normal. The esophagus was successfully intubated under direct vision. The Duodenoscope was later advanced to a normal major papilla in the descending duodenum without detailed examination of the pharynx, larynx and associated structures, and upper GI tract. The upper GI tract was grossly normal. 0.035 inch x 260 cm straight Hydra Jagwire was passed into the biliary tree. The short-nosed traction sphincterotome was passed over the guidewire and the bile duct was then deeply cannulated. Contrast was injected. I personally interpreted the bile duct images. Ductal flow of contrast was adequate. Image quality was adequate. Contrast extended to the entire biliary tree. The main bile duct was diffusely dilated, with a stone causing an obstruction. The largest diameter was 12 mm. The lower third of the main bile duct contained filling defect(s) thought to be a stone. A 2 mm biliary sphincterotomy was made with a monofilament traction (standard) sphincterotome using ERBE electrocautery. There was no post-sphincterotomy bleeding. The biliary tree was swept with a 12 mm balloon starting at the bifurcation. Sludge was swept from the duct. One 10 Fr by 7 cm plastic stent with a single external flap and a single internal flap was placed into the common bile duct. Bile flowed through the stent. The stent was in good position. Pancreatic duct was cannulated with wire but Contrast was not injected. Impression: - Normal esophagus. - A sleeve gastrectomy was found, characterized by healthy appearing mucosa. - Normal ampulla, duodenal bulb and second portion of the duodenum. - A filling defect consistent with a stone was seen on the cholangiogram. - The entire main bile duct was dilated, with a stone causing an obstruction. - The examination was suspicious for choledocholithiasis. A small biliary sphincterotomy was performed. Sludge came out with balloon sweeps. Due to anticoagulation use, sphincterotomy was not extended and a plastic biliary stent was inserted. - The biliary tree was swept and sludge was found. - One plastic stent was placed into the common bile duct. Recommendation: - Avoid aspirin and nonsteroidal anti-inflammatory medicines for 1 week. - The patient will be observed post-procedure, until all discharge criteria are met. - Patient has a contact number available for emergencies. The signs and symptoms of potential delayed complications were discussed with the patient. Return to normal activities tomorrow. Written discharge instructions were provided to the patient. - [facility]. - NPO today, then advance as tolerated to clear liquid diet for 1 day. - Give Ringers lactate drip today. - Check liver enzymes (AST, ALT, alkaline phosphatase, bilirubin) and hemogram with white blood cell count and platelets q 8 hours for one day. - Repeat ERCP in 3 months to remove stent. - Return to GI clinic in [facility] (address [address], [address] [address]) in 4 -- 6 weeks. Please call GI clinic @ [phone] for apppointment date and time. - Return to primary care physician. Romel Thomas MD Romel Thomas MD 10/03/2018 6:14:18 PM Electronically signed by Romel Thomas MD Number of Addenda: 0 Note Initiated On: 10/03/2018 4:27 PM Estimated Blood Loss: Estimated blood loss: none.
[2018-10-03] MEDS ORDERED: PERCOCET 5MG/325MG TAB As Ordered ONE (18:20)
[2018-10-03] MEDS ORDERED: PROMETHAZINE INJ 25 MG/ML VIAL (J2550) As Ordered ONE (18:25)
[2018-10-03] MEDS ORDERED: PERCOCET 5MG/325MG TAB PO PRN (18:30)
[2018-10-03] MEDS ORDERED: fentaNYL 100 MCG/2 ML INJECTION (J3010) IV PRN (18:30)
[2018-10-03] MEDS ORDERED: ONDANSETRON 4MG/2ML VIAL (J2405) IV PRN (18:30)
[2018-10-03] MEDS ORDERED: LR 1,000 ML IV SCH (18:30)
[2018-10-03] MEDS ORDERED: HYDROMORPHONE HCL 0.5 MG/ 0.5 ML SYRINGE (J1170 PER 1) IV PRN (18:30)
--- NOTE | 2018-10-03 18:31 | REP ---
INTRAOPERATIVE ERCP: 57 seconds of fluoroscopy was provided Dr. Thomas during ERCP and stent placement. Varying degrees of common bile duct and intrahepatic duct contrast opacification is noted throughout the exam. The final two images show a stent in place. Electronically Signed by Giorgio Sahu DO 10/03/2018 07:07 P
[2018-10-03] MEDS ORDERED: PROMETHAZINE INJ 25 MG/ML VIAL (J2550) IV PRN (18:45)
[2018-10-03] MEDS: LR 2,000 ML IV SCH ×2 (20:00→23:42)
[2018-10-03 20:22] LABS: HEMATOCRIT 37.4 % (36.0-47.0); HEMOGLOBIN 12.3 g/dl (12.0-15.5); MEAN CORPUSCULAR HEMOGLOBIN 29.6 pg (27.0-33.0); MEAN CORPUSCULAR HGB CONC 32.9 g/dl (32.0-36.5); MEAN CORPUSCULAR VOLUME 89.9 fl (80.0-96.0); PLATELET COUNT, AUTOMATED 253 10^3/uL (150-450); RED BLOOD COUNT 4.16 10^6/uL (4.00-5.40); WHITE BLOOD COUNT 4.7 10^3/uL (4.0-10.0)
[2018-10-03 20:55] LABS: ALT/SGPT 268 U/L (12-78); BILIRUBIN,TOTAL 3.6 MG/DL (0.2-1.0); BLOOD UREA NITROGEN 5 MG/DL (7-18); CALCIUM LEVEL 8.6 MG/DL (8.5-10.1); CARBON DIOXIDE LEVEL 25 MEQ/L (21-32); CHLORIDE LEVEL 111 MEQ/L (98-107); CREATININE FOR GFR 0.69 MG/DL (0.55-1.30); GLOMERULAR FILTRATION RATE > 60.0 (>60); GLUCOSE, FASTING 92 MG/DL (70-100); POTASSIUM SERUM 3.9 MEQ/L (3.5-5.1); SODIUM LEVEL 142 MEQ/L (136-145); TOTAL PROTEIN 6.4 GM/DL (6.4-8.2)
[2018-10-03] MEDS ORDERED: PRENATAL VITAMINS CHEWABLE TABLET PO SCH (21:00)
[2018-10-03] MEDS: DOCUSATE SODIUM 100 MG CAP PO SCH (21:54)
[2018-10-03] MEDS: ENOXAPARIN 40 MG/0.4 ML SYRINGE (J1650) SC SCH (21:54)
[2018-10-04] VITALS: BP 140/74
[2018-10-04 04:00] VITALS: BP 118/67
[2018-10-04] MEDS: PERCOCET 5MG/325MG TAB PO PRN (04:40)
[2018-10-04 06:31] LABS: MEAN CORPUSCULAR HEMOGLOBIN 29.8 pg (27.0-33.0); MEAN CORPUSCULAR HGB CONC 33.3 g/dl (32.0-36.5); MEAN CORPUSCULAR VOLUME 89.3 fl (80.0-96.0); PLATELET COUNT, AUTOMATED 240 10^3/uL (150-450); RED BLOOD COUNT 4.03 10^6/uL (4.00-5.40)
[2018-10-04 06:55] LABS: ALBUMIN 2.9 GM/DL (3.2-5.2); ALT/SGPT 239 U/L (12-78); BILIRUBIN,DIRECT 1.5 MG/DL (0.0-0.2); BILIRUBIN,TOTAL 2.1 MG/DL (0.2-1.0); BLOOD UREA NITROGEN 5 MG/DL (7-18); CALCIUM LEVEL 8.5 MG/DL (8.5-10.1); CARBON DIOXIDE LEVEL 26 MEQ/L (21-32); CHLORIDE LEVEL 110 MEQ/L (98-107); CREATININE FOR GFR 0.64 MG/DL (0.55-1.30); GLOMERULAR FILTRATION RATE > 60.0 (>60); GLUCOSE, FASTING 90 MG/DL (70-100); POTASSIUM SERUM 3.8 MEQ/L (3.5-5.1); SODIUM LEVEL 141 MEQ/L (136-145); TOTAL PROTEIN 6.2 GM/DL (6.4-8.2)
[2018-10-04 08:00] VITALS: BP 117/60
[2018-10-04] MEDS: DOCUSATE SODIUM 100 MG CAP PO SCH (08:20)
[2018-10-04] MEDS: diphenhydrAMINE INJ 50MG/ML VIAL (J1200) IV PRN (08:20)
[2018-10-04] MEDS ORDERED: SENO8.6T10 PO (08:30)
[2018-10-04] MEDS ORDERED: PERCOCET PO (08:30)
[2018-10-04] MEDS ORDERED: CETIRIZINE (ZyrTEC) 10 MG TAB PO SCH (09:00)
[2018-10-04] MEDS ORDERED: VITAMIN D 1,000 INTERNATIONAL UNITS TABLET PO SCH (09:00)
[2018-10-04] MEDS: ONDANSETRON 4MG/2ML VIAL (J2405) IV PRN (10:22)
--- NOTE | 2018-10-04 10:31 | DS.PDOC ---
Discharge Summary General Date of Admission Oct 01, 2018 at 08:19 Date of Discharge October 04, 2018 Discharge Summary PCP: KALEY AYALA INPATIENT CONSULTANTS: UROLOGY: DR. VARNER GASTROENTEROLOGY: DR. VIEYRA PROCEDURES DURING THIS ADMISSION: 10/01/18 s/p Cystourethroscopy, left retrograde pyelography, left flexible ureteroscopy with laser fragmentation and extraction of left ureteral calculus, placement of left internal ureteral catheter. 10/03/18 ERCP DISCHARGE DIAGNOSES: NEPHROLITHIASIS HYDROURETERONEPHROSIS CHOLEDOCHOLITHIASIS OBSTRUCTIVE JAUNDICE FATTY LIVER OBESITY BMI 38 S/P GASTRIC SLEEVE POST SINUS BRADYCARDIA HISTORY OF FACTOR V LEIDEN MUTATION DISCHARGE MEDS: PLS SEE BELOW DISCHARGE INSTRUCTIONS: - Avoid aspirin and nonsteroidal anti-inflammatory medicines for 1 week. - Patient has a contact number available for emergencies. The signs and symptoms of potential delayed complications were discussed with the patient. Return to normal activities. - Repeat ERCP in 3 months to remove stent. - Return to GI clinic in [facility] (address [address], [address], [place] [address]) in 4 -- 6 weeks. Please call GI clinic @ [phone] for apppointment date and time. HISTORY OF PRESENTING ILLNESS: Patient is 33-year-old female with past medical history of factor V Leyden deficiency on Lovenox and PCO S presented to ER with complaints of abdominal pain and L. flank pain for the past [address] scan in ER found an 8mm obstructive L. ureteral calculus with mild to moderate hydroureteronephrosis. Patient also reports nausea and chills but otherwise denies any other complaints. HOSPITAL COURSE: L. nephrolithiasis -s/p IVF support and pain control. - Urology consulted. no ice chipos - Zofran for nausea -negative ua. -10/01/18 s/p Cystourethroscopy, left retrograde pyelography, left flexible ureteroscopy with laser fragmentation and extraction of left ureteral calculus, placement of left internal ureteral catheter. Choledocholithiasis with persistent hyperbilirubinemia/jaundice and pruritus and s/p cholecystectomy with overt jaundice, icterus, and c/o ruq and epigastric pain GI, Dr. Vieyra, has been following the patient in the office, and has been consulted. kept NPO for ERCP 10/03/18 mrcp 10/02/18: Common bile but measures 9 mm. Filling defect in the distal common bile duct measures 6-7 mm. Findings consistent with choledocholithiasis should be correlated with biliary chemistries. Minimal intrahepatic biliary dilatation 10/03/18: ERCP Findings: The calender wind up helper film was normal. The esophagus was successfully intubated under direct vision. Examination of the pharynx, larynx and associated structures was normal. A standard esophagogastroduodenoscopy scope was used for the examination of the upper gastrointestinal tract. The scope was passed under direct vision through the upper GI tract. The examined esophagus was normal. Evidence of a sleeve gastrectomy was found in the gastric fundus, in the gastric body and in the gastric antrum. This was characterized by healthy appearing mucosa. The ampulla, duodenal bulb and second portion of the duodenum were normal. The esophagus was successfully intubated under direct vision. The Duodenoscope was later advanced to a normal major papilla in the descending duodenum without detailed examination of the pharynx, larynx and associated structures, and upper GI tract. The upper GI tract was grossly normal. 0.035 inch x 260 cm straight Hydra Jagwire was passed into the biliary tree. The short-nosed traction sphincterotome was passed over the guidewire and the bile duct was then deeply cannulated. Contrast was injected. I personally interpreted the bile duct images. Ductal flow of contrast was adequate. Image quality was adequate. Contrast extended to the entire biliary tree. The main bile duct was diffusely dilated, with a stone causing an obstruction. The largest diameter was 12 mm. The lower third of the main bile duct contained filling defect(s) thought to be a stone. A 2 mm biliary sphincterotomy was made with a monofilament traction (standard) sphincterotome using ERBE electrocautery. There was no post-sphincterotomy bleeding. The biliary tree was swept with a 12 mm balloon starting at the bifurcation. Sludge was swept from the duct. One 10 Fr by 7 cm plastic stent with a single external flap and a single internal flap was placed into the common bile duct. Bile flowed through the stent. The stent was in good position. Pancreatic duct was cannulated with wire but Contrast was not injected. Impression: - Normal esophagus. - A sleeve gastrectomy was found, characterized by healthy appearing mucosa. - Normal ampulla, duodenal bulb and second portion of the duodenum. - A filling defect consistent with a stone was seen on the cholangiogram. - The entire main bile duct was dilated, with a stone causing an obstruction. - The examination was suspicious for choledocholithiasis. A small biliary sphincterotomy was performed. Sludge came out with balloon sweeps. Due to anticoagulation use, sphincterotomy was not extended and a plastic biliary stent was inserted. - The biliary tree was swept and sludge was found. - One plastic stent was placed into the common bile duct. Postop bradycardia tsh wnl. asymptomatic without dizziness, lightheadedness, sob, near syncope, syncope, cyanosis. passed home safety evaluation. EKG no heart blocks. sinus bradycardia. lyme titers pending. Factor V leiden mutation hold asa, NSAID's anticoagulants x 1 wk s/p ERCP w CBD stent. Obesity s/p gastric sleeve BMI 38.1 LAKISHA protocol Fatty liver with abnormal LFTs hepatitis serology negative reviewed lipid profile adrenal adenoma outpt fu. pt adviced NOT to breast feed. Claustrophobia pt requests valium prior to MRCP. disposition: dc 24hrs after ERCP if stable. NPO for now. DVT ppx: lovenox and SCD Code status: Full code DISCHARGE PHYSICAL EXAMINATION: VITALS: PLS SEE BELOW General: No acute distress, Alert Eyes: Normal sclera, EOMI, JENNIFER HENT: Atraumatic, neck supple, moist mucous membranes Cardiovascular: Normal rate, normal rhythm. No murmurs appreciated. Pulmonary: Clear to auscultation b/l, no wheezing GI: Soft, mild tenderness epigastric and R. back tenderness, nondistended Skin: Warm and dry Neuro: CN grossly intact. No focal deficits. Strengths equal b/l. Psych: oriented x 3 LABORATORY DATA, IMAGING STUDIES, MICROBIOLOGY: Please see below. IMAGING: CT Chest Angio- IMPRESSION: 1. There are no pulmonary emboli. 2. There is no aortic dissection or aneurysm. CT abdomen/pelvis w/contrast- IMPRESSION: 1. Disc-shaped anterior abdominal wall hematoma/seroma measures 7.4 x 1.1 x 5.4 cm consistent with recent surgery. 2. There is a diffuse decrease in hepatic parenchymal density, consistent with fatty infiltration. 3. There has been a cholecystectomy. 4. This patient is status post gastric bypass surgery and section. 5. There is an 8 mm. obstructive ureteral calculus located in the proximal left ureter resulting in mild to moderate proximal hydroureteronephrosis. There is no periureteral and perinephric stranding. No urinoma demonstrated. 6. There is increased feces throughout the colon consistent with constipation. mrcp 10/02/18: Common bile but measures 9 mm. Filling defect in the distal common bile duct measures 6-7 mm. Findings consistent with choledocholithiasis should be correlated with biliary chemistries. Minimal intrahepatic biliary dilatation 10/03/18: ERCP Findings: The calender wind up helper film was normal. The esophagus was successfully intubated under direct vision. Examination of the pharynx, larynx and associated structures was normal. A standard esophagogastroduodenoscopy scope was used for the examination of the upper gastrointestinal tract. The scope was passed under direct vision through the upper GI tract. The examined esophagus was normal. Evidence of a sleeve gastrectomy was found in the gastric fundus, in the gastric body and in the gastric antrum. This was characterized by healthy appearing mucosa. The ampulla, duodenal bulb and second portion of the duodenum were normal. The esophagus was successfully intubated under direct vision. The Duodenoscope was later advanced to a normal major papilla in the descending duodenum without detailed examination of the pharynx, larynx and associated structures, and upper GI tract. The upper GI tract was grossly normal. 0.035 inch x 260 cm straight Hydra Jagwire was passed into the biliary tree. The short-nosed traction sphincterotome was passed over the guidewire and the bile duct was then deeply cannulated. Contrast was injected. I personally interpreted the bile duct images. Ductal flow of contrast was adequate. Image quality was adequate. Contrast extended to the entire biliary tree. The main bile duct was diffusely dilated, with a stone causing an obstruction. The largest diameter was 12 mm. The lower third of the main bile duct contained filling defect(s) thought to be a stone. A 2 mm biliary sphincterotomy was made with a monofilament traction (standard) sphincterotome using ERBE electrocautery. There was no post-sphincterotomy bleeding. The biliary tree was swept with a 12 mm balloon starting at the bifurcation. Sludge was swept from the duct. One 10 Fr by 7 cm plastic stent with a single external flap and a single internal flap was placed into the common bile duct. Bile flowed through the stent. The stent was in good position. Pancreatic duct was cannulated with wire but Contrast was not injected. Impression: - Normal esophagus. - A sleeve gastrectomy was found, characterized by healthy appearing mucosa. - Normal ampulla, duodenal bulb and second portion of the duodenum. - A filling defect consistent with a stone was seen on the cholangiogram. - The entire main bile duct was dilated, with a stone causing an obstruction. - The examination was suspicious for choledocholithiasis. A small biliary sphincterotomy was performed. Sludge came out with balloon sweeps. Due to anticoagulation use, sphincterotomy was not extended and a plastic biliary stent was inserted. - The biliary tree was swept and sludge was found. - One plastic stent was placed into the common bile duct. DATE OF PROCEDURE: 10/01/2018 PREOPERATIVE DIAGNOSIS: Left proximal ureteral calculus. POSTOPERATIVE DIAGNOSIS: Left proximal ureteral calculus. PROCEDURE: Cystourethroscopy, left retrograde pyelography, left flexible ureteroscopy with laser fragmentation and extraction of left ureteral calculus, placement of left internal ureteral catheter. SURGEON: Dr. Varner ANESTHESIA: General, laryngeal mask anesthesia. COMPLICATIONS: None. DRAINS: Variable length 6-Armenian left internal ureteral catheter. SPECIMENS: Fragments of calculus from the left ureter submitted for analysis. ESTIMATED BLOOD LOSS: None. BLOOD REPLACED: None. HISTORY: The patient is a 33-year-old female who presents three weeks post- with an 8 mm calculus in the left proximal ureter. The options available for management were discussed with the patient and the decision was made to proceed with ureteroscopy laser fragmentation and extraction of the left ureteral calculus. Procedure was carefully explained to the patient, all of the benefits, risks, and alternatives. Informed consent was obtained. PROCEDURE: After successful anesthetization and satisfactory general anesthesia by LMA the patient was placed in the dorsal lithotomy position on the cystoscopy table using Lv stirrups. Patient was given intravenous Ancef. The patients genitalia were prepped and draped in a sterile manner. A #22-Armenian Olympus cystoscope sheath was placed with obturator in the bladder. Using the 30 degree lens the left ureteral orifice was identified and a left retrograde pyelogram was performed using an 8-Armenian coned tip catheter to inject contrast via the left ureter outline the calculus in the left proximal ureter easily. A 5-Armenian opened end ureteral catheter was then used to advance a guidewire proximal to the calculus. An additional guidewire was passed along side this. The calculus was not dislodged. At this point one of the guidewires was used to introduce a 13-Armenian ureteral assess sheath to just below the level of the calculus in the left ureter. The guidewire and the inner cannula were removed and the Olympus digital ureteroscope was inserted through the access sheath into the ureter wh ere the calculus was easily visualized. The Holmium laser 280 micron fiber was then used to thoroughly fragment the calculus. A small Nitinol basket was used to retrieve the largest fragments. Careful inspection of the ureter demonstrated no points of perforation and only very small fragments in the collecting system of the kidney and ureter. At this point the accessory guidewire was left in place and the sheath was removed. Over the guidewire the cystoscope was then reinserted and a variable length about 6-Armenian left internal ureteral calculus was placed with the proximal end coiled in the renal pelvis. The distal end coiled in the bladder. The bladder was evaluated, the cystoscope was withdrawn. The patient was awakened and transported to the recovery room in satisfactory condition and tolerated the procedure well. DD: KRYSTIAN VARNER MD 10/01/181717 46 DS: LITWI 10/02/18747 <Electronically signed by KRYSTIAN VARNER MD> 10/02/18747 DS2: [~ rep ct labl] [facility] NAME: SATINDER REEDOB: 1985MED REC#: [id number] ROOM: [facility]#: [id number]: KRYSTIAN VARNER MD PATIENT STATUS: ADM INCosign: REPORT #: [id number] : cc: [~ rep ct ivnm] Report of Operation Printed:[~ rep prt dt last][~ rep prt tm last]Page PAGE \* MERGEFORMAT 2 of [employer] \* MERGEFORMAT [address] [address] REPORT OF OPERATION Report of Operation Printed:[~ rep prt dt last][~ rep prt tm last]Page PAGE \* MERGEFORMAT 1 of [employer] \* MERGEFORMAT 2 TIME SPENT ON HOSPITAL DISCHARGE: 35MIN Vital Signs/I&Os Vital Signs Date Time Temp Pulse Resp B/P (MAP) Pulse Ox O2 Delivery O2 Flow Rate FiO2 10/04/18 10:00 85 10/04/18 08:00 96.9 18 117/60 (79) 100 10/03/18 18:15 2 10/01/18 02:04 Room Air I&O- Last 24 Hours up to 6 AM 10/04/18 06:00 Intake Total 4185 ml Output Total 2920 ml Balance 1265 ml Laboratory Data Labs 24H Laboratory Tests 2 10/03/18 20:03: Nucleated Red Blood Cells % (auto) 0.0, Anion Gap 6L, Glomerular Filtration Rate > 60.0, Calcium Level 8.6, Aspartate Amino Transf (AST/SGOT) 63H, Alanine Torres otransferase (ALT/SGPT) 268H, Alkaline Phosphatase 296H, Total Bilirubin 3.6H, Direct Bilirubin 3.0H, Total Protein 6.4, Albumin 3.0L, Albumin/Globulin Ratio 0.88L 10/04/18 06:09: Nucleated Red Blood Cells % (auto) 0.0, Anion Gap 5L, Glomerular Filtration Rate > 60.0, Calcium Level 8.5, Aspartate Amino Transf (AST/SGOT) 42H, Alanine Aminotransferase (ALT/SGPT) 239H, Alkaline Phosphatase 283H, Total Bilirubin 2.1H, Direct Bilirubin 1.5H, Total Protein 6.2L, Albumin 2.9L, Albumin/Globulin Ratio 0.88L, Thyroid Stimulating Hormone (TSH) 1.470 10/04/18 09:26: CBC/BMP Laboratory Tests 10/03/18 20:03 Red Blood Count 4.16, Mean Corpuscular Volume 89.9, Mean Corpuscular Hemoglobin 29.6, Mean Corpuscular Hemoglobin Concent 32.9, Red Cell Distribution Width 14.5 10/04/18 06:09 Red Blood Count 4.03, Mean Corpuscular Volume 89.3, Mean Corpuscular Hemoglobin 29.8, Mean Corpuscular Hemoglobin Concent 33.3, Red Cell Distribution Width 14.5 Discharge Medications Scheduled Bifidobacterium Infantis (Align) 4 Mg Capsule, 4 MG PO DAILY, (Reported) Cetirizine HCl (Cetirizine HCl) 10 Mg Tablet, 10 MG PO DAILY, (Reported) Cholecalciferol (Vitamin D3) (Vitamin D3) 1,000 Unit Tablet, 1,000 UNIT PO DAILY, (Reported) Docusate Sodium (Colace) 100 Mg Cap, 100 MG PO BID, (Reported) Enoxaparin Sodium (Enoxaparin Sodium) 40 Mg/0.4 Ml Syringe, 40 MG SC QHS, (Repo rted) Magnesium Oxide (Magnesium Oxide) 400 Mg Tablet, 400 MG PO BID, (Reported) Qnu724/Iron Fum/Folic/Docusate ( 19 Tablet) 1 Tab Tab, 1 TAB PO QHS, (Reported) Scheduled PRN Cyclobenzaprine HCl (Cyclobenzaprine HCl) 10 Mg Tablet, 10 MG PO TID PRN for MUSCLE SPASMS, (Reported) Fluticasone Propionate (Fluticasone Propionate) 16 Gm [place].susp, 1 SPRAY NA BID PRN for NASAL CONGESTION, (Reported) Oxycodone/Acetaminophen (Oxycodone-Acetaminophen 5-325) 1 Each Tablet, 1 TAB PO Q4HP PRN for MILD/MODERATE PAIN (PS 1-7) no while on percocet Sennosides/Docusate Sodium (Senokot-S Tablet) 1 Each Tablet, 1 TAB PO BIDP PRN for CONSTIPATION Allergies Coded Allergies: fluconazole (Verified Allergy, Intermediate, LIP SWELLING, 08/23/18) levofloxacin (Verified Allergy, Intermediate, HIVES, 08/23/18) MARY RAMIREZ MD Oct 04, 2018 10:24
--- NOTE | 2018-10-05 00:28 | ECGEPIP ---
[facility] Test Date: 2018-10-04 Pat Name: SATINDER REED Department: Room: [place] [address] Gender: Female [employer]: RAHEL : 1985 Requested By: MARY Knight Order Number: [id number] Reading MD: Ady Contreras Measurements Intervals [place] Rate: 39 P: 44 FL: 167 QRS: 9 QRSD: 95 T: 21 QT: 466 QTc: 378 Interpretive Statements SINUS BRADYCARDIA Nonspecific ST-T wave abnormalities- new from tracing done 09-30-18 Electronically Signed on 10-05-2018 0:28:01 EDT by Ady Contreras
[2018-10-06 00:08] LABS: Lyme Disease IgG/IgM Antibodie <0.91 ISR (0.00-0.90); Lyme Disease IgM Ab Quantitati <0.80 index (0.00-0.79)
[2018-10-07 10:08] LABS: CA Oxalate Dihy 40 % (.); COMMENT Note: (.)
== END 2018-10-04 11:25 | disposition home or self-care (01) | DRG 769 ==
LOC: M ED 16:05 → M ED INP 16:06 → M PED 10-01 02:40 → INTOOBSV 10-01 08:19 → OBSVTOIN 10-01 08:19
PROVIDERS: ADMIT Student in an Organized Health Care Education/Training Program; ATTEND General Practice
PROC: 0TC78ZZ Extirpation of Matter from Left Ureter, Via Natural or Artificial Opening Endoscopic (ICD-10-PCS; principal; 2018-10-01 16:00)
PROC: 0FC98ZZ Extirpation of Matter from Common Bile Duct, Via Natural or Artificial Opening Endoscopic (ICD-10-PCS; 2018-10-03)
PROC: 0F798DZ Dilation of Common Bile Duct with Intraluminal Device, Via Natural or Artificial Opening Endoscopic (ICD-10-PCS; 2018-10-03)
DX: O99.89 Other specified diseases and conditions complicating pregnancy, childbirth and the puerperium (principal); D68.2 Hereditary deficiency of other clotting factors; K80.51 Calculus of bile duct without cholangitis or cholecystitis with obstruction; N13.2 Hydronephrosis with renal and ureteral calculous obstruction; O99.13 Other diseases of the blood and blood-forming organs and certain disorders involving the immune mechanism complicating the puerperium; E28.2 Polycystic ovarian syndrome; E66.9 Obesity, unspecified; O99.285 Endocrine, nutritional and metabolic diseases complicating the puerperium; O99.63 Diseases of the digestive system complicating the puerperium; O99.215 Obesity complicating the puerperium; Z68.38 Body mass index [BMI] 38.0-38.9, adult; Z90.49 Acquired absence of other specified parts of digestive tract; Z79.899 Other long term (current) drug therapy; Z88.1 Allergy status to other antibiotic agents; Z88.8 Allergy status to other drugs, medicaments and biological substances; Z98.84 Bariatric surgery status

== ENCOUNTER → 2018-10-16 | Outpatient (REF) | payer OTHER ==
[~2018-10-16] MED LIST changes: +CETI10TA8 PO; +ENOX40IN3 SC; +FLUTISP; +IBUP1TAB7 PO; +MAGN1TAB26 PO; +SENO8.6T10 PO; +VITA-144 PO; +WELLTAB38 PO
== END ==
LOC: M SMT 17:14
PROVIDERS: ATTEND Urology
DX: N20.1 Calculus of ureter (principal)

== ENCOUNTER → 2018-10-17 | Outpatient (CLI) | payer OTHER ==
[~2018-10-17] MED LIST changes: -WELLTAB38 PO
[2018-10-17 14:28] LABS: BASO # 0.1 10^3/uL (0.0-0.2); BASO % 0.9 % (0.0-1.0); EOS # 0.2 10^3/uL (0.0-0.50); EOS % 2.7 % (0.0-3.0); HEMATOCRIT 38.3 % (36.0-47.0); HEMOGLOBIN 12.7 g/dl (12.0-15.5); LYMPH # 1.7 10^3/uL (1.5-4.5); LYMPH % 30.5 % (24.0-44.0); MEAN CORPUSCULAR HEMOGLOBIN 28.8 pg (27.0-33.0); MEAN CORPUSCULAR HGB CONC 33.2 g/dl (32.0-36.5); MEAN CORPUSCULAR VOLUME 86.8 fl (80.0-96.0); MONO # 0.4 10^3/uL (0.0-0.8); MONO % 7.3 % (0.0-5.0); NEUTROPHILS # 3.2 10^3/uL (1.8-7.7); NEUTROPHILS % 58.4 % (36.0-66.0); PLATELET COUNT, AUTOMATED 372 10^3/uL (150-450); RED BLOOD COUNT 4.41 10^6/uL (4.00-5.40); WHITE BLOOD COUNT 5.5 10^3/uL (4.0-10.0)
[2018-10-17 14:44] LABS: INR 1.03; PROTHROMBIN TIME 13.2 SECONDS (11.8-14.0)
[2018-10-17 14:45] LABS: PARTIAL THROMBOPLASTIN TIME 30.9 SECONDS (25.0-38.4)
[2018-10-17 15:01] LABS: ALT/SGPT 47 U/L (12-78); AMYLASE 58 U/L (25-115); BILIRUBIN,DIRECT 0.5 MG/DL (0.0-0.2); BILIRUBIN,TOTAL 0.9 MG/DL (0.2-1.0); BLOOD UREA NITROGEN 14 MG/DL (7-18); CREATININE FOR GFR 0.95 MG/DL (0.55-1.30); GLOMERULAR FILTRATION RATE > 60.0 (>60); LDH LACTATE DEHYDROGENASE 153 U/L (84-246); LIPASE 288 U/L (73-393); TOTAL PROTEIN 7.2 GM/DL (6.4-8.2)
[2018-10-18 10:01] LABS: HEPATITIS B SURFACE ANTIBODY POSITIVE (POSITIVE)
[2018-10-19 00:06] LABS: ANTI-MITOCHONDRIAL ANTIBODY <20.0 Units (0.0-20.0); ANTI-SMOOTH MUSCLE ANTIBODY 3 Units (0-19); CERULOPLASMIN 33.3 mg/dL (19.0-39.0); HAPTOGLOBIN 169 mg/dL (34-200); HEPATITIS A IgG TOTAL Negative (Negative); LIVER-KIDNEY MICROSOMAL ABY <20.1 Units (0.0-20.0)
== END ==
LOC: M LAB 13:48
PROVIDERS: ATTEND Internal Medicine Gastroenterology
DX: R11.2 Nausea with vomiting, unspecified (principal); R10.11 Right upper quadrant pain

== ENCOUNTER → 2018-11-13 | Outpatient (CLI) | payer OTHER ==
[~2018-11-13] MED LIST changes: +WELLTAB38 PO
--- NOTE | 2018-11-14 04:59 | REP ---
Clinical: History of ureteral stone. Technique: Real time quiñonez scale and color evaluation using curved array transducer. Findings: Right kidney is normal in contour, size, echogenicity, and reniform shape without hydronephrosis, nephrolithiasis, cystic or renal mass lesion. Right intrarenal vasculature is grossly unremarkable. Right kidney measures 10.7 x 6.1 x 3.8 cm. Left kidney is normal in contour, size, echogenicity and reniform shape without hydronephrosis, cystic or renal mass lesion. 6 mm echogenic focus in the lower pole without posterior shadowing is likely incidental. Left intrarenal vasculature is grossly unremarkable. Left kidney measures 10.3 x 6.0 x 5.2 cm. Bladder is unremarkable. Impression: Essentially normal renal ultrasound. Electronically Signed by Surya Floyd MD 11/14/2018 04:50 A
== END ==
LOC: M RAD 11:09
PROVIDERS: ATTEND Urology
DX: N20.1 Calculus of ureter (principal)

== ENCOUNTER 2018-11-15 11:38 | Day surgery (SDC) | payer OTHER ==
[~2018-11-15] VITALS: Ht 157.5 cm; Wt 94.8 kg
[~2018-11-15 11:38] MED LIST changes: +LR 1,000 ML IV ONE
[2018-11-15 12:16] LABS: URINE PREG TEST NEGATIVE (NEGATIVE)
[2018-11-15] MEDS ORDERED: SCOPOLAMINE 1MG TRANSDERMAL PATCH As Ordered ONE (12:23)
[2018-11-15] MEDS ORDERED: PROPOFOL 200 MG/20 ML VIAL As Ordered ONE (12:44)
[2018-11-15] MEDS ORDERED: ROCURONIUM BROMIDE 50 MG/5 ML VIAL As Ordered ONE (12:44)
[2018-11-15] MEDS ORDERED: LIDOCAINE 2% INJ 100 MG/5 ML SDV (FOR ANES.) As Ordered ONE (12:44)
[2018-11-15] MEDS ORDERED: ONDANSETRON 4MG/2ML VIAL (J2405) As Ordered ONE (12:44)
[2018-11-15] MEDS ORDERED: dexameTHASONE 4 MG/ML 1ML VIAL (J1100) As Ordered ONE ×2 (12:44→12:59)
[2018-11-15] MEDS ORDERED: MIDAZOLAM INJ 2 MG/2 ML VIAL (J2250) As Ordered ONE (12:47)
[2018-11-15] MEDS ORDERED: fentaNYL 100 MCG/2 ML INJECTION (J3010) As Ordered ONE (12:48)
[2018-11-15] MEDS ORDERED: METOCLOPRAMIDE INJ 10MG/2ML VIAL (J2765) As Ordered ONE (12:58)
[2018-11-15] MEDS ORDERED: SCOPOLAMINE 1MG TRANSDERMAL PATCH TOP ONE ×2 (13:15→13:30)
[2018-11-15] MEDS: ISOVUE-300 61% 50ML VIAL (Q9967) As Ordered ONE ×2 (13:40→14:00)
[2018-11-15] MEDS ORDERED: NEOSTIGMINE 10 MG/10 ML VIAL (J2710) As Ordered ONE (13:45)
[2018-11-15] MEDS ORDERED: GLYCOPYRROLATE INJ 0.2 MG/ML 2 ML VIAL As Ordered ONE (13:45)
--- NOTE | 2018-11-15 14:46 | ROOR ---
Patient Name: Chay Lawton Procedure Date: 11/15/2018 12:06 PM Date of : 1985 Age: 33 Room: [facility] Gender: Female Note Status: Finalized Procedure: ERCP Indications: Bile duct stone(s), Elevated liver enzymes, Biliary stent removal Providers: Romel Thomas MD Referring MD: KALEY ROCHE MD Requesting Provider: Medicines: General Anesthesia Complications: No immediate complications. Procedure: Pre-Anesthesia Assessment: - Prior to the procedure, a History and Physical was performed, and patient medications and allergies were reviewed. The patient is competent. The risks and benefits of the procedure and the sedation options and risks were discussed with the patient. All questions were answered and informed consent was obtained. Patient identification and proposed procedure were verified by the physician, the nurse and the anesthesiologist in the procedure room. Mental Status Examination: alert and oriented. Airway Examination: normal oropharyngeal airway and neck mobility. Respiratory Examination: clear to auscultation. CV Examination: normal. Prophylactic Antibiotics: The patient does not require prophylactic antibiotics. Prior Anticoagulants: The patient has taken no previous anticoagulant or antiplatelet agents. ASA Grade Assessment: II - A patient with mild systemic disease. After reviewing the risks and benefits, the patient was deemed in satisfactory condition to undergo the procedure. The anesthesia plan was to use monitored anesthesia care (MAC). Immediately prior to administration of medications, the patient was re-assessed for adequacy to receive sedatives. The heart rate, respiratory rate, oxygen saturations, blood pressure, adequacy of pulmonary ventilation, and response to care were monitored throughout the procedure. The physical status of the patient was re-assessed after the procedure. The Duodenoscope was introduced through the mouth, and advanced to the duodenum and used to inject contrast into the bile duct. The ERCP was accomplished without difficulty. The patient tolerated the procedure well. Findings: A biliary stent was visible on the senior controls engineer film. The esophagus was successfully intubated under direct vision. Examination of the pharynx, larynx and associated structures was normal. The upper GI tract was traversed under direct vision without detailed examination. 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 This was characterized by healthy appearing mucosa and an intact staple line. One plastic stent originating in the biliary tree was emerging from the major papilla. The stent was visibly patent. One stent was removed from the biliary tree using a snare. A 0.035 inch x 260 cm straight Hydra Jagwire was passed into the biliary tree. The bile duct was then deeply cannulated over the guidewire. Contrast was injected. I personally interpreted the bile duct images. Ductal flow of contrast was adequate. Image quality was adequate. Contrast extended to the entire biliary tree. The main bile duct was moderately dilated, with a stone causing an obstruction. The largest diameter was 12 mm. The lower third of the main bile duct contained filling defect(s) thought to be a stone and sludge. Biliary sphincterotomy was made with a monofilament traction (standard) sphincterotome using ERBE electrocautery. There was no post-sphincterotomy bleeding. The biliary tree was swept with a 12 mm balloon starting at the bifurcation. Sludge was swept from the duct. All stones were removed. Occlusion cholangiogram at the end of the procedure did not show any residual filling defects. Pancreatic duct was neither cannulated nor opacified. Impression: - A sleeve gastrectomy was found, characterized by healthy appearing mucosa and an intact staple line. - One visibly patent stent from the biliary tree was seen in the major papilla. - A filling defect consistent with a stone and sludge was seen on the cholangiogram. - The entire main bile duct was moderately dilated, with a stone causing an obstruction. - Choledocholithiasis was found. Complete removal was accomplished by biliary sphincterotomy and balloon extraction. - One stent was removed from the biliary tree. - A biliary sphincterotomy was performed. - The biliary tree was swept. Recommendation: - The patient will be observed post-procedure, until all discharge criteria are met. - Patient has a contact number available for emergencies. The signs and symptoms of potential delayed complications were discussed with the patient. Return to normal activities tomorrow. Written discharge instructions were provided to the patient. - Avoid aspirin and nonsteroidal anti-inflammatory medicines for 1 day. - Clear liquid diet today, then advance as tolerated to resume previous diet. - Use Prilosec (omeprazole) 40 mg PO daily for 6 weeks. - Return to GI clinic in [facility] (address [address] [place] [address], [place] [address]) in 4 -- 6 weeks. Please call GI clinic @ [phone] for apppointment date and time. - Telephone GI clinic if symptomatic today. - Return to primary care physician. Romel Thomas MD Romel Thomas MD 11/15/2018 2:46:11 PM Electronically signed by Romel Thomas MD Number of Addenda: 0 Note Initiated On: 11/15/2018 12:06 PM Estimated Blood Loss: Estimated blood loss was minimal.
[2018-11-15] MEDS ORDERED: PIPERACILLIN/TAZOBACTAM SOD 4.5 GM in D5W MINI-BAG PLUS 50 ML IV ONE (15:00)
--- NOTE | 2018-11-15 15:11 | REP ---
C-ARM VIEWS DURING ERCP: Multiple C-Arm views are performed during ERCP exam. There is partial opacification on some of the images of the common bile duct. Catheter manipulation is performed and a balloon is inflated on some of the images. Fluoroscopy time: 59.3 seconds. Electronically Signed by Grant Thakkar MD 11/19/2018 05:36 P
[2018-11-15] MEDS ORDERED: LR 1,000 ML IV SCH (15:15)
[2018-11-15] MEDS ORDERED: ONDANSETRON 4MG/2ML VIAL (J2405) IV PRN (15:15)
[2018-11-15] MEDS ORDERED: METOCLOPRAMIDE INJ 10MG/2ML VIAL (J2765) IV PRN (15:15)
[2018-11-15] MEDS ORDERED: MEPERIDINE INJ 25 MG/ML VIAL (J2175) IV PRN (15:15)
[2018-11-15] MEDS ORDERED: PERCOCET 5MG/325MG TAB PO PRN (15:15)
[2018-11-15] MEDS ORDERED: fentaNYL 100 MCG/2 ML INJECTION (J3010) IV PRN (15:15)
[2018-11-15] MEDS ORDERED: LR 1,500 ML IV ONE (15:30)
[2018-11-15 16:45] VITALS: BP 105/64
== END 2018-11-15 16:50 | disposition home or self-care (01) ==
LOC: M SDC 11:38
PROVIDERS: ATTEND Internal Medicine Gastroenterology
DX: K80.51 Calculus of bile duct without cholangitis or cholecystitis with obstruction (principal); R74.8 Abnormal levels of other serum enzymes; R93.2 Abnormal findings on diagnostic imaging of liver and biliary tract; Z98.84 Bariatric surgery status; Z96.89 Presence of other specified functional implants; Z46.59 Encounter for fitting and adjustment of other gastrointestinal appliance and device; K76.9 Liver disease, unspecified; F32.9 Major depressive disorder, single episode, unspecified; J45.909 Unspecified asthma, uncomplicated; Z88.1 Allergy status to other antibiotic agents; Z79.899 Other long term (current) drug therapy
CPT/HCPCS: 43262; 43264; 43275; 74330; 84703; J1100; J2250; J2405; J2543; J2710; J2765; J3010; Q9967

== ENCOUNTER 2018-12-04 10:37 | Day surgery (SDC) | payer OTHER ==
[~2018-12-04] VITALS: Ht 157.5 cm; Wt 95.3 kg
[2018-12-04 11:07] LABS: HEMATOCRIT 41.5 % (36.0-47.0); MEAN CORPUSCULAR HEMOGLOBIN 29.9 pg (27.0-33.0); MEAN CORPUSCULAR HGB CONC 33.7 g/dl (32.0-36.5); MEAN CORPUSCULAR VOLUME 88.5 fl (80.0-96.0); PLATELET COUNT, AUTOMATED 273 10^3/uL (150-450); RED BLOOD COUNT 4.69 10^6/uL (4.00-5.40)
[2018-12-04 11:48] LABS: HCG, SERUM QUALITATIVE NEGATIVE (NEGATIVE)
[2018-12-04] MEDS ORDERED: SCOPOLAMINE 1MG TRANSDERMAL PATCH As Ordered ONE (12:40)
[2018-12-04] MEDS ORDERED: fentaNYL 100 MCG/2 ML INJECTION (J3010) As Ordered ONE (15:09)
[2018-12-04] MEDS ORDERED: dexameTHASONE 4 MG/ML 1ML VIAL (J1100) As Ordered ONE (15:09)
[2018-12-04] MEDS ORDERED: MIDAZOLAM INJ 2 MG/2 ML VIAL (J2250) As Ordered ONE (15:09)
[2018-12-04] MEDS ORDERED: LIDOCAINE 2% INJ 100 MG/5 ML SDV (FOR ANES.) As Ordered ONE (15:09)
[2018-12-04] MEDS ORDERED: ONDANSETRON 4MG/2ML VIAL (J2405) As Ordered ONE (15:09)
[2018-12-04] MEDS ORDERED: KETOROLAC 60 MG/2 ML VIAL (J1885) As Ordered ONE (15:09)
[2018-12-04] MEDS ORDERED: PROPOFOL 200 MG/20 ML VIAL As Ordered ONE ×2 (15:09→15:26)
[2018-12-04] MEDS ORDERED: SILVER NITRATE APPLICATOR As Ordered ONE (15:35)
[2018-12-04] MEDS ORDERED: MEPERIDINE INJ 25 MG/ML VIAL (J2175) IV PRN (16:15)
[2018-12-04] MEDS ORDERED: ONDANSETRON 4MG/2ML VIAL (J2405) IV PRN (16:15)
[2018-12-04] MEDS ORDERED: LR 1,000 ML IV SCH (16:15)
[2018-12-04] MEDS ORDERED: PERCOCET 5MG/325MG TAB PO PRN ×2 (16:15)
[2018-12-04] MEDS ORDERED: KETOROLAC 30 MG/ML VIAL (J1885) IV PRN (16:15)
[2018-12-04] MEDS ORDERED: METOCLOPRAMIDE INJ 10MG/2ML VIAL (J2765) IV PRN (16:15)
[2018-12-04] MEDS ORDERED: fentaNYL 100 MCG/2 ML INJECTION (J3010) IV PRN (16:15)
[2018-12-04 16:35] VITALS: BP 115/73
[2018-12-05] MEDS ORDERED: LR 1,000 ML IV ONE (06:00)
--- NOTE | 2018-12-06 10:53 | RO ---
DATE OF PROCEDURE: 12/04/2018 PREPROCEDURE DIAGNOSIS: Inability to place IUD in the office. POSTPROCEDURE DIAGNOSIS: Inability to place IUD in the office. PROCEDURE: ParaGard IUD insertion. SURGEON: Braulio Pearson DO OUTFITTER CABIN: None. ANESTHESIA: MAC. FLUIDS: 500 mL of lactated Ringers URINE OUTPUT: 5 mL. ESTIMATED BLOOD LOSS: 1 mL. COMPLICATIONS: None. ANTIBIOTICS: None indicated. FINDINGS: Slightly stenotic cervical canal. DESCRIPTION OF PROCEDURE: Description of the risks, benefits, indications and alternatives of the procedure were reviewed with the patient and informed consent was obtained. The patient was then taken to the operating room where she was placed in lithotomy position. The patient was then prepped and draped in the usual sterile fashion and the bladder was drained using in and out catheter. Surgical time out was then performed, and the patient, site and planned procedure were verified with the operative team. Sterile speculum was then placed into the vagina and the cervix was visualized. A single toothed tenaculum was used to grasp the anterior lip of the cervix. The cervical canal was slightly stenotic and dilator was used to dilate the cervix. The cervix was dilated to 10-Khmer with a Isak dilator. Uterus was then able to be sounded to 8 cm in length. ParaGard IUD was then opened on the field and the cavity length was set. ParaGard IUD was then inserted into the uterine canal without difficulty per the plunger shovel operator guidelines. The ParaGard strings were then cut 3 cm from the external cervical os. Single toothed tenaculum was then removed from the anterior lip of the cervix. Hemostasis was achieved at the tenaculum sites with silver nitrate sticks. Inspection of the cervix revealed excellent hemostasis. Sterile speculum was then removed. Vaginal sweep was then performed, which confirms no retained foreign objects remained in the vagina. The patient tolerated the procedure well. Sponge, instrument and needle counts were correct times two. The patient was awakened and taken to the postanesthesia care unit (PACU) in stable condition.
== END 2018-12-04 16:40 | disposition home or self-care (01) ==
LOC: M SDC 10:37
PROVIDERS: ATTEND Obstetrics & Gynecology
DX: Z30.430 Encounter for insertion of intrauterine contraceptive device (principal); F32.9 Major depressive disorder, single episode, unspecified; Z88.1 Allergy status to other antibiotic agents; Z79.899 Other long term (current) drug therapy; Z87.891 Personal history of nicotine dependence; K76.0 Fatty (change of) liver, not elsewhere classified
CPT/HCPCS: 36415; 58300; 84703; 85027; J1100; J1885; J2250; J2405; J3010

== ENCOUNTER → 2019-01-23 | Outpatient (CLI) | payer OTHER ==
[~2019-01-23] MED LIST changes: -LR 1,000 ML IV ONE
--- NOTE | 2019-01-23 13:21 | REP ---
RIGHT BREAST ULTRASOUND: Real-time sonographic evaluation of the right breast performed in the region of 3 to 5 o'clock where there is reportedly a palpable lump. Dense fibroglandular tissue is seen. No cystic or solid nodule is seen. There are minimally dilated ducts in the right retroareolar region. IMPRESSION: No suspicious cystic or solid mass at the site of the palpable lump between 3 and 5 o'clock in the right breast. Minimally dilated ducts are seen in the right retroareolar region. ACR 2 benign. Electronically Signed by Grant Thakkar MD 01/23/2019 05:56 P
== END ==
LOC: M RAD 11:26
PROVIDERS: ATTEND Obstetrics & Gynecology
DX: N63.0 Unspecified lump in unspecified breast (principal)

== ENCOUNTER → 2019-04-29 | Outpatient (REF) | payer OTHER | LOC: M SFHCLERA 20:29 | PROVIDERS: ATTEND Physician Assistant | DX: R10.9 Unspecified abdominal pain (principal) | CPT/HCPCS: 81002; 87086; G0463 ==

== ENCOUNTER 2019-06-02 17:26 | Emergency (ER) | payer OTHER ==
[~2019-06-02] VITALS: Ht 157.5 cm; Wt 100.0 kg
[2019-06-02 19:42] LABS: BASO % 0.2 % (0.0-1.0); EOS % 0.1 % (0.0-3.0); HEMOGLOBIN 15.3 g/dl (12.0-15.5); LYMPH # 0.7 10^3/uL (1.5-5.0); LYMPH % 7.8 % (24.0-44.0); MEAN CORPUSCULAR HEMOGLOBIN 29.1 pg (27.0-33.0); MEAN CORPUSCULAR HGB CONC 32.6 g/dl (32.0-36.5); MEAN CORPUSCULAR VOLUME 89.5 fl (80.0-96.0); MONO # 0.4 10^3/uL (0.0-0.8); MONO % 4.3 % (0.0-5.0); NEUTROPHILS # 7.2 10^3/uL (1.5-8.5); NEUTROPHILS % 87.4 % (36.0-66.0); PLATELET COUNT, AUTOMATED 331 10^3/uL (150-450); RED BLOOD COUNT 5.25 10^6/uL (4.00-5.40); WHITE BLOOD COUNT 8.3 10^3/uL (4.0-10.0)
[2019-06-02] MEDS ORDERED: ONDANSETRON 4MG/2ML VIAL (J2405) IV ONE (19:45)
[2019-06-02] MEDS ORDERED: PANTOPRAZOLE 40MG INJ (PROTONIX) (C9113) IV ONE (19:45)
[2019-06-02] MEDS ORDERED: NS 1,000 ML IV ONE (19:45)
[2019-06-02 20:05] LABS: ALBUMIN 4.6 GM/DL (3.2-5.2); ALT/SGPT 37 U/L (12-78); BILIRUBIN,DIRECT 0.3 MG/DL (0.0-0.2); BILIRUBIN,TOTAL 1.3 MG/DL (0.2-1.0); BLOOD UREA NITROGEN 13 MG/DL (7-18); CALCIUM LEVEL 9.1 MG/DL (8.5-10.1); CARBON DIOXIDE LEVEL 26 MEQ/L (21-32); CHLORIDE LEVEL 106 MEQ/L (98-107); CREATININE FOR GFR 0.86 MG/DL (0.55-1.30); GLOMERULAR FILTRATION RATE > 60.0 (>60); GLUCOSE, FASTING 101 MG/DL (70-100); LIPASE 98 U/L (73-393); POTASSIUM SERUM 3.6 MEQ/L (3.5-5.1); SODIUM LEVEL 140 MEQ/L (136-145); TOTAL PROTEIN 7.9 GM/DL (6.4-8.2)
[2019-06-02 20:32] LABS: HCG, SERUM QUALITATIVE NEGATIVE (NEGATIVE)
[2019-06-02 20:40] LABS: INFLUENZA A AMPLIFICATION NEGATIVE (NEGATIVE); INFLUENZA B AMPLIFICATION NEGATIVE (NEGATIVE)
[2019-06-02] MEDS ORDERED: ZOFR4TAB16 PO (20:58)
[2019-06-02] MEDS ORDERED: ACETAMINOPHEN 325 MG TAB PO ONE (21:15)
[2019-06-02 21:20] VITALS: BP 123/75
== END 2019-06-02 21:35 | disposition home or self-care (01) ==
LOC: M ED 17:26
DX: A08.4 Viral intestinal infection, unspecified (principal); Z98.84 Bariatric surgery status; Z79.899 Other long term (current) drug therapy; Z88.1 Allergy status to other antibiotic agents; Z88.8 Allergy status to other drugs, medicaments and biological substances
CPT/HCPCS: 80048; 80076; 81001; 83690; 84703; 85025; 87502; 96361; 96374; 96375; 99284; C9113; J2405

== ENCOUNTER → 2019-06-10 | Outpatient (CLI) | payer OTHER ==
[~2019-06-10] MED LIST changes: +E-Z-GAS II EFFERVESCENT PACKET (SODIUM BICARB./CITRIC ACID/SIMETHICONE) As Ordered ONE; +E-Z-HD 98% w/w 340GM SUSP BTL As Ordered ONE; +E-Z-PAQUE 96% w/w SUSP 176GM BTL As Ordered ONE; +ZOFR4TAB16 PO
--- NOTE | 2019-06-10 16:54 | REP ---
Upper GI with SBFT The procedure was performed by KATIE Campos, under the the direct supervision of Dr. Longoria. The images were reviewed with Dr. Longoria. The plate glass installer helper film shows no organomegaly or pathological masses. The intestinal gas pattern appears normal. There are surgical salomón in the right upper quadrant. There is an IUD visualized in the pelvis. Liquid barium was given in the erect position as well as in the prone oblique position in order to perform a single contrast upper GI examination, due to the patient's previous gastric bypass surgery. The oral and pharyngeal stages of deglutition were unremarkable. Esophageal transport is efficient and there is no esophagitis, stricture, or mucosal ring noted. However tertiary contractions were visualized. There is no hiatal hernia. Gastroesophageal reflux the level of the montez was visualized. The stomach deleon are normally outlined. The rugal folds are smooth and regular. There is no gastritis, neoplasm, or ulcer disease noted. The duodenal deleon are normally outlined. The mucosal folds are smooth and regular. There is no duodenitis, peptic ulcer disease, or neoplasm noted. The visualized portion of the proximal small bowel appears normal in course and caliber. The barium column was followed through the small bowel to the level of the terminal ileum. Small bowel transit time was approximately 170 minutes. During fluoroscopy gentle palpation shows all loops are freely mobile and pliable. There are no fixed or angulated loops. The small bowel mucosal pattern is normal in course and caliber. There is no transition to set suggest a partial small-bowel obstruction. Spot filming of the terminal ileum shows it to be unremarkable. Impression: 1. Tertiary contractions. 2. Gastroesophageal reflux to the level of the montez. 0.9 minutes of fluoroscopy time was utilized for this procedure. Some fluoroscopic images are performed with last image hold technology. These images require no additional radiation. Reviewed by KATIE Ji 06/10/2019 03:54 P Electronically Signed by Patrick Longoria MD 06/10/2019 04:46 P
== END ==
LOC: M RAD 07:55
PROVIDERS: ATTEND Internal Medicine Gastroenterology
DX: Z98.84 Bariatric surgery status (principal)

== ENCOUNTER 2019-07-04 11:37 | Day surgery (SDC) | payer OTHER ==
[~2019-07-04] VITALS: Ht 157.5 cm; Wt 102.1 kg
[~2019-07-04 11:37] MED LIST changes: +CETI10CA2 PO; -E-Z-GAS II EFFERVESCENT PACKET (SODIUM BICARB./CITRIC ACID/SIMETHICONE) As Ordered ONE; -E-Z-HD 98% w/w 340GM SUSP BTL As Ordered ONE; -E-Z-PAQUE 96% w/w SUSP 176GM BTL As Ordered ONE; +NS 1,000 ML IV ONE; +PROM25SU PR; +VITA500079 PO; +propofoL 200 MG/20 ML VIAL As Ordered ONE
[2019-07-04] MEDS ORDERED: ONDANSETRON 4MG/2ML VIAL (J2405) As Ordered ONE (12:36)
--- NOTE | 2019-07-04 13:24 | ROOR ---
Patient Name: Chay Lawton Procedure Date: 07/04/2019 12:33 PM Date of : 1985 Age: 34 Room: [facility] Gender: Female Note Status: Finalized Procedure: Upper GI endoscopy Indications: Dyspepsia, Suspected gastro-esophageal reflux disease Providers: Romel Thomas MD Referring MD: KALEY Requesting Provider: Medicines: Monitored Anesthesia Care Complications: No immediate complications. Procedure: Pre-Anesthesia Assessment: - Prior to the procedure, a History and Physical was performed, and patient medications and allergies were reviewed. The patient is competent. The risks and benefits of the procedure and the sedation options and risks were discussed with the patient. All questions were answered and informed consent was obtained. Patient identification and proposed procedure were verified by the physician, the nurse and the anesthesiologist in the procedure room. Mental Status Examination: alert and oriented. Airway Examination: normal oropharyngeal airway and neck mobility. Respiratory Examination: clear to auscultation. CV Examination: normal. Prophylactic Antibiotics: The patient does not require prophylactic antibiotics. Prior Anticoagulants: The patient has taken no previous anticoagulant or antiplatelet agents. ASA Grade Assessment: II - A patient with mild systemic disease. After reviewing the risks and benefits, the patient was deemed in satisfactory condition to undergo the procedure. The anesthesia plan was to use monitored anesthesia care (MAC). Immediately prior to administration of medications, the patient was re-assessed for adequacy to receive sedatives. The heart rate, respiratory rate, oxygen saturations, blood pressure, adequacy of pulmonary ventilation, and response to care were monitored throughout the procedure. The physical status of the patient was re-assessed after the procedure. The Endoscope was introduced through the mouth, and advanced to the second part of duodenum. The upper GI endoscopy was accomplished without difficulty. The patient tolerated the procedure well. Findings: The examined esophagus was normal. The Z-line was regular and was found 40 cm from the incisors. 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 This was characterized by healthy appearing mucosa and an intact staple line. Two biopsies were obtained with cold forceps for histology in the gastric antrum, as well as three biopsies in the gastric body. Verification of patient identification for the specimen was done by the physician and nurse using the patient's name, date and medical record number. Estimated blood loss was minimal. The duodenal bulb and second portion of the duodenum were normal. The GIL capsule with delivery system was introduced through the mouth and advanced into the esophagus, such that the GIL pH capsule was positioned 34 cm from the incisors, which was 6 cm proximal to the GE junction. Suction was applied to the well of the GIL pH capsule to suck in the adjacent mucosa of the esophagus using the external vacuum pump set at a minimum vacuum pressure of 550 mmHg for 30 seconds. The GIL pH capsule was then deployed by depressing the plunger on top of the handle to advance the locking pin into the mucosa, thereby attaching the capsule to the esophagus. The plunger was then rotated a quarter turn clockwise to release the capsule from the delivery system. The delivery system was then withdrawn. Endoscopy was utilized for probe placement and diagnostic evaluation. The scope was reinserted to evaluate placement of the GIL capsule. Visualization showed the GIL capsule to be in an appropriate position. Impression: - Normal esophagus. - Z-line regular, 40 cm from the incisors. - A sleeve gastrectomy was found, characterized by healthy appearing mucosa and an intact staple line. - Normal duodenal bulb and second portion of the duodenum. - Biopsies performed in the gastric antrum and in the gastric body. - The GIL pH capsule was positioned 34 cm from the incisors, which was 6 cm proximal to the GE junction. Recommendation: - Patient has a contact number available for emergencies. The signs and symptoms of potential delayed complications were discussed with the patient. Return to normal activities tomorrow. Written discharge instructions were provided to the patient. - Resume previous diet. - Continue present medications. - Follow an antireflux regimen. - Await pathology results. - Telephone GI clinic for pathology results in 2 weeks. - Return to referring physician as previously scheduled. Romel Thomas MD Romel Thomas MD 07/04/2019 1:23:34 PM Electronically signed by Romel Thomas MD Number of Addenda: 0 Note Initiated On: 07/04/2019 12:33 PM Estimated Blood Loss: Estimated blood loss was minimal.
[2019-07-04 13:25] VITALS: BP 121/81
== END 2019-07-04 13:36 | disposition home or self-care (01) ==
LOC: M OPP 11:37
PROVIDERS: ATTEND Internal Medicine Gastroenterology
DX: R10.13 Epigastric pain (principal); K21.9 Gastro-esophageal reflux disease without esophagitis; D13.1 Benign neoplasm of stomach; F32.9 Major depressive disorder, single episode, unspecified; F41.9 Anxiety disorder, unspecified; G43.909 Migraine, unspecified, not intractable, without status migrainosus; Z98.84 Bariatric surgery status; Z88.1 Allergy status to other antibiotic agents; Z88.8 Allergy status to other drugs, medicaments and biological substances; Z79.899 Other long term (current) drug therapy
CPT/HCPCS: 43239; 88305; J2405

== ENCOUNTER 2019-07-13 13:58 | Emergency (ER) | payer OTHER ==
[~2019-07-13] VITALS: Ht 157.5 cm; Wt 102.1 kg
[~2019-07-13 13:58] MED LIST changes: -[UNRECOGNIZED DRUG - OTHER] PO
[2019-07-13 14:05] VITALS: BP 152/86
[2019-07-13] MEDS ORDERED: [UNRECOGNIZED DRUG - OTHER] PO (14:48)
[2019-07-13] MEDS ORDERED: GI COCKTAIL 50ML BTL(HYOSCYAMINE/MAALOX/LIDOCAINE VISCOUS)(1:3:1) PO ONE (15:00)
== END 2019-07-13 15:02 | disposition home or self-care (01) ==
LOC: M ED 13:58
DX: T18.198A Other foreign object in esophagus causing other injury, initial encounter (principal); Z79.899 Other long term (current) drug therapy; Z88.8 Allergy status to other drugs, medicaments and biological substances; Z97.8 Presence of other specified devices; Y92.9 Unspecified place or not applicable
CPT/HCPCS: 70360; 71046; 99283; G0463

== ENCOUNTER → 2019-07-13 | Outpatient (CLI) | payer OTHER ==
[~2019-07-13] MED LIST changes: -NS 1,000 ML IV ONE; +[UNRECOGNIZED DRUG - OTHER] PO; -propofoL 200 MG/20 ML VIAL As Ordered ONE
--- NOTE | 2019-07-13 13:25 | REP ---
Clinical: Chest pain . Comparison: None . Technique: PA and lateral. Findings: The mediastinum and cardiac silhouette are normal. The lung brothers are clear and without acute consolidation, effusion, or pneumothorax. The skeletal structures are intact and normal. Metallic/electric foreign body in the mid esophagus measures approximately 3.5 cm in length and 5 mm diameter. Impression: 1. No acute cardiopulmonary process. 2. Metallic/selected foreign body in the mid esophagus. Electronically Signed by Surya Floyd MD 07/13/2019 01:16 P
--- NOTE | 2019-07-13 13:27 | REP ---
Clinical: Pain with swallowing. Technique: AP and lateral soft tissue neck radiographs. Findings: Visualized oropharyngeal and upper tracheal airway appears patent and normal. Precervical soft tissues are normal and without swelling or abnormal gas. No obvious stenosis, mass or mass effect noted. Surrounding soft tissues are unremarkable. No foreign body identified. Osseous structures are intact and within normal limits. Impression: Normal soft tissue neck radiographs. Electronically Signed by Surya Floyd MD 07/13/2019 01:18 P
== END ==
LOC: M LRY 12:39
PROVIDERS: ATTEND Physician Assistant
DX: T18.198A Other foreign object in esophagus causing other injury, initial encounter (principal); R07.9 Chest pain, unspecified; R07.0 Pain in throat; Z98.890 Other specified postprocedural states

== ENCOUNTER → 2019-07-24 | Outpatient (CLI) | payer OTHER ==
[~2019-07-24] MED LIST changes: +[UNRECOGNIZED DRUG - OTHER] PO
[2019-07-24 13:51] LABS: BASO % 0.9 % (0.0-1.0); EOS # 0.1 10^3/uL (0.0-0.5); HEMATOCRIT 41.1 % (36.0-47.0); HEMOGLOBIN 13.7 g/dl (12.0-15.5); LYMPH # 1.5 10^3/uL (1.5-5.0); LYMPH % 34.3 % (24.0-44.0); MEAN CORPUSCULAR HEMOGLOBIN 29.8 pg (27.0-33.0); MEAN CORPUSCULAR HGB CONC 33.3 g/dl (32.0-36.5); MEAN CORPUSCULAR VOLUME 89.3 fl (80.0-96.0); MONO # 0.3 10^3/uL (0.0-0.8); MONO % 6.3 % (0.0-5.0); NEUTROPHILS # 2.5 10^3/uL (1.5-8.5); NEUTROPHILS % 56.3 % (36.0-66.0); PLATELET COUNT, AUTOMATED 271 10^3/uL (150-450); WHITE BLOOD COUNT 4.5 10^3/uL (4.0-10.0)
[2019-07-24 14:16] LABS: ALBUMIN 4.2 GM/DL (3.2-5.2); ALT/SGPT 42 U/L (12-78); BILIRUBIN,DIRECT 0.1 MG/DL (0.0-0.2); BILIRUBIN,TOTAL 0.5 MG/DL (0.2-1.0); BLOOD UREA NITROGEN 9 MG/DL (7-18); CREATININE FOR GFR 0.67 MG/DL (0.55-1.30); GLOMERULAR FILTRATION RATE > 60.0 (>60); TOTAL PROTEIN 7.3 GM/DL (6.4-8.2)
--- NOTE | 2019-07-24 14:25 | REP ---
CHEST, TWO VIEWS: COMPARISON: 07/13/2019 There is no evidence of acute infiltrate. No pleural effusion is seen. The heart is normal in size. The mediastinal silhouette is unremarkable. The visualized osseous structures are intact. The metallic foreign body in the region of the mid esophagus is no longer visualized. IMPRESSION: No acute pulmonary disease. The metallic foreign body in the region of the mid esophagus is no longer visualized. Electronically Signed by Grant Thakkar MD 07/24/2019 03:10 P
--- NOTE | 2019-07-24 14:27 | REP ---
KUB ABDOMEN AND PELVIS: KUB film of the abdomen and pelvis is performed. Metallic clips are again seen in the right upper quadrant. IUD is seen centrally in the pelvis. No other radiopaque foreign body is seen. Bowel gas pattern is nonobstructive. IMPRESSION: Metallic clips right upper quadrant status post cholecystectomy. IUD in the pelvis. No other radiopaque foreign body. Electronically Signed by Grant Thakkar MD 07/24/2019 03:10 P
== END ==
LOC: M LAB 12:03
PROVIDERS: ATTEND Internal Medicine Gastroenterology
DX: K21.9 Gastro-esophageal reflux disease without esophagitis (principal); K92.0 Hematemesis; T18.108A Unspecified foreign body in esophagus causing other injury, initial encounter; X58.XXXA Exposure to other specified factors, initial encounter; Y92.89 Other specified places as the place of occurrence of the external cause; Z97.5 Presence of (intrauterine) contraceptive device

== ENCOUNTER 2019-09-07 17:19 | Emergency (ER) | payer OTHER ==
[~2019-09-07] VITALS: Ht 157.5 cm; Wt 100.0 kg
[~2019-09-07 17:19] MED LIST changes: +CYCL-707 PO; -CYCL10TA PO; +VITAD1000T PO
[2019-09-07] MEDS ORDERED: BUPR150T3 (17:28)
[2019-09-07] MEDS ORDERED: WELLTAB40 (17:28)
[2019-09-07] MEDS ORDERED: FAMO1TAB11 (17:28)
[2019-09-07] MEDS ORDERED: ACETAMINOPHEN 325 MG TAB PO ONE (17:45)
[2019-09-07 18:20] VITALS: BP 131/69
--- NOTE | 2019-09-08 02:32 | REP ---
Clinical: Nontraumatic right foot pain Technique: AP, lateral, bilateral oblique views right foot . Findings: The osseous structures and joint spaces are intact and normal. Incidental small calcaneal heal spur noted. There is no evidence for acute fracture or dislocation. Surrounding soft tissues are unremarkable. No subcutaneous emphysema, calcifications or radiodense foreign body. Impression: Essentially normal age-appropriate right foot radiographs. Electronically Signed by Surya Floyd MD 09/08/2019 02:24 A
== END 2019-09-07 18:51 | disposition home or self-care (01) ==
LOC: M ED 17:19
DX: S90.31XA Contusion of right foot, initial encounter (principal); S90.811A Abrasion, right foot, initial encounter; W22.8XXA Striking against or struck by other objects, initial encounter; Y92.89 Other specified places as the place of occurrence of the external cause; M77.31 Calcaneal spur, right foot; E28.2 Polycystic ovarian syndrome; K21.9 Gastro-esophageal reflux disease without esophagitis; F33.9 Major depressive disorder, recurrent, unspecified; F41.9 Anxiety disorder, unspecified; D68.59 Other primary thrombophilia; Z86.718 Personal history of other venous thrombosis and embolism; Z79.899 Other long term (current) drug therapy; Z88.1 Allergy status to other antibiotic agents; Z88.8 Allergy status to other drugs, medicaments and biological substances

== ENCOUNTER 2020-04-14 17:40 | Emergency (ER) | payer OTHER ==
[~2020-04-14] VITALS: Ht 157.5 cm; Wt 84.3 kg
[~2020-04-14 17:40] MED LIST changes: +BUPR150T3; +D31000TA2 PO; +FAMO1TAB11; -VITAD1000T PO; +WELLTAB40
[2020-04-14] MEDS ORDERED: SUCR1TAB56 (17:52)
[2020-04-14] MEDS ORDERED: VALA1TAB5 (17:52)
[2020-04-14] MEDS ORDERED: OMEP-221 (17:52)
[2020-04-14] MEDS ORDERED: NS 1,000 ML IV ONE (18:30)
[2020-04-14] MEDS ORDERED: KETOROLAC 30 MG/ML 1ML VIAL IV ONE (18:30)
[2020-04-14] MEDS ORDERED: ONDANSETRON 4MG/2ML VIAL IV ONE (18:30)
[2020-04-14 18:35] LABS: BASO # 0.1 10^3/uL (0.0-0.2); BASO % 0.9 % (0.0-1.0); EOS # 0.1 10^3/uL (0.0-0.5); EOS % 1.2 % (0.0-3.0); HEMATOCRIT 40.5 % (36.0-47.0); HEMOGLOBIN 12.9 g/dl (12.0-15.5); LYMPH # 1.8 10^3/uL (1.5-5.0); LYMPH % 31.6 % (24.0-44.0); MEAN CORPUSCULAR HGB CONC 31.9 g/dl (32.0-36.5); MONO # 0.3 10^3/uL (0.0-0.8); MONO % 5.8 % (0.0-5.0); NEUTROPHILS # 3.4 10^3/uL (1.5-8.5); NEUTROPHILS % 60.3 % (36.0-66.0); PLATELET COUNT, AUTOMATED 310 10^3/uL (150-450); WHITE BLOOD COUNT 5.7 10^3/uL (4.0-10.0)
[2020-04-14 18:53] LABS: ALBUMIN 4.4 GM/DL (3.2-5.2); ALT/SGPT 33 U/L (12-78); BILIRUBIN,DIRECT < 0.1 MG/DL (0.0-0.2); BILIRUBIN,TOTAL 0.3 MG/DL (0.2-1.0); BLOOD UREA NITROGEN 8 MG/DL (7-18); CALCIUM LEVEL 9.3 MG/DL (8.5-10.1); CARBON DIOXIDE LEVEL 27 MEQ/L (21-32); CHLORIDE LEVEL 106 MEQ/L (98-107); CREATININE FOR GFR 0.79 MG/DL (0.55-1.30); GLOMERULAR FILTRATION RATE > 60.0 (>60); GLUCOSE, FASTING 81 MG/DL (70-100); LIPASE 126 U/L (73-393); POTASSIUM SERUM 3.9 MEQ/L (3.5-5.1); SODIUM LEVEL 141 MEQ/L (136-145); TOTAL PROTEIN 7.3 GM/DL (6.4-8.2)
[2020-04-14] MEDS: GASTROGRAFIN SOLUTION 30ML PO SCH ×2 (18:59→19:24)
[2020-04-14] MEDS ORDERED: ISOVUE-370 76% 100ML VIAL As Ordered ONE (20:22)
--- NOTE | 2020-04-14 20:57 | REPVR ---
PROCEDURE INFORMATION: Exam: CT Abdomen And Pelvis With Contrast Exam date and time: 04/14/2020 8:31 PM Age: 35 years old Clinical indication: Abdominal pain; Epigastric; Prior surgery; Surgery date: 6+ months; Additional info: Epigastric pain wraps to back, HX gastric bypass, ulcers TECHNIQUE: Imaging protocol: Computed tomography of the abdomen and pelvis with intravenous contrast. Axial, coronal and sagittal reformatted images were created and reviewed. Radiation optimization: All CT scans at this facility use at least one of these dose optimization techniques: automated exposure control; mA and/or kV adjustment per patient size (includes targeted exams where dose is matched to clinical indication); or iterative reconstruction. Contrast material: ISOVUE 370; Contrast volume: 100 ml; Contrast route: INTRAVENOUS (IV); COMPARISON: CT ABD/PEL W/IV CONTRAST ONLY 09/30/2018 8:30 PM FINDINGS: Liver: Unremarkable. Gallbladder and bile ducts: Status post cholecystectomy. No biliary ductal dilatation. Pancreas: Unremarkable. Spleen: Unremarkable. Adrenal glands: Unchanged 1.3 cm low-density left adrenal nodule, likely a benign adenoma. Kidneys and ureters: No mass. No radiodense calculi. No hydronephrosis. Stomach and bowel: Status post gastric bypass surgery. Mild gastric wall thickening and edema at the anastomosis. No obstruction. No pneumatosis. Appendix: Normal. Intraperitoneal space: Trace nonspecific free pelvic fluid, likely physiologic. No organized fluid collection. No free air. Vasculature: Unremarkable. No aneurysm. Lymph nodes: No pathologically enlarged lymph nodes. Urinary bladder: Unremarkable as visualized. Reproductive: Unremarkable. Bones/joints: No acute osseous abnormality. Soft tissues: Unremarkable. IMPRESSION: 1. Status post gastric bypass surgery. Mild gastric wall thickening and edema at the anastomosis, suggestive of gastritis. 2. Additional findings, as above. Electronically signed by: Rylan Arora On 04/14/2020 20:57:07 PM
[2020-04-14] MEDS ORDERED: GI COCKTAIL 50ML BTL(HYOSCYAMINE/MAALOX/LIDOCAINE VISCOUS)(1:3:1) PO ONE (21:15)
[2020-04-14 22:12] VITALS: BP 120/79
--- NOTE | 2020-04-16 14:04 | ED PDOC ---
Post-Departure Follow-Up radiology report faxed to [facility] Andreina Holden MD Apr 16, 2020 14:04
== END 2020-04-14 22:13 | disposition home or self-care (01) ==
LOC: M ED 17:40
DX: R10.13 Epigastric pain (principal); Z98.0 Intestinal bypass and anastomosis status; J45.909 Unspecified asthma, uncomplicated; D68.2 Hereditary deficiency of other clotting factors; E28.2 Polycystic ovarian syndrome; Z79.899 Other long term (current) drug therapy; Z88.1 Allergy status to other antibiotic agents; Z88.8 Allergy status to other drugs, medicaments and biological substances; Z87.442 Personal history of urinary calculi; Z87.11 Personal history of peptic ulcer disease
CPT/HCPCS: 74177; 80048; 80076; 81001; 83690; 84702; 85025; 96374; 96375; 99284; J1885; J2405; Q9963; Q9967

== ENCOUNTER 2020-08-02 12:40 | Day surgery (SDC) | payer OTHER ==
[~2020-08-02] VITALS: Ht 157.5 cm; Wt 81.6 kg
[~2020-08-02 12:40] MED LIST changes: +BUPR150T12; -BUPR150T3; -CLIN150C14 PO; +CLIN150C15 PO; +EFFE75CA2 PO; +KRIL1CAP7 PO; +NS 1,000 ML IV ONE; +OMEP-221; +SUCR1TAB56; +VALA1TAB5
[2020-08-02] MEDS ORDERED: fentaNYL 100 MCG/2 ML INJECTION (J3010) As Ordered ONE (13:41)
[2020-08-02] MEDS ORDERED: ONDANSETRON 4MG/2ML VIAL As Ordered ONE (13:43)
[2020-08-02] MEDS ORDERED: LIDOCAINE 2% 100MG/5ML SDV (FOR ANES.) As Ordered ONE (13:53)
[2020-08-02] MEDS ORDERED: propofoL 200 MG/20 ML VIAL As Ordered ONE (13:53)
--- NOTE | 2020-08-02 13:55 | ROOR ---
Patient Name: Chay Lawton Procedure Date: 08/02/2020 1:39 PM Date of : 1985 Age: 35 Room: [facility] Gender: Female Note Status: Finalized Procedure: Upper GI endoscopy Indications: Follow-up of gastrojejunal ulcer, Nausea with vomiting Providers: Romel Thomas MD Referring MD: Galileo Osorio Md Requesting Provider: Medicines: Monitored Anesthesia Care Complications: No immediate complications. Procedure: Pre-Anesthesia Assessment: - Prior to the procedure, a History and Physical was performed, and patient medications and allergies were reviewed. The patient is competent. The risks and benefits of the procedure and the sedation options and risks were discussed with the patient. All questions were answered and informed consent was obtained. Patient identification and proposed procedure were verified by the physician, the nurse and the anesthesiologist in the procedure room. Mental Status Examination: alert and oriented. Airway Examination: normal oropharyngeal airway and neck mobility. Respiratory Examination: clear to auscultation. CV Examination: normal. Prophylactic Antibiotics: The patient does not require prophylactic antibiotics. Prior Anticoagulants: The patient has taken no previous anticoagulant or antiplatelet agents. ASA Grade Assessment: II - A patient with mild systemic disease. After reviewing the risks and benefits, the patient was deemed in satisfactory condition to undergo the procedure. The anesthesia plan was to use monitored anesthesia care (MAC). Immediately prior to administration of medications, the patient was re-assessed for adequacy to receive sedatives. The heart rate, respiratory rate, oxygen saturations, blood pressure, adequacy of pulmonary ventilation, and response to care were monitored throughout the procedure. The physical status of the patient was re-assessed after the procedure. The Endoscope was introduced through the mouth, and advanced to the second part of duodenum. The upper GI endoscopy was accomplished without difficulty. The patient tolerated the procedure well. Findings: The examined esophagus was normal. 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 The gastrojejunal anastomosis was characterized by healthy appearing mucosa, erythema and an intact staple line. This was traversed. The xjjin-gz-flgomtc limb was characterized by the presence of no stomal ulceration. The jejunojejunal anastomosis was characterized by healthy appearing mucosa. The kcggtvpg-dm-rafsbci limb was not examined as it could not be found. A 10 mm healed ulcer was found at the anastomosis. The scar tissue was healthy in appearance. Normal mucosa was found in the jejunum. Impression: - Normal esophagus. - Osvaldo-en-Y gastrojejunostomy with gastrojejunal anastomosis characterized by healthy appearing mucosa, erythema and an intact staple line. - Scar in the anastomosis. - Normal mucosa was found in the jejunum. - No specimens collected. Recommendation: - Patient has a contact number available for emergencies. The signs and symptoms of potential delayed complications were discussed with the patient. Return to normal activities tomorrow. Written discharge instructions were provided to the patient. - Post gastric bypass diet (small frequent meals and avoid fatty/ fried foods). - Continue present medications. - Use Protonix (pantoprazole) 40 mg PO BID for 6 weeks. - Use sucralfate suspension 1 gram PO QID for 4 weeks. - Return to GI clinic if persistent symptoms or new symptoms. - Return to primary care physician. Procedure Code(s): --- Professional --- 63005, Esophagogastroduodenoscopy, flexible, transoral; diagnostic, including collection of specimen(s) by brushing or washing, when performed (separate procedure) Diagnosis Code(s): --- Professional --- Z98.0, Intestinal bypass and anastomosis status K31.89, Other diseases of stomach and duodenum K28.9, Gastrojejunal ulcer, unspecified as acute or chronic, without hemorrhage or perforation R11.2, Nausea with vomiting, unspecified CPT copyright 2019 [employer]. All rights reserved. The codes documented in this report are preliminary and upon client services administrator review may be revised to meet current compliance requirements. Romel Thomas MD Romel Thomas MD 08/02/2020 1:55:00 PM Electronically signed by Romel Thomas MD Number of Addenda: 0 Note Initiated On: 08/02/2020 1:39 PM Estimated Blood Loss: Estimated blood loss was minimal.
[2020-08-02 14:11] VITALS: BP 116/66
== END 2020-08-02 14:12 | disposition home or self-care (01) ==
LOC: M OPP 12:40
PROVIDERS: ATTEND Internal Medicine Gastroenterology
DX: K31.89 Other diseases of stomach and duodenum (principal); Z98.0 Intestinal bypass and anastomosis status; K28.9 Gastrojejunal ulcer, unspecified as acute or chronic, without hemorrhage or perforation; R11.2 Nausea with vomiting, unspecified; D68.51 Activated protein C resistance; R10.11 Right upper quadrant pain; Z79.899 Other long term (current) drug therapy; Z88.8 Allergy status to other drugs, medicaments and biological substances
CPT/HCPCS: 43235; J2405; J3010